=== PATIENT | male | born 1930 | race Caucasian/White ===

== ENCOUNTER → 2017-02-01 | Outpatient (CLI) | payer MEDICARE ==
[~2017-02-01] VITALS: Ht 182.9 cm; Wt 89.6 kg
[~2017-02-01] MED LIST: AMLO5 PO; ATEN25TA PO; CHLORHEXIDINE GLUCONATE 2 % 1 PACK (2 CLOTHS) TOPICAL PRN; GALA8TAB PO; INSULIN HUMAN REGULAR 1,000 UNITS/10 ML VIAL SQ PRN; LACTATED RINGER'S 1000 ML IV PRN; LIPI40TA PO; MEMA1TAB2 PO; METOPROLOL TARTRATE 25 MG TAB PO PRN; PANT40TA3 PO; POVIDONE IODINE 5% (ANTISEPSIS KIT) 4 APPLICATIONS EACH NARE PRN; PRAD150C PO; PROPOFOL 200 MG/20 ML AMP IV ONE; SODIUM CHLORID 0.9% 500 ML IV PRN; VITA100064 PO
[2017-02-01 08:51] VITALS: BP 124/68; PULSE 72; RESP 16; TEMP 98.4; O2SAT 97
[2017-02-01 11:28] VITALS: TEMP 97.4
--- NOTE | 2017-02-01 11:29 | GIPROC ---
[facility] [address] [facility]. [facility], [id number] EGD WITH DILATION PROCEDURE REPORT EXAM DATE: 02/01/2017 PATIENT NAME: Gil Shaw MR#: [id number] BIRTHDATE: 1930 ATTENDING: Arti Campos MD ORDER #: [id number] LIVESTOCK COUNTER: Yusuf Alas and Pamela Kahn STATUS: outpatient INDICATIONS: The patient is a 86 yr old male here for an EGD with dilation due to dysphagia, history of esophageal stricture PROCEDURE PERFORMED: EGD w/ biopsy EGD w/ dilation of esophagus via guidewire MEDICATIONS: None and Per Anesthesia. TOPICAL ANESTHETIC: none CONSENT: The patient understands the risks and benefits of the procedure and understands that these risks include, but are not limited to: sedation, allergic reaction, infection, perforation and/or bleeding. Alternative means of evaluation and treatment include, among others: physical exam, x-rays, and/or surgical intervention. The patient elects to proceed with this endoscopic procedure. medical equipment was checked for proper function. Hand hygiene and appropriate measures for infection prevention was taken. After the risks, benefits and alternatives of the procedure were thoroughly explained, Informed consent was verified, confirmed and timeout was successfully executed by the treatment team. The patient was anesthetized with topical anesthesia and the Pentax EG-[id number] endoscope was introduced through the mouth and advanced to the second portion of the duodenum. The instrument was slowly withdrawn as the mucosa was fully examined. Gastritis antrum-biopsy gastric body polyps stricture distal esophagus hiatal hernia. Dilation was performed at gastroesophageal junction. DILATOR: SIZE(S): RESISTANCE: HEME: APPEARANCE: Dilator: Savary over guidewire Size(s): 14,15 COMMENT: Retroflexed views revealed a hiatal hernia ADVERSE EVENTS: There were no complications. IMPRESSIONS: 1. Gastritis antrum-biopsy gastric body polyps stricture distal esophagus hiatal hernia 2. Retroflexed views revealed a hiatal hernia RECOMMENDATIONS: 1. Await biopsy results. Biopsy results will not be ready for 7-10 days. If you don't hear from us in two weeks, call our office for biopsy results. 2. Begin feeding tomorrow 3. Continue PPI 4. Dilatations PRN 5. Restart anticoagulation REPEAT EXAM: Return as needed for EGD with dilatation Arti Campos MD eSigned: Arti Campos MD 02/01/2017 11:28 AM cc: Marco Antonio Faye M.D. PATIENT NAME: Gil Shaw MR#: [id number]
[2017-02-01 11:44] VITALS: BP 112/74; PULSE 71; RESP 16; O2SAT 96
== END ==
LOC: HEND 08:22
PROVIDERS: ATTEND Internal Medicine Gastroenterology
DX: R13.10 Dysphagia, unspecified (principal); K22.2 Esophageal obstruction; K29.70 Gastritis, unspecified, without bleeding; K31.7 Polyp of stomach and duodenum; K44.9 Diaphragmatic hernia without obstruction or gangrene
CPT/HCPCS: 00740; 43239; 43248; 88305; 88312; C1769

== ENCOUNTER 2017-04-13 19:34 | Inpatient (IN) | payer MEDICARE ==
[~2017-04-13] VITALS: Ht 180.3 cm; Wt 87.0 kg
[~2017-04-13 19:34] MED LIST changes: -CHLORHEXIDINE GLUCONATE 2 % 1 PACK (2 CLOTHS) TOPICAL PRN; -INSULIN HUMAN REGULAR 1,000 UNITS/10 ML VIAL SQ PRN; -LACTATED RINGER'S 1000 ML IV PRN; -METOPROLOL TARTRATE 25 MG TAB PO PRN; -POVIDONE IODINE 5% (ANTISEPSIS KIT) 4 APPLICATIONS EACH NARE PRN; -PROPOFOL 200 MG/20 ML AMP IV ONE; -SODIUM CHLORID 0.9% 500 ML IV PRN
[2017-04-13 19:42] VITALS: BP 118/59; PULSE 72; RESP 16; TEMP 98.7; O2SAT 97
[2017-04-13 19:46] VITALS: BP 118/59; PULSE 86; RESP 14; TEMP 98.7; O2SAT 97
[2017-04-13] MEDS ORDERED: GALA24CA PO (19:56)
[2017-04-13] MEDS ORDERED: SODIUM CHLOR 0.9% 1000 ML INJ 1,000 ML IV ONE (20:27)
[2017-04-13] MEDS ORDERED: SODIUM CHLORIDE 0.9% FLUSH 10 ML FLUSH IVF PRN (20:30)
--- NOTE | 2017-04-13 20:37 | PD ---
HPI Chief Complaint: General Weakness Time Seen by Provider: 20:37 Travel History International Travel<30 days: No Contact w/Intl Traveler<30days: No Traveled to known affect area: No History of Present Illness HPI 86-year-old male presents to the emergency department for evaluation of generalized weakness. Patient has history of atrial fibrillation, hypertension , diabetes, hyperlipidemia. He is on Pradaxa for his A. fib. The family denies any injury. According to family, he was fine yesterday. He saw Dr. Salazar who took him off his galantamine for dementia. However, his weakness started before he was supposed to take the next dose of his galantamine. Family states he has been so weak that he is hardly able to walk. He has had decreased appetite. The family states that they have been having to help him walk which is not normal for him. He normally gets around fine with his cane. He denies any fevers or headache. No chest pressure or shortness of breath. No abdominal pain. No nausea, vomiting, diarrhea. Patient is following asleep often during my exam. They state that his symptoms started around 4:30 this morning. PFSH Past Medical History Hx Anticoagulant Therapy: Yes Arthritis: Yes Cancer: Yes Cardiovascular Problems: Yes (a fib) High Cholesterol: Yes Chemotherapy: No Cerebrovascular Accident: No Diabetes: No Diminished Hearing: No Endocrine: No Gastrointestinal Disorders: Yes (Reflux) GERD: Yes Genitourinary: No Hepatitis: No Hiatal Hernia: No Hypertension: Yes Immune Disorder: No Implanted Vascular Access Dvce: Yes Musculoskeletal: Yes (ARTHRITIS) Neurologic: Yes (DEMENTIA) Psychiatric: No Reproductive: No Respiratory: No Thyroid Disease: No Past Surgical History Abdominal Surgery: No AICD: No Appendectomy: Yes Body Medical Devices: Right knee Cardiac Surgery: No Ear Surgery: No Eye Surgery: Yes (DETACHED RETINA REPAIR) Genitourinary Surgery: Yes Gynecologic Surgery: No Joint Replacement: Yes (R TKA) Oral Surgery: No Pacemaker: No Prostatectomy: Yes (Partial) Thoracic Surgery: No Other Surgery: Yes (Right knee, appentecdomy, TURP, esoph stricture stretched) Social History Alcohol Use: Yes (2-3 times weekly) Tobacco Use: No (QUIT 1964) Substance Use: No Allergies-Medications (Allergen,Severity, Reaction): Coded Allergies: Sulfa (Verified Allergy, Severe, MIGRAINES, RED EYES, 04/13/17) Reported Meds & Prescriptions Reported Meds & Active Scripts Active Pradaxa (Dabigatran) 150 Mg Cap 150 Mg PO BID resume on 07/27 Reported Galantamine ER (Galantamine Hydrobromide) 24 Mg Caper 24 Mg PO DAILY Vitamin D3 (Cholecalciferol) 1,000 Unit Tab 1,000 Units PO DAILY Pantoprazole (Pantoprazole Sodium) 40 Mg Tab 40 Mg PO BID Memantine 10 Mg Tab 10 Mg PO BID Norvasc (Amlodipine Besylate) 5 Mg Tab 5 Mg PO BID Lipitor (Atorvastatin Calcium) 40 Mg Tab 40 Mg PO HS Atenolol 25 Mg Tab 25 Mg PO DAILY Review of Systems Except as stated in HPI: all other systems reviewed are Neg Physical Exam Narrative GENERAL: Well-nourished, well-developed elderly male patient, afebrile. SKIN: Focused skin assessment warm/dry. HEAD: Normocephalic. Atraumatic. EYES: No scleral icterus. No injection or drainage. NECK: Supple, trachea midline. No JVD or lymphadenopathy. CARDIOVASCULAR: Regular rate and rhythm without murmurs, gallops, or rubs. RESPIRATORY: Breath sounds equal bilaterally. No accessory muscle use. Lungs sounds clear to auscultation. GASTROINTESTINAL: Abdomen soft, non-tender, nondistended. MUSCULOSKELETAL: No cyanosis, or edema. Bilateral upper and lower extremity strength 5/5. All extremities are neurovascularly intact. BACK: Nontender without obvious deformity. No CVA tenderness. Data Data Last Documented VS Vital Signs Date Time Temp Pulse Resp B/P Pulse Ox O2 Delivery O2 Flow Rate FiO2 04/13/17 22:30 82 12 120/64 98 04/13/17 19:46 Room Air 04/13/17 19:46 98.7 Orders Electrocardiogram (04/13/17 20:15) Complete Blood Count With Diff (04/13/17 20:15) Comprehensive Metabolic Panel (04/13/17 20:15) Iv Access Insert/Monitor (04/13/17 20:15) Lactic Acid (04/13/17 20:15) Act Partial Throm Time (Ptt) (04/13/17 20:27) Prothrombin Time / Inr (Pt) (04/13/17 20:27) Urinalysis - C+S If Indicated (04/13/17 20:27) Chest, Single Ap (04/13/17 20:27) Ct Brain W/O Iv Contrast(Rout) (04/13/17 20:27) Ecg Monitoring (04/13/17 20:27) Oximetry (04/13/17 20:27) Sodium Chloride 0.9% Flush (Ns Flush) (04/13/17 20:30) Sodium Chlor 0.9% 1000 Ml Inj (Ns 1000 M (04/13/17 20:27) Blood Culture (04/13/17 20:33) Ckmb (Isoenzyme) Profile (04/13/17 20:18) Magnesium (Mg) (04/13/17 20:18) Troponin I (04/13/17 20:18) CKMB (04/13/17 20:18) CKMB% (04/13/17 20:18) Cath For Specimen (04/13/17 21:40) Urine Culture (04/13/17 22:09) Ceftriaxone Inj (Rocephin Inj) (04/13/17 23:00) Thyroid Stimulating Hormone (04/13/17 22:56) Free Thyroxine (T4) (04/13/17 22:56) Rapid Plasma Regin (Rpr) W Ttr (04/13/17 22:56) Vitamin B12 (04/13/17 22:56) Folate, Serum (04/13/17 22:56) Ammonia (04/13/17 22:56) Place In Observation (04/13/17 ) Code Status (04/13/17 22:56) Vital Signs (Adult) Q4H (04/13/17 22:56) Activity Oob With Assistance (04/13/17 22:56) Outsole Cutter Machine / Telemetry .CONTINUOUS (04/13/17 22:56) Diet Heart Healthy (04/14/17 Breakfast) Sodium Chloride 0.9% Flush (Ns Flush) (04/13/17 23:00) Sodium Chloride 0.9% Flush (Ns Flush) (04/14/17 09:00) Acetaminophen (Tylenol) (04/13/17 23:00) Ondansetron Inj (Zofran Inj) (04/13/17 23:00) Basic Metabolic Panel (Bmp) (04/14/17 06:00) Complete Blood Count With Diff (04/14/17 06:00) Electrocardiogram (04/13/17 22:56) Pt Request For Service (04/13/17 22:56) Scd Bilateral/Knee High KUNLA.BID (04/13/17 22:56) Naloxone Inj (Narcan Inj) (04/13/17 23:00) Magnesium Hydroxide Liq (Milk Of Magnesi (04/13/17 23:00) Echo 2d Comp With Doppler (04/13/17 ) Amlodipine (Norvasc) (04/14/17 09:00) Atenolol (Tenormin) (04/14/17 09:00) Atorvastatin (Lipitor) (04/14/17 21:00) Cholecalciferol (Vitamin D3) (04/14/17 09:00) Dabigatran (Pradaxa) (04/14/17 09:00) Memantine (Namenda) (04/14/17 09:00) Pantoprazole (Protonix) (04/14/17 09:00) Admit Order (Ed Use Only) (04/13/17 23:01) Labs Laboratory Tests Test 04/13/17 04/13/17 04/13/17 20:18 20:30 22:09 White Blood Count 14.5 TH/MM3 Red Blood Count 3.63 MIL/MM3 Hemoglobin 12.0 GM/DL Hematocrit 35.8 % Mean Corpuscular Volume 98.5 FL Mean Corpuscular Hemoglobin 33.1 PG Mean Corpuscular Hemoglobin 33.6 % Concent Red Cell Distribution Width 13.9 % Platelet Count 176 TH/MM3 Mean Platelet Volume 9.7 FL Neutrophils (%) (Auto) 81.4 % Lymphocytes (%) (Auto) 4.9 % Monocytes (%) (Auto) 13.5 % Eosinophils (%) (Auto) 0.0 % Basophils (%) (Auto) 0.2 % Neutrophils # (Auto) 11.8 TH/MM3 Lymphocytes # (Auto) 0.7 TH/MM3 Monocytes # (Auto) 1.9 TH/MM3 Eosinophils # (Auto) 0.0 TH/MM3 Basophils # (Auto) 0.0 TH/MM3 CBC Comment DIFF FINAL Differential Comment Sodium Level 135 MEQ/L Potassium Level 4.0 MEQ/L Chloride Level 104 MEQ/L Carbon Dioxide Level 23.0 MEQ/L Anion Gap 8 MEQ/L Blood Urea Nitrogen 22 MG/DL Creatinine 1.09 MG/DL Estimat Glomerular Filtration 64 ML/MIN Rate Random Glucose 163 MG/DL Lactic Acid Level 1.9 mmol/L Calcium Level 8.5 MG/DL Magnesium Level 1.8 MG/DL Total Bilirubin 1.4 MG/DL Aspartate Amino Transf 15 U/L (AST/SGOT) Alanine Aminotransferase 14 U/L (ALT/SGPT) Alkaline Phosphatase 79 U/L Total Creatine Kinase 131 U/L Creatine Kinase MB LESS THAN 0.5 NG/ML Troponin I LESS THAN 0.02 NG/ML Total Protein 7.2 GM/DL Albumin 3.1 GM/DL Prothrombin Time 12.8 SEC Prothromb Time International 1.2 RATIO Ratio Activated Partial 31.4 SEC Thromboplast Time Urine Color YELLOW Urine Turbidity CLOUDY Urine pH 8.0 Urine Specific [place] 1.023 Urine Protein 100 mg/dL Urine Glucose (UA) NEG mg/dL Urine Ketones 10 mg/dL Urine Occult Blood SMALL Urine Nitrite NEG Urine Bilirubin NEG Urine Urobilinogen LESS THAN 2.0 MG/DL Urine Leukocyte Esterase LARGE Urine RBC 8 /hpf Urine WBC /hpf Urine WBC Clumps MANY Urine Triple Phosphate OCC /hpf Crystals Urine Bacteria MANY /hpf Urine Mucus FEW /lpf Microscopic Urinalysis Comment CULTURE INDICATED MDM Medical Decision Making Medical Screen Exam Complete: Yes Emergency Medical Condition: Yes Medical Record Reviewed: Yes Interpretation(s) chest x-ray - CONCLUSION: No acute disease. CT brain - CONCLUSION: Cerebral atrophy and chronic ischemic small vessel vasculopathy. Differential Diagnosis Electrolyte abnormality versus dehydration versus pneumonia versus UTI versus sepsis versus intracranial abnormality Narrative Course 86 year old elderly male presents to the emergency department with his 2 daughters and at bedside for evaluation of generalized weakness that started this morning. EKG shows atrial fibrillation, heart rate 89, no acute ST changes. CBC, CMP, magnesium, CK, troponin, lactic acid, PTT, PT/INR, UA, blood cultures 2 are ordered and pending. Chest x-ray and CT of the brain are ordered and pending. Patient is given normal saline 1 L IV bolus. CBC shows leukocytosis 14.5, hemoglobin 12.0, hematocrit 35.8, neutrophilia 81.4. CMP shows no acute abnormality. Magnesium is 1.8. CK is 131. Troponin is less than 0.02. Lactic acid is 1.9. Coags show no acute abnormality. UA shows large leukocyte esterase, 8 RBC, innumerable WBC, many wbc clumps, many bacteria. Chest x-ray shows no acute disease. CT of the brain shows cerebral atrophy and chronic ischemic small vessel vasculopathy. Patient started on Rocephin 1 g IV. [facility] is paged for admission. Dr. Moreland accepted admission. Diagnosis Primary Impression: UTI (urinary tract infection) Qualified Code: N30.01 - Acute cystitis with hematuria Additional Impression: Generalized weakness Admitting Information Admitting Physician Requests: Deanne Childers Apr 13, 2017 20:37
--- NOTE | 2017-04-13 20:45 | RADRPT ---
EXAM DATE/TIME: 04/13/2017 20:26 [facility] COMPARISON: CHEST SINGLE AP, July 22, 2016, 1:26. INDICATIONS : Syncope. Weakness. MEDICAL HISTORY : None. SURGICAL HISTORY : None. ENCOUNTER: Initial ACUITY: 1 day PAIN SCORE: 5/10 LOCATION: Bilateral chest FINDINGS: A single view of the chest demonstrates the lungs to be symmetrically aerated without evidence of mas s, infiltrate or effusion. The cardiomediastinal contours are unremarkable. Osseous structures are intact. CONCLUSION: No acute disease. Guzman Sharp MD on April 13, 2017 at 20:41 Board Certified Radiologist. This report was verified electronically.
[2017-04-13 20:48] LABS: AUTOMATED NEUTROPHIL # 11.8 TH/MM3 (1.8-7.7); BASOPHIL % 0.2 % (0.0-2.0); HEMATOCRIT 35.8 % (39.0-51.0); HEMO FLAGS DIFF FINAL; LYMPH % 4.9 % (9.0-44.0); LYMPHOCYTE # 0.7 TH/MM3 (1.0-4.8); MEAN CELL VOLUME 98.5 FL (80.0-100.0); MEAN CORPUSCULAR HEMOGLOBIN 33.1 PG (27.0-34.0); MEAN CORPUSCULAR HGB CONC 33.6 % (32.0-36.0); MONO % 13.5 % (0.0-8.0); NEUT % 81.4 % (16.0-70.0); PLATELET COUNT 176 TH/MM3 (150-450); RED BLOOD COUNT 3.63 MIL/MM3 (4.50-5.90); RED CELL DISTRIBUTION WIDTH 13.9 % (11.6-17.2); WHITE BLOOD COUNT 14.5 TH/MM3 (4.0-11.0)
--- NOTE | 2017-04-13 20:57 | RADRPT ---
EXAM DATE/TIME: 04/13/2017 20:39 [facility] COMPARISON: No previous studies available for comparison. INDICATIONS : General weakness. RADIATION DOSE: 56.35 CTDIvol (mGy) MEDICAL HISTORY : Dementia. Gastroesophageal reflux disease. Myocardial infarction.Hypertension. SURGICAL HISTORY : Appendectomy. Prostatectomy.TURP. ENCOUNTER: Initial ACUITY: 1 day PAIN SCALE: 0/10 LOCATION: cranial TECHNIQUE: Multiple contiguous axial images were obtained of the head. Using automated exposure control and adj ustment of the mA and/or kV according to patient size, radiation dose was kept as low as reasonably a chievable to obtain optimal diagnostic quality images. DICOM format image data is available electro nically for review and comparison. FINDINGS: There is marked central and cortical atrophy with dilatation of ventricular and sulcal spaces. Scatte red low densities in white matter. There is no parenchymal hemorrhage, acute infarction or mass lesi on identified. There are no extra-axial fluid collections appreciated. The posterior fossa is unrem arkable with midline fourth ventricle. The portion of the orbits and paranasal sinuses visualized ar e unremarkable. CONCLUSION: Cerebral atrophy and chronic ischemic small vessel vasculopathy. Guzman Sharp MD on April 13, 2017 at 20:49 Board Certified Radiologist. This report was verified electronically.
[2017-04-13 21:07] LABS: ALT (GPT) 14 U/L (12-78); ANION GAP 8 MEQ/L (5-15); AST (GOT) 15 U/L (15-37); BLOOD UREA NITROGEN 22 MG/DL (7-18); CHLORIDE 104 MEQ/L (98-107); GLOMERULAR FILTRATION RATE 64 ML/MIN (>89); SODIUM (NA) 135 MEQ/L (136-145)
[2017-04-13 21:10] LABS: ALKALINE PHOSPHATASE 79 U/L (45-117); TOTAL BILIRUBIN ADULT 1.4 MG/DL (0.2-1.0)
[2017-04-13 21:20] VITALS: BP 116/60; PULSE 84; RESP 12; O2SAT 100
[2017-04-13 21:20] LABS: MAGNESIUM 1.8 MG/DL (1.5-2.5)
[2017-04-13 21:22] LABS: CREATINE KINASE 131 U/L (39-308)
[2017-04-13 21:24] LABS: APTT (PATIENT) 31.4 SEC (24.3-30.1); INTERNATIONAL NORMALIZED RATIO 1.2 RATIO; PROTHROMBIN TIME - PATIENT 12.8 SEC (9.8-11.6)
[2017-04-13 21:34] LABS: CKMB LESS THAN 0.5 NG/ML (0.5-3.6)
[2017-04-13 22:30] VITALS: BP 120/64; PULSE 82; RESP 12; O2SAT 98
[2017-04-13 22:50] LABS: BACTERIA, URINE MANY /hpf; BLOOD, URINE SMALL (NEG); GLUCOSE,URINE NEG (NEG); KETONE, URINE 10 mg/dL (NEG); MUCUS URINE FEW /lpf (OCC); NITRITE,URINE NEG (NEG); TRIPLE PHOSPHATE CRYSTAL,URINE OCC /hpf; URINE COLOR YELLOW (YELLW/STRAW)
[2017-04-13 22:52] LABS: COMMENT (UR) CULTURE INDICATED; CULTURE IF INDICATED CULTURE INDICATED
[2017-04-13] MEDS ORDERED: MAGNESIUM HYDROXIDE SUSP 30 ML CUP PO PRN (23:00)
[2017-04-13] MEDS ORDERED: NALOXONE HCL 0.4 MG/ML AMP IV PRN (23:00)
[2017-04-13] MEDS ORDERED: SODIUM CHLORIDE 0.9% FLUSH 10 ML FLUSH IV FLUSH PRN (23:00)
[2017-04-13] MEDS ORDERED: ONDANSETRON HCL 4 MG/2 ML VIAL IVP PRN (23:00)
[2017-04-13] MEDS ORDERED: cefTRIAXone INJ 1,000 MG in SODIUM CHLORIDE 0.9% INJ 100 ML IV ONE (23:00)
[2017-04-14] VITALS (11 sets, daily range): BP systolic 115–137; BP diastolic 65–76; PULSE 68–92; RESP 18–20; TEMP 97.8–98.7; O2SAT 92–97
[2017-04-14 01:13] LABS: FREE T4 1.45 NG/DL (0.76-1.46)
[2017-04-14 08:33] LABS: AUTOMATED NEUTROPHIL # 10.3 TH/MM3 (1.8-7.7); BASOPHIL # 0.1 TH/MM3 (0-0.2); BASOPHIL % 0.5 % (0.0-2.0); HEMATOCRIT 37.3 % (39.0-51.0); HEMO FLAGS DIFF FINAL; LYMPH % 9.5 % (9.0-44.0); LYMPHOCYTE # 1.3 TH/MM3 (1.0-4.8); MEAN CELL VOLUME 96.9 FL (80.0-100.0); MEAN CORPUSCULAR HEMOGLOBIN 33.4 PG (27.0-34.0); MEAN CORPUSCULAR HGB CONC 34.5 % (32.0-36.0); MONO % 12.6 % (0.0-8.0); NEUT % 77.4 % (16.0-70.0); PLATELET COUNT 167 TH/MM3 (150-450); RED BLOOD COUNT 3.85 MIL/MM3 (4.50-5.90); WHITE BLOOD COUNT 13.2 TH/MM3 (4.0-11.0)
[2017-04-14] MEDS: amLODIPine BESYLATE 5 MG TAB PO SCH ×2 (09:00→20:09)
[2017-04-14] MEDS: DABIGATRAN ETEXILATE 150 MG CAP PO SCH ×2 (09:00→20:08)
[2017-04-14] MEDS: ATENOLOL 25 MG TAB PO SCH (09:00)
[2017-04-14] MEDS: CHOLECALCIFEROL (VIT D3) 1000 UNIT TAB PO SCH (09:00)
[2017-04-14] MEDS: MEMANTINE HCL 10 MG TAB PO SCH ×2 (09:00→20:09)
[2017-04-14] MEDS: SODIUM CHLORIDE 0.9% FLUSH 10 ML FLUSH IV FLUSH SCH ×2 (09:00→20:13)
[2017-04-14] MEDS: PANTOPRAZOLE SOD 40 MG DELAYED RELEASE TAB PO SCH ×2 (09:00→20:08)
[2017-04-14 09:01] LABS: BICARBONATE 23.8 MEQ/L (21.0-32.0); POTASSIUM 3.4 MEQ/L (3.5-5.1)
--- NOTE | 2017-04-14 12:17 | HHI.HP ---
HPI Service [facility] Hospitalists Primary Care Physician Marco Antonio Faye MD Admission Diagnosis UTI, generalized weakness Chief Complaint: worsening generalized weakness. Travel History International Travel<30 Days: No Contact w/Intl Traveler <30 Da: No Traveled to Known Affected Are: No History of Present Illness Patient is a pleasant 86-year-old male with multiple medical problems including hypertension, atrial fibrillation, hyperlipidemia, and dementia. Most recently patient was hospitalized at [facility] July 22 through July due to esophageal stricture, food bolus obstruction of the esophagus, and new onset atrial fibrillation. Patient now returns to the [facility] ER with complaints of worsening generalized weakness. Patient's explains that he has been having a gradual decline. Previously patient ambulated with a cane only outside of the house, but now he needs the cane to ambulate even with in the house. His fatigue has greatly worsened over the last few days. Patient became fatigued yesterday to the point where he was unable to ambulate without significant assistance from his family. Workup in the ER revealed urinary tract infection and patient was started on intravenous Rocephin. Patient admitted to [facility] for further evaluation and treatment. I reviewed patient's last neurology visit with Dr. Salazar (04/12/17). Patient complained of fatigue at that time as well. Dr. Salazar was concerned that possibly patient's weakness could be related to his galantamine and asked that the family hold the galantamine for a week and see if his symptoms improved. Patient denies chest pain, palpitations, nausea and vomiting, diaphoresis, or worsening shortness of breath. Past Family Social History Past Medical History 1) hypertension 2) atrial fibrillation - on pradaxa - pt follows with Dr. Chapa 3) hyperlipidemia 4) dementia 5) esophageal stricture, status post dilation 6) pulmonary hypertension, mild 7) GERD 8) BPH - TURP 08/10/13 - Pt's Urologist is Dr. 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 History of Appendectomy 193 2. History of Cataract Surgery left eye in 2007 3. History of Complete Colonoscopy Colonoscopy on: 03-07-04 (diverticuloisis in the descending and sigmoid colon); 04-02-11 (normal colon) 4. History of Diagnostic Esophagogastroduodenoscopy 08/31/[address] Campos revealed gastritis in the antrum, stricture at the GE junction dilated to 14 mm and a sessile polyp in the body of the stomach. Pathology revealed mild chronic active gastritis and a hyperplastic polyp.f/u in six weeks.EGD on: 07-22-16 (food impaction distal esophagus; stricture of distal esophagus); 07-26-16 (dilation of an esophageal stricture , gastritis, gastric polyps, hiatal hernia) 5. History of Discission Of Secondary Membranous Cataract By Laser 6. History of Esophageal Dilation patient has had multiple dilations in the past. Last two: 06-17-05; (EGD with dilation of stricture at GE junction, gastritis, polyp in stomach) 7. History of Repair Of Retinal Detachment left eye 1994 8. History of Sigmoidoscopy (Fiberoptic) 9. History of Stress Test By Pharmacologic Challenge A myocardial perfusion scan on 06-25-16 was negative with an EF of 68%. 10. History of Total Knee Arthroplasty right knee 1997 11. History of Transurethral Resection Of Prostate (TURP) TURP on 08-10-13 Reported Medications Reported Meds & Active Scripts Active Pradaxa (Dabigatran) 150 Mg Cap 150 Mg PO BID resume on 07/27 Reported Galantamine ER (Galantamine Hydrobromide) 24 Mg Caper 24 Mg PO DAILY Vitamin D3 (Cholecalciferol) 1,000 Unit Tab 1,000 Units PO DAILY Pantoprazole (Pantoprazole Sodium) 40 Mg Tab 40 Mg PO BID Memantine 10 Mg Tab 10 Mg PO BID Norvasc (Amlodipine Besylate) 5 Mg Tab 5 Mg PO BID Lipitor (Atorvastatin Calcium) 40 Mg Tab 40 Mg PO HS Atenolol 25 Mg Tab 25 Mg PO DAILY Allergies: Coded Allergies: Sulfa (Verified Allergy, Severe, MIGRAINES, RED EYES, 04/13/17) Family History Noncontributory Social History - - Retired - Former smoker - No alcohol use - no illicit street drugs - Physical Exam Vital Signs Vital Signs Date Time Temp Pulse Resp B/P Pulse Ox O2 Delivery O2 Flow Rate FiO2 04/14/17 10:58 78 04/14/17 08:14 97.8 75 18 137/66 96 04/14/17 05:13 98.4 74 18 129/67 96 04/14/17 02:14 79 04/14/17 00:06 98.0 68 18 115/67 97 04/13/17 22:30 82 12 120/64 98 04/13/17 21:20 84 12 116/60 100 04/13/17 19:46 82 16 98 Room Air 04/13/17 19:46 98.7 86 14 118/59 97 04/13/17 19:42 98.7 72 16 118/59 97 Physical Exam GENERAL: This is a well-nourished, well-developed patient, in no apparent distress. SKIN: No rashes, ecchymoses or lesions. Cool and dry. HEAD: Atraumatic. Normocephalic. No temporal or scalp tenderness. EYES: Pupils equal round and reactive. Extraocular motions intact. No scleral icterus. No injection or drainage. ENT: Nose without bleeding, purulent drainage or septal hematoma. Throat without erythema, tonsillar hypertrophy or exudate. Uvula midline. Airway patent. NECK: Trachea midline. No JVD or lymphadenopathy. Supple, nontender, no meningeal signs. CARDIOVASCULAR: Regular rate and rhythm without murmurs, gallops, or rubs. RESPIRATORY: Clear to auscultation. Breath sounds equal bilaterally. No wheezes , rales, or rhonchi. GASTROINTESTINAL: Abdomen soft, non-tender, nondistended. No hepato-splenomegaly , or palpable masses. No guarding. MUSCULOSKELETAL: Extremities without clubbing, cyanosis, or edema. No joint tenderness, effusion, or edema noted. No calf tenderness. Negative Homans sign bilaterally. NEUROLOGICAL: Awake and alert. Cranial nerves II through XII intact. Motor and sensory grossly within normal limits. Five out of 5 muscle strength in all muscle groups. Normal speech. Laboratory Laboratory Tests Test 04/13/17 04/13/17 04/13/17 04/14/17 20:18 20:30 22:09 08:15 White Blood Count 14.5 13.2 Red Blood Count 3.63 3.85 Hemoglobin 12.0 12.9 Hematocrit 35.8 37.3 Mean Corpuscular Volume 98.5 96.9 Mean Corpuscular Hemoglobin 33.1 33.4 Mean Corpuscular Hemoglobin 33.6 34.5 Concent Red Cell Distribution Width 13.9 14.0 Platelet Count 176 167 Mean Platelet Volume 9.7 9.5 Neutrophils (%) (Auto) 81.4 77.4 Lymphocytes (%) (Auto) 4.9 9.5 Monocytes (%) (Auto) 13.5 12.6 Eosinophils (%) (Auto) 0.0 0.0 Basophils (%) (Auto) 0.2 0.5 Neutrophils # (Auto) 11.8 10.3 Lymphocytes # (Auto) 0.7 1.3 Monocytes # (Auto) 1.9 1.7 Eosinophils # (Auto) 0.0 0.0 Basophils # (Auto) 0.0 0.1 CBC Comment DIFF FINAL DIFF FINAL Differential Comment Sodium Level 135 137 Potassium Level 4.0 3.4 Chloride Level 104 105 Carbon Dioxide Level 23.0 23.8 Anion Gap 8 8 Blood Urea Nitrogen 22 18 Creatinine 1.09 0.84 Estimat Glomerular Filtration 64 87 Rate Random Glucose 163 121 Lactic Acid Level 1.9 Calcium Level 8.5 8.7 Magnesium Level 1.8 Total Bilirubin 1.4 Aspartate Amino Transf 15 (AST/SGOT) Alanine Aminotransferase 14 (ALT/SGPT) Alkaline Phosphatase 79 Total Creatine Kinase 131 Creatine Kinase MB LESS THAN 0.5 Troponin I LESS THAN 0.02 Total Protein 7.2 Albumin 3.1 Vitamin B12 Level 217 Folate 15.8 Free Thyroxine 1.45 Thyroid Stimulating Hormone 0.893 3rd Gen Prothrombin Time 12.8 Prothromb Time International 1.2 Ratio Activated Partial 31.4 Thromboplast Time Urine Color YELLOW Urine Turbidity CLOUDY Urine pH 8.0 Urine Specific [place] 1.023 Urine Protein 100 Urine Glucose (UA) NEG Urine Ketones 10 Urine Occult Blood SMALL Urine Nitrite NEG Urine Bilirubin NEG Urine Urobilinogen LESS THAN 2.0 Urine Leukocyte Esterase LARGE Urine RBC 8 Urine WBC Urine WBC Clumps MANY Urine Triple Phosphate OCC Crystals Urine Bacteria MANY Urine Mucus FEW Microscopic Urinalysis Comment CULTURE INDICATED Ammonia 14 Date/Time Procedure Status Source Growth 04/13/17 22:09 Urine Culture Received Urine Random Urine Pending 04/13/17 21:38 Aerobic Blood Culture - Preliminary Resulted Blood Peripheral NO GROWTH IN 1 DAY 04/13/17 21:38 Anaerobic Blood Culture - Preliminary Resulted Blood Peripheral NO GROWTH IN 1 DAY Result Diagram: 04/14/17 0815 04/14/17 0815 Imaging Last Impressions Head CT 04/13/172026 Signed Impressions: Service Date/Time: Thursday, April 13, 2017 20:39 - CONCLUSION: Cerebral atrophy and chronic ischemic small vessel vasculopathy. Guzman Sharp MD Chest X-Ray 04/13/172026 Signed Impressions: Service Date/Time: Thursday, April 13, 2017 20:26 - CONCLUSION: No acute disease. Guzman Sharp MD Septic Shock Reassessment Heart: Regular rate and rhythm Lungs: Clear Skin: Warm Peripheral Pulses: Bounding Right Radial Bounding Left Radial Bounding Right Popliteal Bounding Left Popliteal Bounding Right Dorsalis Pedis Bounding Left Dorsalis Pedis Bounding Right Posterior Tibial Bounding Left Posterior Tibial Capillary Refill: Brisk Assessment and Plan Problem List: (1) UTI (urinary tract infection) Status: Acute Plan: - Patient started on Rocephin - Awaiting urine culture (2) Generalized weakness Status: Acute Plan: - Likely exacerbated by patient's urinary tract infection - Echocardiogram pending - Continue physical therapy - Patient would benefit from SNF at the end of this hospitalization - anticipate d/c to SNF 04/15/17 - Family specifically would like Mr. Shaw to go to [facility]. I will defer that process to case management. (3) Atrial fibrillation Status: Chronic Plan: - Atenolol, pradaxa (4) HTN (hypertension) Status: Chronic Plan: - stable - metoprolol (5) Dementia Status: Acute Plan: - Patient follows with Dr. Salazar - Patient instructed by been awake to hold his gland to mean for a week to see if that was causing his fatigue - Namenda (6) Diabetes mellitus type 2, diet-controlled Status: Chronic Plan: - Diet controlled (7) Esophageal stricture Status: Acute Plan: - s/p dilation - PPI Problem Qualifiers (1) UTI (urinary tract infection): Qualified Code: N30.01 - Acute cystitis with hematuria (2) Atrial fibrillation: Qualified Code: I48.2 - Chronic atrial fibrillation (3) HTN (hypertension): Qualified Code: I10 - Essential hypertension Jean-Paul Moreland DO Apr 14, 2017 12:16
[2017-04-14] MEDS ORDERED: POTASSIUM CHLORIDE 20 MEQ CONTROLLED RELEASE TAB PO ONE (12:45)
[2017-04-14] MEDS: PHENAZOPYRIDINE HCL 100 MG TAB PO SCH (17:03)
[2017-04-14] MEDS: 1/2 NS + KCL 20 MEQ INJ 1,000 ML IV SCH (17:03)
[2017-04-14] MEDS: ATORVASTATIN 40 MG TAB PO SCH (20:08)
[2017-04-15] VITALS (7 sets, daily range): BP systolic 119–144; BP diastolic 68–93; PULSE 80–107; RESP 14–20; TEMP 97.9–99; O2SAT 92–95
[2017-04-15] MEDS: PHENAZOPYRIDINE HCL 100 MG TAB PO SCH ×3 (00:58→15:50)
[2017-04-15] MEDS: 1/2 NS + KCL 20 MEQ INJ 1,000 ML IV SCH (04:29)
[2017-04-15 07:54] LABS: AUTOMATED NEUTROPHIL # 8.1 TH/MM3 (1.8-7.7); BASOPHIL % 0.4 % (0.0-2.0); EOSINOPHIL # 0.1 TH/MM3 (0-0.4); EOSINOPHIL % 0.5 % (0.0-4.0); HEMATOCRIT 35.9 % (39.0-51.0); HEMO FLAGS DIFF FINAL; LYMPH % 11.7 % (9.0-44.0); LYMPHOCYTE # 1.3 TH/MM3 (1.0-4.8); MEAN CELL VOLUME 97.9 FL (80.0-100.0); MEAN CORPUSCULAR HEMOGLOBIN 33.6 PG (27.0-34.0); MEAN CORPUSCULAR HGB CONC 34.4 % (32.0-36.0); MONO % 13.4 % (0.0-8.0); PLATELET COUNT 184 TH/MM3 (150-450); RED BLOOD COUNT 3.67 MIL/MM3 (4.50-5.90); RED CELL DISTRIBUTION WIDTH 13.7 % (11.6-17.2)
[2017-04-15 08:16] LABS: BICARBONATE 24.1 MEQ/L (21.0-32.0); POTASSIUM 3.9 MEQ/L (3.5-5.1)
[2017-04-15] MEDS: PANTOPRAZOLE SOD 40 MG DELAYED RELEASE TAB PO SCH ×2 (08:20→20:08)
[2017-04-15] MEDS: DABIGATRAN ETEXILATE 150 MG CAP PO SCH ×2 (08:20→20:08)
[2017-04-15] MEDS: MEMANTINE HCL 10 MG TAB PO SCH ×2 (08:20→20:08)
[2017-04-15] MEDS: ATENOLOL 25 MG TAB PO SCH (08:20)
[2017-04-15] MEDS: SODIUM CHLORIDE 0.9% FLUSH 10 ML FLUSH IV FLUSH SCH ×2 (08:20→20:09)
[2017-04-15] MEDS: CHOLECALCIFEROL (VIT D3) 1000 UNIT TAB PO SCH (08:20)
[2017-04-15] MEDS: amLODIPine BESYLATE 5 MG TAB PO SCH ×2 (08:20→20:08)
[2017-04-15] MEDS ORDERED: cefTRIAXone INJ 1,000 MG in SODIUM CHLORIDE 0.9% INJ 100 ML IV SCH (09:00)
--- NOTE | 2017-04-15 09:29 | EKG ---
Date Performed: 04/13/2017 Time Performed: 19:44:59 PTAGE: 86 years EKG: ATRIAL FIBRILLATION WITH ABERRANT CONDUCTION OR VENTRICULAR PREMATURE COMPLEXES NONSPECIFIC ST & T-WAVE ABNORMALITY Consider anterolateral ischemia ABNORMAL RHYTHM ECG PREVIOUS TRACING : 07/21/2016 20.45 DOCTOR: Skip Garibay Interpretating Date/Time 04/15/2017 09:29:00
[2017-04-15 10:30] LABS: RAPID PLASMA REAGIN SCREEN NON-REACTIVE (NON-REACTVE)
--- NOTE | 2017-04-15 11:01 | HHI.PR ---
Subjective Remarks No new complaints. Afebrile present at bedside and is agreeable to rehab. Objective Vitals Vital Signs Date Time Temp Pulse Resp B/P Pulse Ox O2 Delivery O2 Flow Rate FiO2 04/15/17 08:06 95 Nasal Cannula 2.00 04/15/17 07:43 98.1 88 14 131/68 95 04/15/17 04:24 98.1 95 18 142/93 92 04/14/17 23:45 98.7 68 18 129/76 92 04/14/17 20:23 82 04/14/17 19:38 98.1 92 18 130/74 92 04/14/17 16:10 97.8 85 20 132/65 96 04/14/17 14:56 71 04/14/17 12:00 97.9 87 18 130/75 96 04/14/17 10:58 78 Result Diagram: 04/15/17 0706 04/15/17 0706 Other Results Laboratory Tests Test 04/13/17 04/13/17 04/13/17 04/14/17 20:18 20:30 22:09 08:15 White Blood Count 14.5 TH/MM3 13.2 TH/MM3 Red Blood Count 3.63 MIL/MM3 3.85 MIL/MM3 Hemoglobin 12.0 GM/DL 12.9 GM/DL Hematocrit 35.8 % 37.3 % Mean Corpuscular Volume 98.5 FL 96.9 FL Mean Corpuscular Hemoglobin 33.1 PG 33.4 PG Mean Corpuscular Hemoglobin 33.6 % 34.5 % Concent Red Cell Distribution Width 13.9 % 14.0 % Platelet Count 176 TH/MM3 167 TH/MM3 Mean Platelet Volume 9.7 FL 9.5 FL Neutrophils (%) (Auto) 81.4 % 77.4 % Lymphocytes (%) (Auto) 4.9 % 9.5 % Monocytes (%) (Auto) 13.5 % 12.6 % Eosinophils (%) (Auto) 0.0 % 0.0 % Basophils (%) (Auto) 0.2 % 0.5 % Neutrophils # (Auto) 11.8 TH/MM3 10.3 TH/MM3 Lymphocytes # (Auto) 0.7 TH/MM3 1.3 TH/MM3 Monocytes # (Auto) 1.9 TH/MM3 1.7 TH/MM3 Eosinophils # (Auto) 0.0 TH/MM3 0.0 TH/MM3 Basophils # (Auto) 0.0 TH/MM3 0.1 TH/MM3 CBC Comment DIFF FINAL DIFF FINAL Differential Comment Sodium Level 135 MEQ/L 137 MEQ/L Potassium Level 4.0 MEQ/L 3.4 MEQ/L Chloride Level 104 MEQ/L 105 MEQ/L Carbon Dioxide Level 23.0 MEQ/L 23.8 MEQ/L Anion Gap 8 MEQ/L 8 MEQ/L Blood Urea Nitrogen 22 MG/DL 18 MG/DL Creatinine 1.09 MG/DL 0.84 MG/DL Estimat Glomerular Filtration 64 ML/MIN 87 ML/MIN Rate Random Glucose 163 MG/DL 121 MG/DL Lactic Acid Level 1.9 mmol/L Calcium Level 8.5 MG/DL 8.7 MG/DL Magnesium Level 1.8 MG/DL Total Bilirubin 1.4 MG/DL Aspartate Amino Transf 15 U/L (AST/SGOT) Alanine Aminotransferase 14 U/L (ALT/SGPT) Alkaline Phosphatase 79 U/L Total Creatine Kinase 131 U/L Creatine Kinase MB LESS THAN 0.5 NG/ML Troponin I LESS THAN 0.02 NG/ML Total Protein 7.2 GM/DL Albumin 3.1 GM/DL Vitamin B12 Level 217 PG/ML Folate 15.8 NG/ML Free Thyroxine 1.45 NG/DL Thyroid Stimulating Hormone 0.893 uIU/ML 3rd Gen Prothrombin Time 12.8 SEC Prothromb Time International 1.2 RATIO Ratio Activated Partial 31.4 SEC Thromboplast Time Urine Color YELLOW Urine Turbidity CLOUDY Urine pH 8.0 Urine Specific [place] 1.023 Urine Protein 100 mg/dL Urine Glucose (UA) NEG mg/dL Urine Ketones 10 mg/dL Urine Occult Blood SMALL Urine Nitrite NEG Urine Bilirubin NEG Urine Urobilinogen LESS THAN 2.0 MG/DL Urine Leukocyte Esterase LARGE Urine RBC 8 /hpf Urine WBC /hpf Urine WBC Clumps MANY Urine Triple Phosphate OCC /hpf Crystals Urine Bacteria MANY /hpf Urine Mucus FEW /lpf Microscopic Urinalysis Comment CULTURE INDICATED Ammonia 14 MCMOL/L Rapid Plasma Reagin NON-REACTIVE Test 04/15/17 07:06 White Blood Count 11.0 TH/MM3 Red Blood Count 3.67 MIL/MM3 Hemoglobin 12.3 GM/DL Hematocrit 35.9 % Mean Corpuscular Volume 97.9 FL Mean Corpuscular Hemoglobin 33.6 PG Mean Corpuscular Hemoglobin 34.4 % Concent Red Cell Distribution Width 13.7 % Platelet Count 184 TH/MM3 Mean Platelet Volume 9.5 FL Neutrophils (%) (Auto) 74.0 % Lymphocytes (%) (Auto) 11.7 % Monocytes (%) (Auto) 13.4 % Eosinophils (%) (Auto) 0.5 % Basophils (%) (Auto) 0.4 % Neutrophils # (Auto) 8.1 TH/MM3 Lymphocytes # (Auto) 1.3 TH/MM3 Monocytes # (Auto) 1.5 TH/MM3 Eosinophils # (Auto) 0.1 TH/MM3 Basophils # (Auto) 0.0 TH/MM3 CBC Comment DIFF FINAL Differential Comment Sodium Level 137 MEQ/L Potassium Level 3.9 MEQ/L Chloride Level 105 MEQ/L Carbon Dioxide Level 24.1 MEQ/L Anion Gap 8 MEQ/L Blood Urea Nitrogen 18 MG/DL Creatinine 0.73 MG/DL Estimat Glomerular Filtration 102 ML/MIN Rate Random Glucose 101 MG/DL Calcium Level 8.7 MG/DL Magnesium Level 2.0 MG/DL Imaging Last Impressions Head CT 04/13/172026 Signed Impressions: Service Date/Time: Thursday, April 13, 2017 20:39 - CONCLUSION: Cerebral atrophy and chronic ischemic small vessel vasculopathy. Guzman Sharp MD Chest X-Ray 04/13/172026 Signed Impressions: Service Date/Time: Thursday, April 13, 2017 20:26 - CONCLUSION: No acute disease. Guzman Sharp MD Objective Remarks General: NAD, Alert and oriented to self Chest: CTA Cardiac: Irregular Abd: +BS, soft ND/NT Ext: No edema A/P Problem List: (1) UTI (urinary tract infection) Status: Acute Plan: - Patient started on Rocephin - Urine culture with Gram Neg rods, awaiting final culture and sensitivities - Anticipate discharge to SNF once final cultures and sensitivities resulted. (2) Generalized weakness Status: Acute Plan: - Likely exacerbated by patient's urinary tract infection - PT recommending rehab at SNF (3) Atrial fibrillation Status: Chronic Plan: - Atenolol, pradaxa (4) HTN (hypertension) Status: Chronic Plan: - stable - metoprolol (5) Dementia Status: Acute Plan: - Patient follows with Dr. Salazar - Patient instructed by been awake to hold his galantamine for a week to see if that was causing his fatigue - Namenda (6) Diabetes mellitus type 2, diet-controlled Status: Chronic Plan: - Diet controlled (7) Esophageal stricture Status: Acute Plan: - s/p dilation - PPI Assessment and Plan Patient examined. Assessment and plan formulated with Jeanie Alonso PA-C. I agree with the above. dementia. gen weakness. uti. d/c to snf in AM Problem Qualifiers (1) UTI (urinary tract infection): Qualified Code: N30.01 - Acute cystitis with hematuria (2) Atrial fibrillation: Qualified Code: I48.2 - Chronic atrial fibrillation (3) HTN (hypertension): Qualified Code: I10 - Essential hypertension Jeanie Alonso Apr 15, 2017 11:01 Leonel Nicole MD Apr 15, 2017 21:50
[2017-04-15] MEDS: CIPROFLOXACIN 500 MG TAB PO SCH (20:08)
[2017-04-15] MEDS: ATORVASTATIN 40 MG TAB PO SCH (20:08)
[2017-04-16] VITALS (8 sets, daily range): BP systolic 110–133; BP diastolic 61–72; PULSE 67–90; RESP 18–20; TEMP 97.5–98.4; O2SAT 94–95
[2017-04-16] MEDS: PHENAZOPYRIDINE HCL 100 MG TAB PO SCH ×3 (00:23→17:47)
--- NOTE | 2017-04-16 10:37 | HHI.PR ---
Subjective Remarks Pt complains of more coughing today and is bringing up a lot of phlegm Pt feels this is more upper sinus congestion He is not eating much now reports that prior to admission he had an episode of coughing/choking with eating and is concerned about aspiration as he has had aspiration pneumonia in the past. Objective Vitals Vital Signs Date Time Temp Pulse Resp B/P Pulse Ox O2 Delivery O2 Flow Rate FiO2 04/16/17 07:10 98.4 89 18 133/65 94 04/16/17 02:19 82 04/15/17 19:03 98.4 83 18 119/84 94 04/15/17 16:00 97.9 107 20 144/79 95 04/15/17 12:00 99.0 87 18 119/68 94 Result Diagram: 04/15/1770504/15/17705 Other Results Laboratory Tests Test 04/15/17 07:06 White Blood Count 11.0 TH/MM3 Red Blood Count 3.67 MIL/MM3 Hemoglobin 12.3 GM/DL Hematocrit 35.9 % Mean Corpuscular Volume 97.9 FL Mean Corpuscular Hemoglobin 33.6 PG Mean Corpuscular Hemoglobin 34.4 % Concent Red Cell Distribution Width 13.7 % Platelet Count 184 TH/MM3 Mean Platelet Volume 9.5 FL Neutrophils (%) (Auto) 74.0 % Lymphocytes (%) (Auto) 11.7 % Monocytes (%) (Auto) 13.4 % Eosinophils (%) (Auto) 0.5 % Basophils (%) (Auto) 0.4 % Neutrophils # (Auto) 8.1 TH/MM3 Lymphocytes # (Auto) 1.3 TH/MM3 Monocytes # (Auto) 1.5 TH/MM3 Eosinophils # (Auto) 0.1 TH/MM3 Basophils # (Auto) 0.0 TH/MM3 CBC Comment DIFF FINAL Differential Comment Sodium Level 137 MEQ/L Potassium Level 3.9 MEQ/L Chloride Level 105 MEQ/L Carbon Dioxide Level 24.1 MEQ/L Anion Gap 8 MEQ/L Blood Urea Nitrogen 18 MG/DL Creatinine 0.73 MG/DL Estimat Glomerular Filtration 102 ML/MIN Rate Random Glucose 101 MG/DL Calcium Level 8.7 MG/DL Magnesium Level 2.0 MG/DL Imaging Last Impressions Head CT 04/13/172026 Signed Impressions: Service Date/Time: Thursday, April 13, 2017 20:39 - CONCLUSION: Cerebral atrophy and chronic ischemic small vessel vasculopathy. Guzman Sharp MD Chest X-Ray 04/13/172026 Signed Impressions: Service Date/Time: Thursday, April 13, 2017 20:26 - CONCLUSION: No acute disease. Guzman Sharp MD Objective Remarks General: NAD, Alert and oriented to self Chest: CTA Cardiac: Irregular Abd: +BS, soft ND/NT Ext: No edema A/P Problem List: (1) UTI (urinary tract infection) Status: Acute Plan: - Patient started on Rocephin - Urine culture growing out Proteus Mirabilis with sensitivity to Cipro - Antibiotics changed to Cipro on 04/15 - Anticipate discharge to SNF once final cultures and sensitivities resulted. (2) Cough Status: Acute Plan: - Pt with more coughing today and is bringing up a lot of phlegm today - Pt feels this is more upper sinus congestion - Denies any dysphagia and coughing with eating but his now reports that prior to admission he had an episode of coughing/choking with eating and is concerned about aspiration as he has had aspiration pneumonia in the past. - Check CXR now - Claritin (3) Generalized weakness Status: Acute Plan: - Likely exacerbated by patient's urinary tract infection - PT recommending rehab at SNF (4) Atrial fibrillation Status: Chronic Plan: - Atenolol, pradaxa (5) HTN (hypertension) Status: Chronic Plan: - stable - metoprolol (6) Dementia Status: Acute Plan: - Patient follows with Dr. Salazar - Patient instructed by been awake to hold his galantamine for a week to see if that was causing his fatigue - Namenda (7) Diabetes mellitus type 2, diet-controlled Status: Chronic Plan: - Diet controlled (8) Esophageal stricture Status: Acute Plan: - s/p dilation - PPI Assessment and Plan Patient examined. Assessment and plan formulated with Jeanie Alonso PA-C. I agree with the above. uti with AMS better. family concerned with cough. no pna on cxr. pt thinks it's post nasal gtt. check swallow eval. d/c to snf. Problem Qualifiers (1) UTI (urinary tract infection): Qualified Code: N30.01 - Acute cystitis with hematuria (2) Atrial fibrillation: Qualified Code: I48.2 - Chronic atrial fibrillation (3) HTN (hypertension): Qualified Code: I10 - Essential hypertension Jeanie Alonso Apr 16, 2017 10:37 Leonel Nicole MD Apr 16, 2017 15:31
[2017-04-16] MEDS: CIPROFLOXACIN 500 MG TAB PO SCH ×2 (11:04→22:01)
[2017-04-16] MEDS: CHOLECALCIFEROL (VIT D3) 1000 UNIT TAB PO SCH (11:04)
[2017-04-16] MEDS: MEMANTINE HCL 10 MG TAB PO SCH ×2 (11:04→22:01)
[2017-04-16] MEDS: ATENOLOL 25 MG TAB PO SCH (11:04)
[2017-04-16] MEDS: amLODIPine BESYLATE 5 MG TAB PO SCH ×2 (11:04→22:01)
[2017-04-16] MEDS: PANTOPRAZOLE SOD 40 MG DELAYED RELEASE TAB PO SCH ×2 (11:04→22:01)
[2017-04-16] MEDS: SODIUM CHLORIDE 0.9% FLUSH 10 ML FLUSH IV FLUSH SCH ×2 (11:05→22:01)
[2017-04-16] MEDS: DABIGATRAN ETEXILATE 150 MG CAP PO SCH ×2 (11:05→22:30)
[2017-04-16] MEDS: LORATADINE 10 MG TAB PO SCH (11:43)
--- NOTE | 2017-04-16 12:16 | RADRPT ---
EXAM DATE/TIME: 04/16/2017 11:33 [facility] COMPARISON: CHEST SINGLE AP, April 13, 2017, 20:26. INDICATIONS : Cough. MEDICAL HISTORY : Gastroesophageal reflux disease. Hypertension Myocardial infarction. Dementia. SURGICAL HISTORY : Appendectomy. Prostatectomy. TURP. ENCOUNTER: Subsequent ACUITY: 3 days PAIN SCORE: 0/10 LOCATION: Bilateral chest FINDINGS: A single view of the chest demonstrates the lungs to be hypoinflated with some minimal interstitial c hanges predominantly in the left base. There may be punctate granulomatous type calcifications in the left lower lung as well. Lungs are otherwise clear with no acute infiltrate. There is some blunting of the left costophrenic angle and therefore, a small effusion or pleural parenchymal scarring cannot be excluded. Accounting for low lung lines heart size is normal. Degenerative changes of the dorsal spine. Osseous structures are otherwise intact. CONCLUSION: 1. Minimal interstitial changes in the left lower lung field with no confluent infiltrate. 2. Blunting of the left costophrenic angle may represent pleural parenchymal scarring or a small effu zaki. 3. Old granulomatous disease. Heart size is normal. Kevin Arreaga MD on April 16, 2017 at 12:13 Board Certified Radiologist. This report was verified electronically.
[2017-04-16] MEDS: SODIUM CHLOR 0.9% 1000 ML INJ 1,000 ML IV SCH (17:47)
[2017-04-16] MEDS: ATORVASTATIN 40 MG TAB PO SCH (22:01)
[2017-04-17] MEDS: PHENAZOPYRIDINE HCL 100 MG TAB PO SCH ×3 (01:38→17:23)
[2017-04-17 04:00] VITALS: BP 134/78; PULSE 69; RESP 18; TEMP 97; O2SAT 96
[2017-04-17 08:00] VITALS: BP 128/76; PULSE 88; RESP 19; TEMP 97.7; O2SAT 95
[2017-04-17] MEDS: ATENOLOL 25 MG TAB PO SCH (08:54)
[2017-04-17] MEDS: PANTOPRAZOLE SOD 40 MG DELAYED RELEASE TAB PO SCH ×2 (08:54→20:53)
[2017-04-17] MEDS: DABIGATRAN ETEXILATE 150 MG CAP PO SCH ×2 (08:55→20:53)
[2017-04-17] MEDS: MEMANTINE HCL 10 MG TAB PO SCH ×2 (08:56→20:53)
[2017-04-17] MEDS: LORATADINE 10 MG TAB PO SCH (08:56)
[2017-04-17] MEDS: CIPROFLOXACIN 500 MG TAB PO SCH ×2 (08:57→20:53)
[2017-04-17] MEDS: CHOLECALCIFEROL (VIT D3) 1000 UNIT TAB PO SCH (08:57)
[2017-04-17] MEDS: amLODIPine BESYLATE 5 MG TAB PO SCH ×2 (08:58→20:53)
[2017-04-17] MEDS: SODIUM CHLORIDE 0.9% FLUSH 10 ML FLUSH IV FLUSH SCH ×2 (08:58→20:55)
--- NOTE | 2017-04-17 10:42 | HHI.PR ---
Subjective Remarks pt building alot of oral secretions. not obviously post nasal foamy and alot of cough. Objective Vitals alot of foamy secretion in back of throat. heart reg lung course upper airway sounds. clear with cough abd s/nt ext no edema Vital Signs Date Time Temp Pulse Resp B/P Pulse Ox O2 Delivery O2 Flow Rate FiO2 04/17/17 08:00 97.7 88 19 128/76 95 04/17/17 04:00 97.0 69 18 134/78 96 04/16/17 22:00 97.5 67 20 110/72 95 04/16/17 15:30 86 04/16/17 15:14 98.0 90 19 123/65 94 04/16/17 12:15 84 04/16/17 12:04 98.1 86 19 114/61 95 04/16/17 04/16/17 04/17/17 15:00 23:00 07:00 Intake Total 720 ml Balance 720 ml Intake Oral 720 ml # Voids 1 4 # Bowel Movements 3 Result Diagram: 04/15/1770504/15/17 07 Imaging Last Impressions Head CT 04/13/172026 Signed Impressions: Service Date/Time: Thursday, April 13, 2017 20:39 - CONCLUSION: Cerebral atrophy and chronic ischemic small vessel vasculopathy. Guzman Sharp MD Chest X-Ray 04/13/172026 Signed Impressions: Service Date/Time: Thursday, April 13, 2017 20:26 - CONCLUSION: No acute disease. Guzman Sharp MD A/P Problem List: (1) Dysphagia Status: Acute Plan: Pt has hx aspiration, esophageal stricture and dilation now with alot of post pharynx secretions. cough and aspiration. speech and barium swallow ordered. will ask his GI doctor to evaluate as he seems to have trouble handling his own secretion even w/out eating..high risk of aspiration. (2) UTI (urinary tract infection) Status: Acute Plan: - Patient started on Rocephin - Urine culture growing out Proteus Mirabilis with sensitivity to Cipro - Antibiotics changed to Cipro on 04/15 (3) Esophageal stricture Status: Chronic Plan: - s/p dilation - PPI (4) Generalized weakness Status: Acute Plan: - Likely exacerbated by patient's urinary tract infection - PT recommending rehab at SNF (5) Atrial fibrillation Status: Chronic Plan: - Atenolol, pradaxa (6) HTN (hypertension) Status: Chronic Plan: - stable - metoprolol (7) Dementia Status: Chronic Plan: - Patient follows with Dr. Salazar - Patient instructed by been awake to hold his galantamine for a week to see if that was causing his fatigue - Namenda (8) Diabetes mellitus type 2, diet-controlled Status: Chronic Plan: - Diet controlled Problem Qualifiers (1) UTI (urinary tract infection): Qualified Code: N30.01 - Acute cystitis with hematuria (2) Atrial fibrillation: Qualified Code: I48.2 - Chronic atrial fibrillation (3) HTN (hypertension): Qualified Code: I10 - Essential hypertension Leonel Nicole MD Apr 17, 2017 10:42
--- NOTE | 2017-04-17 10:53 | RADRPT ---
EXAM DATE/TIME: 04/17/2017 15:53 [facility] COMPARISON: No previous studies available for comparison. INDICATIONS : Dysphagial; coughing while eating. Possible aspiration. FLUORO TIME: 1.1 minutes IMAGE COUNT: 0 CONTRAST: Dose as prescribed by speech pathologist. MEDICAL HISTORY : Gastroesophageal reflux disease. Hypertension Myocardial infarction. Dementia. SURGICAL HISTORY : None. ENCOUNTER: Initial ACUITY: 2 weeks PAIN SCORE: 0/10 LOCATION: Esophagus. FINDINGS: A modified barium swallow was performed with Speech Pathology. The patient was given barium, applesa uce thick barium and barium coated cracker. There is no penetration of the supraglottic larynx or tr acheal aspiration. Minimal pooling occurs within the paired vallecula and piriform sinuses. The ora l phase is normal. CONCLUSION: 1. No penetration of the supraglottic larynx or tracheal aspiration. 2. Minimal pooling within the paired vallecula and piriform sinuses. Jack Blum MD on April 17, 2017 at 10:38 Board Certified Radiologist. This report was verified electronically.
[2017-04-17 12:16] VITALS: BP 125/80; PULSE 85; RESP 18; TEMP 98.2; O2SAT 96
[2017-04-17] MEDS: SODIUM CHLOR 0.9% 1000 ML INJ 1,000 ML IV SCH (12:45)
[2017-04-17 16:15] VITALS: BP 137/80; PULSE 81; RESP 18; TEMP 97.9; O2SAT 94
[2017-04-17 20:00] VITALS: BP 115/76; PULSE 89; RESP 18; TEMP 97.9; O2SAT 96
[2017-04-17] MEDS: ATORVASTATIN 40 MG TAB PO SCH (20:53)
[2017-04-17 21:00] VITALS: PULSE 65
[2017-04-18] VITALS (7 sets, daily range): BP systolic 105–148; BP diastolic 73–90; PULSE 79–96; RESP 17–20; TEMP 97.4–98.2; O2SAT 93–96
[2017-04-18] MEDS: PHENAZOPYRIDINE HCL 100 MG TAB PO SCH ×4 (01:30→23:18)
[2017-04-18] MEDS: LORATADINE 10 MG TAB PO SCH (09:49)
[2017-04-18] MEDS: MEMANTINE HCL 10 MG TAB PO SCH ×2 (09:49→23:18)
[2017-04-18] MEDS: amLODIPine BESYLATE 5 MG TAB PO SCH ×2 (09:49→23:23)
[2017-04-18] MEDS: DABIGATRAN ETEXILATE 150 MG CAP PO SCH (09:49)
[2017-04-18] MEDS: CHOLECALCIFEROL (VIT D3) 1000 UNIT TAB PO SCH (09:49)
[2017-04-18] MEDS: CIPROFLOXACIN 500 MG TAB PO SCH ×2 (09:49→23:18)
[2017-04-18] MEDS: ATENOLOL 25 MG TAB PO SCH (09:49)
[2017-04-18] MEDS: PANTOPRAZOLE SOD 40 MG DELAYED RELEASE TAB PO SCH ×2 (09:49→23:18)
[2017-04-18] MEDS: SODIUM CHLORIDE 0.9% FLUSH 10 ML FLUSH IV FLUSH SCH ×2 (09:53→21:00)
[2017-04-18] MEDS: SODIUM CHLOR 0.9% 1000 ML INJ 1,000 ML IV SCH (09:54)
--- NOTE | 2017-04-18 11:06 | HHI.PR ---
Subjective Remarks eager for d/c. want gi eval Objective Vitals heart reg lung course bs abd s/nt/bs ext no edema Vital Signs Date Time Temp Pulse Resp B/P Pulse Ox O2 Delivery O2 Flow Rate FiO2 04/18/17 08:21 97.8 90 18 133/88 95 04/18/17 04:00 98.1 88 17 148/90 93 04/18/17 00:00 98.2 89 18 143/80 96 04/17/17 21:00 65 04/17/17 20:00 97.9 89 18 115/76 96 04/17/17 16:15 97.9 81 18 137/80 94 04/17/17 12:16 98.2 85 18 125/80 96 04/17/17 04/17/17 04/18/17 14:59 22:59 06:59 Output Total 100 ml 300 ml Balance -100 ml -300 ml Output Urine Total 100 ml 300 ml # Voids 2 # Bowel Movements 0 0 Result Diagram: 04/15/17 0706 04/15/17 07 Imaging Last Impressions Head CT 04/13/172026 Signed Impressions: Service Date/Time: Thursday, April 13, 2017 20:39 - CONCLUSION: Cerebral atrophy and chronic ischemic small vessel vasculopathy. Guzman Sharp MD Chest X-Ray 04/13/172026 Signed Impressions: Service Date/Time: Thursday, April 13, 2017 20:26 - CONCLUSION: No acute disease. Guzman Sharp MD A/P Problem List: (1) Dysphagia Status: Acute Plan: Pt has hx aspiration, esophageal stricture and dilation now with alot of post pharynx secretions. cough and aspiration. speech and barium swallow noted will ask his GI doctor to evaluate as he seems to have trouble handling his own secretion even w/out eating..high risk of aspiration. says this is how he presented last time with obstruction in esophagus. ?trial levsin (2) UTI (urinary tract infection) Status: Acute Plan: - Patient started on Rocephin - Urine culture growing out Proteus Mirabilis with sensitivity to Cipro - Antibiotics changed to Cipro on 04/15 (3) Esophageal stricture Status: Chronic Plan: - s/p dilation - PPI (4) Generalized weakness Status: Acute Plan: - Likely exacerbated by patient's urinary tract infection - PT recommending rehab at SNF (5) Atrial fibrillation Status: Chronic Plan: - Atenolol, pradaxa (6) HTN (hypertension) Status: Chronic Plan: - stable - metoprolol (7) Dementia Status: Chronic Plan: - Patient follows with Dr. Salazar - Patient instructed by been awake to hold his galantamine for a week to see if that was causing his fatigue - Namenda (8) Diabetes mellitus type 2, diet-controlled Status: Chronic Plan: - Diet controlled Problem Qualifiers (1) UTI (urinary tract infection): Qualified Code: N30.01 - Acute cystitis with hematuria (2) Atrial fibrillation: Qualified Code: I48.2 - Chronic atrial fibrillation (3) HTN (hypertension): Qualified Code: I10 - Essential hypertension Leonel Nicole MD Apr 18, 2017 11:06
--- NOTE | 2017-04-18 17:03 | PD.CONS ---
HPI History of Present Illness This is a 86 year old male with hx esophageal strictures, dementia, aspiration PNA, AF on pradaxa who presented to the hospital with weakness. He was found to have UTI. He has been having trouble swallowing, failed a swallow eval. Subsequent swallow eval was better with recommendation for thin liquids and soft diet. MBS showed no aspiration and minimal pooling. His reports that he is having foamy saliva and seems to have difficulty swallowing hsi secretions. He has hx intermittent dysphagia and food getting stuck, has had mult EGDs and dilatations, retrieval food boluses. He was seen and spirated during MBS and got PNA. His last EGD with dilatation was 01/[address] Campos with recommendation to repeat in 2months. (Catherine Traylor) PFSH Past Medical History AF dementia esohpageal strictures HTN aspiration PNA Past Surgical History appendectomy cataract surgery - left eye repiar detached retina TURP right knee replacement (Catherine Traylor) Coded Allergies: Sulfa (Verified Allergy, Severe, MIGRAINES, RED EYES, 04/13/17) Family History non contributory Social History no ETOH, former smoker, no illicit drug use (Catherine Traylor) Review of Systems ROS non contributory (Catherine Traylor) GI Exam Vitals I&O Vital Signs Date Time Temp Pulse Resp B/P Pulse Ox O2 Delivery O2 Flow Rate FiO2 04/18/17 16:25 97.5 79 20 117/73 94 04/18/17 11:58 97.4 96 18 105/80 96 04/18/17 08:21 97.8 90 18 133/88 95 04/18/17 04:00 98.1 88 17 148/90 93 04/18/17 00:00 98.2 89 18 143/80 96 04/17/17 21:00 65 04/17/17 20:00 97.9 89 18 115/76 96 I/O 04/17/17 04/17/17 04/17/17 04/18/17 04/18/17 04/18/17 07:00 15:00 23:00 07:00 15:00 23:00 Output Total 100 ml 300 ml Balance -100 ml -300 ml Output Urine Total 100 ml 300 ml # Voids 4 2 # Bowel Movements 3 0 0 Imaging Last Impressions Modified Barium Swallow 04/17/17 1553 Signed Impressions: Service Date/Time: Monday, April 17, 2017 15:53 - CONCLUSION: 1. No penetration of the supraglottic larynx or tracheal aspiration. 2. Minimal pooling within the paired vallecula and piriform sinuses. Jack Blum MD Chest X-Ray 04/16/17 0000 Signed Impressions: Service Date/Time: Sunday, April 16, 2017 11:33 - CONCLUSION: 1. Minimal interstitial changes in the left lower lung field with no confluent infiltrate. 2. Blunting of the left costophrenic angle may represent pleural parenchymal scarring or a small effusion. 3. Old granulomatous disease. Heart size is normal. Kevin Arreaga MD Head CT 04/13/172026 Signed Impressions: Service Date/Time: Thursday, April 13, 2017 20:39 - CONCLUSION: Cerebral atrophy and chronic ischemic small vessel vasculopathy. Guzman Sharp MD Laboratory Date/Time Procedure Status Source Growth 04/13/17 22:09 Urine Culture - Final Complete Urine Random Urine Proteus Mirabilis 04/13/17 21:38 Aerobic Blood Culture - Final Complete Blood Peripheral NO GROWTH IN 5 DAYS 04/13/17 21:38 Anaerobic Blood Culture - Final Complete Blood Peripheral NO GROWTH IN 5 DAYS Physical Examination HEENT: PERRL; normocephalic; atraumatic; no jaundice. CHEST: CTA CARDIAC: RRR ABDOMEN: Soft, nondistended, nontender; no hepatosplenomegaly; bowel sounds are present in all four quadrants. EXTREMITIES: No clubbing, cyanosis, or edema. SKIN: Normal; no rash; no jaundice. FIELD CROP II FARMWORKER: alert (Catherine Traylor HOG COOLER) Assessment and Plan Plan ASSESSMENT - dysphagia - probable stricture. hx strictures, repeated EGD & esophageal dilatation. hx aspiration PNA after MBS in 07/2016. failed initial swallow eval this admission and 2nd one better with recommendation for soft diet and thin liquids. MBS did not show aspiration. Seems to have difficulty swallowing secretions. will need to stop pradaxa PLAN - EGD with dilatation saturday - obtain consents - NPO after midnight saturday - hold pradaxa - soft diet - supportive care - This pt seen by myself and Dr Celis and this note was written on his behalf (Catherine Traylor) Physician Comments Patient seen and examined Agree with above Continue with current supportive care Monitor labs We'll need to stop the Pradaxa and we'll plan on an EGD with dilation to be done on Saturday (Petar Celis MD) Catherine Traylor Apr 18, 2017 17:03 Petar Celis MD Apr 18, 2017 21:13
[2017-04-18] MEDS: ACETAMINOPHEN 325 MG TAB PO PRN (23:17)
[2017-04-18] MEDS: ATORVASTATIN 40 MG TAB PO SCH (23:18)
[2017-04-19] VITALS (8 sets, daily range): BP systolic 114–130; BP diastolic 68–82; PULSE 73–104; RESP 16–20; TEMP 96.9–97.9; O2SAT 93–96
[2017-04-19] MEDS: ATENOLOL 25 MG TAB PO SCH (08:40)
[2017-04-19] MEDS: amLODIPine BESYLATE 5 MG TAB PO SCH ×2 (08:40→21:51)
[2017-04-19] MEDS: CHOLECALCIFEROL (VIT D3) 1000 UNIT TAB PO SCH (08:40)
[2017-04-19] MEDS: PHENAZOPYRIDINE HCL 100 MG TAB PO SCH ×2 (08:41→16:36)
[2017-04-19] MEDS: MEMANTINE HCL 10 MG TAB PO SCH ×2 (08:41→21:51)
[2017-04-19] MEDS: PANTOPRAZOLE SOD 40 MG DELAYED RELEASE TAB PO SCH ×2 (08:41→21:51)
[2017-04-19] MEDS: CIPROFLOXACIN 500 MG TAB PO SCH ×2 (08:41→21:51)
[2017-04-19] MEDS: LORATADINE 10 MG TAB PO SCH (08:41)
[2017-04-19] MEDS: SODIUM CHLORIDE 0.9% FLUSH 10 ML FLUSH IV FLUSH SCH ×2 (08:42→21:00)
[2017-04-19] MEDS: ACETAMINOPHEN 325 MG TAB PO PRN (10:41)
[2017-04-19] MEDS ORDERED: methylPREDNISolone SOD SUCC 125 MG/2 ML VIAL IV PUSH ONE (12:15)
--- NOTE | 2017-04-19 14:20 | HHI.PR ---
Subjective Remarks left knee swollen and left hip pain. Objective Vitals haert reg lung cta abd s/nt ext left knee effusion no left hip tenderness. FROM ok. Vital Signs Date Time Temp Pulse Resp B/P Pulse Ox O2 Delivery O2 Flow Rate FiO2 04/19/17 12:00 97.7 88 16 114/71 96 04/19/17 08:00 97.7 88 18 116/77 96 04/19/17 07:00 91 04/19/17 04:00 97.9 88 16 115/79 96 04/19/17 00:04 97.9 95 18 121/78 94 04/18/17 23:18 88 04/18/17 21:27 97.7 88 18 135/76 93 04/18/17 16:25 97.5 79 20 117/73 94 04/18/17 04/18/17 04/19/17 14:59 22:59 06:59 Intake Total 240 ml Output Total 150 ml Balance 240 ml -150 ml Intake Oral 240 ml Output Urine Total 150 ml # Voids 3 1 # Bowel Movements 1 0 Result Diagram: 04/15/17 0706 04/15/17 0706 Imaging Last Impressions Head CT 04/13/172026 Signed Impressions: Service Date/Time: Thursday, April 13, 2017 20:39 - CONCLUSION: Cerebral atrophy and chronic ischemic small vessel vasculopathy. Guzman Sharp MD Chest X-Ray 04/13/172026 Signed Impressions: Service Date/Time: Thursday, April 13, 2017 20:26 - CONCLUSION: No acute disease. Guzman Sharp MD A/P Problem List: (1) Dysphagia Status: Acute Plan: Pt has hx aspiration, esophageal stricture and dilation now with alot of post pharynx secretions. cough and aspiration. speech and barium swallow noted will ask his GI doctor to evaluate as he seems to have trouble handling his own secretion even w/out eating..high risk of aspiration. says this is how he presented last time with obstruction in esophagus. ?trial levsin hold anticoagulation and plan for egd/dilation Saturday. (2) Knee effusion, left Status: Acute Plan: Pt c/o left knee effusion probably reactive from OA steroid trial xray left knee and hip for c/o pain (3) UTI (urinary tract infection) Status: Acute Plan: - Patient started on Rocephin - Urine culture growing out Proteus Mirabilis with sensitivity to Cipro - Antibiotics changed to Cipro on 04/15 (4) Esophageal stricture Status: Chronic Plan: - s/p dilation - PPI (5) Generalized weakness Status: Acute Plan: - Likely exacerbated by patient's urinary tract infection - PT recommending rehab at SNF (6) Atrial fibrillation Status: Chronic Plan: - Atenolol, pradaxa (7) HTN (hypertension) Status: Chronic Plan: - stable - metoprolol (8) Dementia Status: Chronic Plan: - Patient follows with Dr. Salazar - Patient instructed by been awake to hold his galantamine for a week to see if that was causing his fatigue - Namenda (9) Diabetes mellitus type 2, diet-controlled Status: Chronic Plan: - Diet controlled Problem Qualifiers (1) UTI (urinary tract infection): Qualified Code: N30.01 - Acute cystitis with hematuria (2) Atrial fibrillation: Qualified Code: I48.2 - Chronic atrial fibrillation (3) HTN (hypertension): Qualified Code: I10 - Essential hypertension Leonel Nicole MD Apr 19, 2017 14:20
--- NOTE | 2017-04-19 14:50 | RADRPT ---
EXAM DATE/TIME: 04/19/2017 14:09 [facility] COMPARISON: No previous studies available for comparison. INDICATIONS : Left hip pain. MEDICAL HISTORY : Hypertension. Arthritis. Myocardial infarction. SURGICAL HISTORY : Total knee replacement, left. ENCOUNTER: Initial ACUITY: 1 week PAIN SCORE: 4/10 LOCATION: Left knee, in the joint. FINDINGS: No definite fractures, or dislocations are identified. No definite lytic or sclerotic lesion is seen . Slight osteopenia is seen. The joint spaces are well maintained. Chronic atherosclerotic calcifica tions are seen involving the visualized arteries. CONCLUSION: Slight osteopenia. Ariana Fisher MD on April 19, 2017 at 14:48 Board Certified Radiologist. This report was verified electronically.
--- NOTE | 2017-04-19 14:51 | RADRPT ---
EXAM DATE/TIME: 04/19/2017 14:12 [facility] COMPARISON: No previous studies available for comparison. INDICATIONS : Left knee pain. MEDICAL HISTORY : Hypertension. Arthritis. Myocardial infarction. SURGICAL HISTORY : Total knee replacement, left. ENCOUNTER: Initial ACUITY: 1 week PAIN SCORE: 1/10 LOCATION: Left knee. FINDINGS: No definite fractures, or dislocations are identified. No definite lytic or sclerotic lesion is seen . Slight osteopenia is seen. There is chondrocalcinosis and slight tricompartment osteoarthritis. La rge joint effusion is seen. Chronic atherosclerotic calcifications are seen involving the visualized arteries. CONCLUSION: Joint effusion, chronic changes and no definite fracture. Ariana Fisher MD on April 19, 2017 at 14:49 Board Certified Radiologist. This report was verified electronically.
--- NOTE | 2017-04-19 16:44 | HHI.GIFU ---
Subjective Remarks Per pt eating better today. Pt feels fine. (Catherine Traylor ROLL EDGE MACHINE OPERATOR) Objective Vitals I&O Vital Signs Date Time Temp Pulse Resp B/P Pulse Ox O2 Delivery O2 Flow Rate FiO2 04/19/17 15:52 96.9 104 18 130/82 94 04/19/17 12:00 97.7 88 16 114/71 96 04/19/17 08:00 97.7 88 18 116/77 96 04/19/17 07:00 91 04/19/17 04:00 97.9 88 16 115/79 96 04/19/17 00:04 97.9 95 18 121/78 94 04/18/17 23:18 88 04/18/17 21:27 97.7 88 18 135/76 93 I/O 04/18/17 04/18/17 04/18/17 04/19/17 04/19/17 04/19/17 07:00 15:00 23:00 07:00 15:00 23:00 Intake Total 240 ml 480 ml Output Total 150 ml 500 ml Balance 240 ml -150 ml -20 ml Intake Oral 240 ml 480 ml Output Urine Total 150 ml 500 ml # Voids 2 3 1 # Bowel Movements 0 1 0 0 Imaging Last Impressions Knee X-Ray 04/19/17 0000 Signed Impressions: Service Date/Time: Wednesday, April 19, 2017 14:12 - CONCLUSION: Joint effusion, chronic changes and no definite fracture. Ariana Fisher MD Hip and Pelvis X-Ray 04/19/17 0000 Signed Impressions: Service Date/Time: Wednesday, April 19, 2017 14:09 - CONCLUSION: Slight osteopenia. Ariana Fisher MD Modified Barium Swallow 04/17/17 1553 Signed Impressions: Service Date/Time: Monday, April 17, 2017 15:53 - CONCLUSION: 1. No penetration of the supraglottic larynx or tracheal aspiration. 2. Minimal pooling within the paired vallecula and piriform sinuses. Jack Blum MD Chest X-Ray 04/16/17 0000 Signed Impressions: Service Date/Time: Sunday, April 16, 2017 11:33 - CONCLUSION: 1. Minimal interstitial changes in the left lower lung field with no confluent infiltrate. 2. Blunting of the left costophrenic angle may represent pleural parenchymal scarring or a small effusion. 3. Old granulomatous disease. Heart size is normal. Kevin Arreaga MD Head CT 04/13/172026 Signed Impressions: Service Date/Time: Thursday, April 13, 2017 20:39 - CONCLUSION: Cerebral atrophy and chronic ischemic small vessel vasculopathy. Guzman Sharp MD Physical Exam HEENT: PERRL; normocephalic; atraumatic; no jaundice. CHEST: CTA CARDIAC: RRR ABDOMEN: Soft, nondistended, nontender; no hepatosplenomegaly; bowel sounds are present in all four quadrants. EXTREMITIES: No clubbing, cyanosis, left knee swollen SKIN: Normal; no rash; no jaundice. COMPUTER AIDED DESIGN DRAFTER: alert (Catherine Traylor) Assessment and Plan Plan ASSESSMENT - dysphagia - probable stricture. hx strictures, repeated EGD & esophageal dilatation. hx aspiration PNA after MBS in 07/2016. failed initial swallow eval this admission and 2nd one better with recommendation for soft diet and thin liquids. MBS did not show aspiration. Seems to have difficulty swallowing secretions. pradaxa held PLAN - EGD with dilatation saturday - NPO after midnight saturday - holding pradaxa - soft diet - supportive care - This pt seen by myself and Dr Celis and this note was written on his behalf (Catherine Traylor) Physician Comments Patient seen and examined Agree with above Continue with current supportive care Monitor labs (Petar Celis MD) Catherine Traylor Apr 19, 2017 16:43 Petar Celis MD Apr 19, 2017 22:18
[2017-04-19] MEDS: ATORVASTATIN 40 MG TAB PO SCH (21:51)
[2017-04-19] MEDS: methylPREDNISolone SOD SUCC 125 MG/2 ML VIAL IV PUSH SCH (21:52)
[2017-04-20] VITALS (7 sets, daily range): BP systolic 97–125; BP diastolic 65–80; PULSE 81–99; RESP 17–22; TEMP 97.3–98.1; O2SAT 92–96
[2017-04-20] MEDS: PHENAZOPYRIDINE HCL 100 MG TAB PO SCH ×4 (01:49→22:49)
[2017-04-20] MEDS: amLODIPine BESYLATE 5 MG TAB PO SCH ×3 (09:31→22:49)
[2017-04-20] MEDS: CIPROFLOXACIN 500 MG TAB PO SCH ×2 (09:32→22:49)
[2017-04-20] MEDS: PANTOPRAZOLE SOD 40 MG DELAYED RELEASE TAB PO SCH ×2 (09:32→22:49)
[2017-04-20] MEDS: methylPREDNISolone SOD SUCC 125 MG/2 ML VIAL IV PUSH SCH ×2 (09:32→22:50)
[2017-04-20] MEDS: CHOLECALCIFEROL (VIT D3) 1000 UNIT TAB PO SCH (09:32)
[2017-04-20] MEDS: MEMANTINE HCL 10 MG TAB PO SCH ×2 (09:32→22:49)
[2017-04-20] MEDS: LORATADINE 10 MG TAB PO SCH (09:32)
[2017-04-20] MEDS: SODIUM CHLORIDE 0.9% FLUSH 10 ML FLUSH IV FLUSH SCH ×2 (09:33→22:50)
[2017-04-20] MEDS: ATENOLOL 25 MG TAB PO SCH (09:33)
--- NOTE | 2017-04-20 10:08 | HHI.PR ---
Subjective Remarks left knee and hip feel better says he was oob last night. left knee less swollen Objective Vitals heart reg lung cta abd s/nt ext left knee effusion smaller able to actively flex knee and hip on his own without any sig. pain. knee not hot or red. Vital Signs Date Time Temp Pulse Resp B/P Pulse Ox O2 Delivery O2 Flow Rate FiO2 04/20/17 08:00 97.6 99 20 117/69 95 04/20/17 04:00 97.8 92 20 97/65 95 04/20/17 00:00 98.1 90 19 125/80 92 04/19/17 21:51 88 04/19/17 20:00 97.4 73 20 126/68 93 04/19/17 15:52 96.9 104 18 130/82 94 04/19/17 12:00 97.7 88 16 114/71 96 04/19/17 04/19/17 04/20/17 14:59 22:59 06:59 Intake Total 480 ml 240 ml Output Total 500 ml Balance -20 ml 240 ml Intake Oral 480 ml 240 ml Output Urine Total 500 ml # Voids 1 1 # Bowel Movements 0 2 Imaging Last Impressions Head CT 04/13/172026 Signed Impressions: Service Date/Time: Thursday, April 13, 2017 20:39 - CONCLUSION: Cerebral atrophy and chronic ischemic small vessel vasculopathy. Guzman Sharp MD Chest X-Ray 04/13/172026 Signed Impressions: Service Date/Time: Thursday, April 13, 2017 20:26 - CONCLUSION: No acute disease. Guzman Sharp MD A/P Problem List: (1) Dysphagia Status: Acute Plan: Pt has hx aspiration, esophageal stricture and dilation now with alot of post pharynx secretions. cough and aspiration. speech and barium swallow noted GI doctor to evaluate as he seems to have trouble handling his own secretion even w/out eating..high risk of aspiration. says this is how he presented last time with obstruction in esophagus. ?trial levsin hold anticoagulation and plan for egd/dilation Saturday. (2) Knee effusion, left Status: Acute Plan: Pt c/o left knee effusion probably reactive from OA but given chondocalcinosis on xray it could be pseudogout steroid trial today the left knee effusion smaller and no pain left hip. cont current rx...if not completely better consider colchicine or naprosyn (3) UTI (urinary tract infection) Status: Acute Plan: - Patient started on Rocephin - Urine culture growing out Proteus Mirabilis with sensitivity to Cipro - Antibiotics changed to Cipro on 04/15 (4) Esophageal stricture Status: Chronic Plan: - s/p dilation - PPI (5) Generalized weakness Status: Acute Plan: - Likely exacerbated by patient's urinary tract infection - PT recommending rehab at SNF (6) Atrial fibrillation Status: Chronic Plan: - Atenolol, pradaxa (7) HTN (hypertension) Status: Chronic Plan: - stable - metoprolol (8) Dementia Status: Chronic Plan: - Patient follows with Dr. Salazar - Patient instructed by been awake to hold his galantamine for a week to see if that was causing his fatigue - Namenda (9) Diabetes mellitus type 2, diet-controlled Status: Chronic Plan: - Diet controlled Problem Qualifiers (1) UTI (urinary tract infection): Qualified Code: N30.01 - Acute cystitis with hematuria (2) Atrial fibrillation: Qualified Code: I48.2 - Chronic atrial fibrillation (3) HTN (hypertension): Qualified Code: I10 - Essential hypertension Leonel Nicole MD Apr 20, 2017 10:08
--- NOTE | 2017-04-20 21:06 | HHI.GIFU ---
Subjective Remarks Comfortable in bed no new complaints daughter at bedside Objective Vitals I&O Vital Signs Date Time Temp Pulse Resp B/P Pulse Ox O2 Delivery O2 Flow Rate FiO2 04/20/17 16:00 97.7 81 20 113/74 94 04/20/17 12:00 97.6 93 20 107/67 96 04/20/17 08:00 97.6 99 20 117/69 95 04/20/17 04:00 97.8 92 20 97/65 95 04/20/17 00:00 98.1 90 19 125/80 92 04/19/17 21:51 88 I/O 04/19/17 04/19/17 04/19/17 04/20/17 04/20/17 04/20/17 07:00 15:00 23:00 07:00 15:00 23:00 Intake Total 480 ml 240 ml 480 ml Output Total 150 ml 500 ml Balance -150 ml -20 ml 240 ml 480 ml Intake Oral 480 ml 240 ml 480 ml Output Urine Total 150 ml 500 ml # Voids 1 1 1 3 # Bowel Movements 0 0 2 0 Imaging Last Impressions Knee X-Ray 04/19/17 0000 Signed Impressions: Service Date/Time: Wednesday, April 19, 2017 14:12 - CONCLUSION: Joint effusion, chronic changes and no definite fracture. Ariana Fisher MD Hip and Pelvis X-Ray 04/19/17 0000 Signed Impressions: Service Date/Time: Wednesday, April 19, 2017 14:09 - CONCLUSION: Slight osteopenia. Ariana Fisher MD Modified Barium Swallow 04/17/17 1553 Signed Impressions: Service Date/Time: Monday, April 17, 2017 15:53 - CONCLUSION: 1. No penetration of the supraglottic larynx or tracheal aspiration. 2. Minimal pooling within the paired vallecula and piriform sinuses. Jack Blum MD Chest X-Ray 04/16/17 0000 Signed Impressions: Service Date/Time: Sunday, April 16, 2017 11:33 - CONCLUSION: 1. Minimal interstitial changes in the left lower lung field with no confluent infiltrate. 2. Blunting of the left costophrenic angle may represent pleural parenchymal scarring or a small effusion. 3. Old granulomatous disease. Heart size is normal. Kevin Arreaga MD Head CT 04/13/172026 Signed Impressions: Service Date/Time: Saturday, April 13, 2017 20:39 - CONCLUSION: Cerebral atrophy and chronic ischemic small vessel vasculopathy. Guzman Sharp MD Physical Exam HEENT: PERRL; normocephalic; atraumatic; no jaundice. CHEST: CTA CARDIAC: RRR ABDOMEN: Soft, nondistended, nontender; no hepatosplenomegaly; bowel sounds are present in all four quadrants. EXTREMITIES: No clubbing, cyanosis, left knee swollen SKIN: Normal; no rash; no jaundice. DISABILITY CASE MANAGER: alert Assessment and Plan Plan ASSESSMENT - dysphagia - probable stricture. hx strictures, repeated EGD & esophageal dilatation. hx aspiration PNA after MBS in 07/2016. failed initial swallow eval this admission and 2nd one better with recommendation for soft diet and thin liquids. MBS did not show aspiration. Seems to have difficulty swallowing secretions. pradaxa held PLAN - EGD with dilatation saturday - NPO after midnight saturday - holding pradaxa - soft diet - supportive care Petar Celis MD Apr 20, 2017 21:06
[2017-04-20] MEDS: ATORVASTATIN 40 MG TAB PO SCH (22:49)
[2017-04-21] VITALS: BP 122/67; PULSE 90; RESP 18; TEMP 97.7; O2SAT 94
[2017-04-21 06:32] VITALS: BP 139/68; PULSE 96; RESP 18; TEMP 97.4; O2SAT 93
[2017-04-21 08:00] VITALS: BP 121/79; PULSE 97; RESP 19; TEMP 97.4; O2SAT 91
[2017-04-21] MEDS: amLODIPine BESYLATE 5 MG TAB PO SCH ×2 (08:39→21:18)
[2017-04-21] MEDS: MEMANTINE HCL 10 MG TAB PO SCH ×2 (08:39→21:18)
[2017-04-21] MEDS: CIPROFLOXACIN 500 MG TAB PO SCH ×2 (08:39→21:17)
[2017-04-21] MEDS: PANTOPRAZOLE SOD 40 MG DELAYED RELEASE TAB PO SCH ×2 (08:39→21:18)
[2017-04-21] MEDS: CHOLECALCIFEROL (VIT D3) 1000 UNIT TAB PO SCH (08:39)
[2017-04-21] MEDS: ATENOLOL 25 MG TAB PO SCH (08:39)
[2017-04-21] MEDS: PHENAZOPYRIDINE HCL 100 MG TAB PO SCH (08:39)
[2017-04-21] MEDS: LORATADINE 10 MG TAB PO SCH (08:39)
[2017-04-21] MEDS: methylPREDNISolone SOD SUCC 125 MG/2 ML VIAL IV PUSH SCH ×2 (08:40→21:17)
[2017-04-21] MEDS: SODIUM CHLORIDE 0.9% FLUSH 10 ML FLUSH IV FLUSH SCH ×2 (08:40→21:25)
[2017-04-21] MEDS ORDERED: SIMETHICONE 125 MG CHEWABLE TAB PO ONE (09:00)
--- NOTE | 2017-04-21 09:02 | HHI.PR ---
Subjective Remarks some hiccups overnight belching/burping. ambulating ok on the hip/knee Objective Vitals heart reg lung cta abd s/nt ext left knee effusion smaller able to actively flex/extend at the left hip/knee w/out pain. Vital Signs Date Time Temp Pulse Resp B/P Pulse Ox O2 Delivery O2 Flow Rate FiO2 04/21/17 08:00 97.4 97 19 121/79 91 04/21/17 06:32 97.4 96 18 139/68 93 04/21/17 00:00 97.7 90 18 122/67 94 04/20/17 20:00 97.5 89 22 102/65 93 04/20/17 18:00 91 04/20/17 16:00 97.7 81 20 113/74 94 04/20/17 12:00 97.6 93 20 107/67 96 04/20/17 04/20/17 04/21/17 15:00 23:00 07:00 Intake Total 480 ml Output Total 20 ml Balance 480 ml -20 ml Intake Oral 480 ml Output Urine Total 20 ml # Voids 3 2 # Bowel Movements 0 0 1 Imaging Last Impressions Head CT 04/13/172026 Signed Impressions: Service Date/Time: Thursday, April 13, 2017 20:39 - CONCLUSION: Cerebral atrophy and chronic ischemic small vessel vasculopathy. Guzman Sharp MD Chest X-Ray 04/13/172026 Signed Impressions: Service Date/Time: Thursday, April 13, 2017 20:26 - CONCLUSION: No acute disease. Guzman Sharp MD A/P Problem List: (1) Dysphagia Status: Acute Plan: Pt has hx aspiration, esophageal stricture and dilation now with alot of post pharynx secretions. cough and aspiration. speech and barium swallow noted GI doctor to evaluate as he seems to have trouble handling his own secretion even w/out eating..high risk of aspiration. says this is how he presented last time with obstruction in esophagus. ?trial levsin hold anticoagulation and plan for egd/dilation Saturday. (2) Knee effusion, left Status: Acute Plan: Pt c/o left knee effusion probably reactive from OA but given chondocalcinosis on xray it could be pseudogout steroid trial today the left knee effusion smaller and no pain left hip. cont current rx...if not completely better consider colchicine or naprosyn (3) UTI (urinary tract infection) Status: Acute Plan: - Patient started on Rocephin - Urine culture growing out Proteus Mirabilis with sensitivity to Cipro - Antibiotics changed to Cipro on 04/15 (4) Esophageal stricture Status: Chronic Plan: - s/p dilation - PPI (5) Generalized weakness Status: Acute Plan: - Likely exacerbated by patient's urinary tract infection - PT recommending rehab at SNF (6) Atrial fibrillation Status: Chronic Plan: - Atenolol, pradaxa (7) HTN (hypertension) Status: Chronic Plan: - stable - metoprolol (8) Dementia Status: Chronic Plan: - Patient follows with Dr. Salazar - Patient instructed by been awake to hold his galantamine for a week to see if that was causing his fatigue - Namenda (9) Diabetes mellitus type 2, diet-controlled Status: Chronic Plan: - Diet controlled Problem Qualifiers (1) UTI (urinary tract infection): Qualified Code: N30.01 - Acute cystitis with hematuria (2) Atrial fibrillation: Qualified Code: I48.2 - Chronic atrial fibrillation (3) HTN (hypertension): Qualified Code: I10 - Essential hypertension Leonel Nicole MD Apr 21, 2017 09:02
[2017-04-21 12:00] VITALS: BP 121/71; PULSE 85; RESP 19; TEMP 97.8; O2SAT 95
[2017-04-21] MEDS: SIMETHICONE 125 MG CHEWABLE TAB PO SCH ×2 (13:02→21:18)
--- NOTE | 2017-04-21 14:42 | HHI.GIFU ---
Subjective Remarks Sitting up in bed. and daughter at bedside. Reports episode of hiccups today. Denies abdominal pain. No nausea or vomiting. (Catina Arango) Objective Vitals I&O Vital Signs Date Time Temp Pulse Resp B/P Pulse Ox O2 Delivery O2 Flow Rate FiO2 04/21/17 12:00 97.8 85 19 121/71 95 04/21/17 08:00 97.4 97 19 121/79 91 04/21/17 06:32 97.4 96 18 139/68 93 04/21/17 00:00 97.7 90 18 122/67 94 04/20/17 20:00 97.5 89 22 102/65 93 04/20/17 18:00 91 04/20/17 16:00 97.7 81 20 113/74 94 I/O 04/20/17 04/20/17 04/20/17 04/21/17 04/21/17 04/21/17 06:59 14:59 22:59 06:59 14:59 22:59 Intake Total 480 ml Output Total 20 ml Balance 480 ml -20 ml Intake Oral 480 ml Output Urine Total 20 ml # Voids 1 3 2 # Bowel Movements 2 0 0 1 Imaging Last Impressions Knee X-Ray 04/19/17 0000 Signed Impressions: Service Date/Time: Wednesday, April 19, 2017 14:12 - CONCLUSION: Joint effusion, chronic changes and no definite fracture. Ariana Fisher MD Hip and Pelvis X-Ray 04/19/17 0000 Signed Impressions: Service Date/Time: Wednesday, April 19, 2017 14:09 - CONCLUSION: Slight osteopenia. Ariana Fisher MD Modified Barium Swallow 04/17/17 1553 Signed Impressions: Service Date/Time: Monday, April 17, 2017 15:53 - CONCLUSION: 1. No penetration of the supraglottic larynx or tracheal aspiration. 2. Minimal pooling within the paired vallecula and piriform sinuses. Jack Blum MD Chest X-Ray 04/16/17 0000 Signed Impressions: Service Date/Time: Sunday, April 16, 2017 11:33 - CONCLUSION: 1. Minimal interstitial changes in the left lower lung field with no confluent infiltrate. 2. Blunting of the left costophrenic angle may represent pleural parenchymal scarring or a small effusion. 3. Old granulomatous disease. Heart size is normal. Kevin Arreaga MD Head CT 04/13/172026 Signed Impressions: Service Date/Time: Thursday, April 13, 2017 20:39 - CONCLUSION: Cerebral atrophy and chronic ischemic small vessel vasculopathy. Guzman Sharp MD Physical Exam HEENT: PERRLA; normocephalic; atraumatic; no jaundice. CHEST: CTA CARDIAC: RRR ABDOMEN: Soft, nondistended, nontender; no hepatosplenomegaly; bowel sounds x 4. EXTREMITIES: No clubbing, cyanosis, left knee swollen SKIN: Normal; no rash; no jaundice. PROP SETTER: Alert. (Catina Arango) Assessment and Plan Plan ASSESSMENT Dysphagia with probable stricture. Patient with history of strictures, multiple EGDs & esophageal dilatations. History of aspiration PNA after MBS in 07/2016. Failed initial swallow eval this admission and 2nd one better with recommendation for soft diet and thin liquids. MBS did not show aspiration. Seems to have difficulty swallowing secretions. Pradaxa on hold. PLAN - EGD with dilatation Saturday - Obtain consents - NPO tonight at midnight - Hold Pradaxa - Soft diet - Supportive care. - Further recommendations to follow based on results of above Patient seen and examined by Dr. Celis and myself and this note is written on his behalf. (Catina Arango) Physician Comments Patient seen and examined Agree with above Continue with current supportive care Monitor labs EGD tomorrow with possible dilation (Petar Celis MD) Catina Arango Apr 21, 2017 14:41 Petar Celis MD Apr 21, 2017 21:01
[2017-04-21 16:00] VITALS: BP 114/62; PULSE 79; RESP 19; TEMP 97.2; O2SAT 91
[2017-04-21] MEDS ORDERED: chlorproMAZINE HCL 25 MG TAB PO PRN (16:45)
[2017-04-21 20:00] VITALS: BP 125/59; PULSE 81; RESP 18; TEMP 97.7; O2SAT 93
[2017-04-21] MEDS: ATORVASTATIN 40 MG TAB PO SCH (21:17)
[2017-04-22] VITALS (7 sets, daily range): BP systolic 101–135; BP diastolic 58–80; PULSE 76–99; RESP 18–20; TEMP 97.3–97.9; O2SAT 92–97
[2017-04-22] MEDS: SIMETHICONE 125 MG CHEWABLE TAB PO SCH ×3 (05:47→20:42)
[2017-04-22] MEDS: MEMANTINE HCL 10 MG TAB PO SCH ×2 (08:42→20:41)
[2017-04-22] MEDS: PANTOPRAZOLE SOD 40 MG DELAYED RELEASE TAB PO SCH ×2 (08:42→20:42)
[2017-04-22] MEDS: ATENOLOL 25 MG TAB PO SCH (08:42)
[2017-04-22] MEDS: CIPROFLOXACIN 500 MG TAB PO SCH ×2 (08:42→20:41)
[2017-04-22] MEDS: amLODIPine BESYLATE 5 MG TAB PO SCH ×2 (08:42→20:41)
[2017-04-22] MEDS: LORATADINE 10 MG TAB PO SCH (08:42)
[2017-04-22] MEDS: CHOLECALCIFEROL (VIT D3) 1000 UNIT TAB PO SCH (08:42)
[2017-04-22] MEDS: methylPREDNISolone SOD SUCC 125 MG/2 ML VIAL IV PUSH SCH ×2 (09:00→20:43)
[2017-04-22] MEDS ORDERED: PROPOFOL 200 MG/20 ML AMP IV ONE (10:56)
--- NOTE | 2017-04-22 11:09 | HHI.PR ---
Subjective Remarks going for endoscopy Objective Vitals heart reg lung cta abd s/nt ext left knee effusion better. Vital Signs Date Time Temp Pulse Resp B/P Pulse Ox O2 Delivery O2 Flow Rate FiO2 04/22/17 08:00 97.4 93 20 102/74 95 04/22/17 04:00 97.6 93 18 122/80 95 04/22/17 00:00 97.4 99 18 101/64 92 04/21/17 20:00 97.7 81 18 125/59 93 04/21/17 16:00 97.2 79 19 114/62 91 04/21/17 12:00 97.8 85 19 121/71 95 04/21/17 04/21/17 04/22/17 15:00 23:00 07:00 Intake Total 480 ml Output Total 0 ml Balance 480 ml Intake Oral 480 ml Output Urine Total 0 ml # Voids 5 # Bowel Movements 1 Imaging Last Impressions Head CT 04/13/172026 Signed Impressions: Service Date/Time: Thursday, April 13, 2017 20:39 - CONCLUSION: Cerebral atrophy and chronic ischemic small vessel vasculopathy. Guzman Shrap MD Chest X-Ray 04/13/172026 Signed Impressions: Service Date/Time: Thursday, April 13, 2017 20:26 - CONCLUSION: No acute disease. Guzman Sharp MD A/P Problem List: (1) Dysphagia Status: Acute Plan: Pt has hx aspiration, esophageal stricture and dilation now with alot of post pharynx secretions. cough and aspiration. speech and barium swallow noted GI doctor to evaluate as he seems to have trouble handling his own secretion even w/out eating..high risk of aspiration. says this is how he presented last time with obstruction in esophagus. ?trial levsin hold anticoagulation and plan for egd/dilation today reeval with PT and CM and decide snf vs hhc. family wants snf but pt may refuse.. (2) Knee effusion, left Status: Acute Plan: Pt c/o left knee effusion probably reactive from OA but given chondocalcinosis on xray it could be pseudogout steroid trial today the left knee effusion smaller and no pain left hip. stop steroid. knee better and family thinks causing hiccups if recurrent then nsaid or colchicine. (3) UTI (urinary tract infection) Status: Acute Plan: - Patient started on Rocephin - Urine culture growing out Proteus Mirabilis with sensitivity to Cipro - Antibiotics changed to Cipro on 04/15 (4) Esophageal stricture Status: Chronic Plan: - s/p dilation - PPI (5) Generalized weakness Status: Acute Plan: - Likely exacerbated by patient's urinary tract infection - PT recommending rehab at SNF (6) Atrial fibrillation Status: Chronic Plan: - Atenolol, pradaxa (7) HTN (hypertension) Status: Chronic Plan: - stable - metoprolol (8) Dementia Status: Chronic Plan: - Patient follows with Dr. Salazar - Patient instructed by been awake to hold his galantamine for a week to see if that was causing his fatigue - Namenda (9) Diabetes mellitus type 2, diet-controlled Status: Chronic Plan: - Diet controlled Problem Qualifiers (1) UTI (urinary tract infection): Qualified Code: N30.01 - Acute cystitis with hematuria (2) Atrial fibrillation: Qualified Code: I48.2 - Chronic atrial fibrillation (3) HTN (hypertension): Qualified Code: I10 - Essential hypertension Leonel Nicole MD Apr 22, 2017 11:08
--- NOTE | 2017-04-22 11:10 | HHI.DCPOC ---
Discharge Care Plan Diagnosis: (1) Aspiration into airway (2) UTI (urinary tract infection) (3) Generalized weakness (4) Knee effusion, left (5) Atrial fibrillation (6) Diabetes mellitus type 2, diet-controlled (7) HTN (hypertension) Goals to Promote Your Health * To prevent worsening of your condition and complications * To maintain your health at the optimal level Directions to Meet Your Goals Take your medications as prescribed Follow your dietary instruction Follow activity as directed Keep your appointments as scheduled Take your immunizations and boosters as scheduled If your symptoms worsen call your PCP, if no PCP go to Urgent Care Center or Emergency Room Smoking is Dangerous to Your Health. Avoid second hand smoke Call the 24-hour hour crisis hotline for domestic abuse at Leonel Nicole MD Apr 22, 2017 11:10
--- NOTE | 2017-04-22 11:20 | GIPROC ---
[facility] [address] [facility]. [facility], [id number] EGD WITH DILATION PROCEDURE REPORT EXAM DATE: 04/22/2017 PATIENT NAME: Gil Shaw MR#: [id number] BIRTHDATE: 1930 ATTENDING: Arti Campos MD ORDER #: [id number] CIVIL PROCESS SERVER: Rocco Reese and Toni Jonas STATUS: inpatient INDICATIONS: The patient is a 86 yr old male here for an EGD with dilation due to dysphagia hiccups PROCEDURE PERFORMED: EGD w/ biopsy EGD w/ dilation of esophagus via guidewire MEDICATIONS: None and Per Anesthesia. TOPICAL ANESTHETIC: none CONSENT: The patient understands the risks and benefits of the procedure and understands that these risks include, but are not limited to: sedation, allergic reaction, infection, perforation and/or bleeding. Alternative means of evaluation and treatment include, among others: physical exam, x-rays, and/or surgical intervention. The patient elects to proceed with this endoscopic procedure. medical equipment was checked for proper function. Hand hygiene and appropriate measures for infection prevention was taken. After the risks, benefits and alternatives of the procedure were thoroughly explained, Informed consent was verified, confirmed and timeout was successfully executed by the treatment team. The patient was anesthetized with topical anesthesia and the Pentax EG-[id number] endoscope was introduced through the mouth and advanced to the second portion of the duodenum. The instrument was slowly withdrawn as the mucosa was fully examined. Gastritis antrum-biopsy Schatzki's ring- esophagitis distal esophagus-biopsy spastic pylorus white deposits in esophagus and mouth possible zarina some secretions pulling in hypopharynx. Dilation was performed at gastroesophageal junction. DILATOR: SIZE(S): RESISTANCE: HEME: APPEARANCE: Dilator: Savary over guidewire Size(s): 16, 17 COMMENT: Retroflexed views revealed a hiatal hernia ADVERSE EVENTS: There were no complications. IMPRESSIONS: 1. Gastritis antrum-biopsy Schatzki's ring- esophagitis distal esophagus-biopsy spastic pylorus white deposits in esophagus and mouth possible zarina some secretions pulling in hypopharynx 2. Retroflexed views revealed a hiatal hernia RECOMMENDATIONS: 1. Await biopsy results. Biopsy results will not be ready for 7-10 days. If you don't hear from us in two weeks, call our office for biopsy results. 2. Anti-reflux regimen 3. Continue PPI 4. Dilatations PRN 5. Speech theraphy reevaluation diet consistency as per speech theraphy if still hiccups consider Baclofen Ba swallow if still difficulty swallowing REPEAT EXAM: EGD pending biopsy results Arti Campos MD eSigned: Arti Campos MD 04/22/2017 11:19 AM cc: PATIENT NAME: Gil Shaw MR#: [id number]
[2017-04-22] MEDS: NYSTATIN SUSP 500,000 U/5 ML CUP SWISH-SWAL SCH ×3 (13:09→20:42)
[2017-04-22] MEDS: ATORVASTATIN 40 MG TAB PO SCH (20:41)
[2017-04-22] MEDS: SODIUM CHLORIDE 0.9% FLUSH 10 ML FLUSH IV FLUSH SCH (20:43)
[2017-04-23] VITALS: BP 128/64; PULSE 82; RESP 21; TEMP 97.8; O2SAT 97
[2017-04-23 04:00] VITALS: BP 112/79; PULSE 89; RESP 18; TEMP 97.9; O2SAT 92; O2SAT 96
[2017-04-23] MEDS: SIMETHICONE 125 MG CHEWABLE TAB PO SCH (05:39)
[2017-04-23 08:00] VITALS: BP 135/60; PULSE 95; RESP 20; TEMP 97.2; O2SAT 92
[2017-04-23] MEDS: methylPREDNISolone SOD SUCC 125 MG/2 ML VIAL IV PUSH SCH (09:00)
[2017-04-23] MEDS: NYSTATIN SUSP 500,000 U/5 ML CUP SWISH-SWAL SCH (10:05)
[2017-04-23] MEDS: ATENOLOL 25 MG TAB PO SCH (10:05)
[2017-04-23] MEDS: CHOLECALCIFEROL (VIT D3) 1000 UNIT TAB PO SCH (10:05)
[2017-04-23] MEDS: CIPROFLOXACIN 500 MG TAB PO SCH (10:05)
[2017-04-23] MEDS: LORATADINE 10 MG TAB PO SCH (10:05)
[2017-04-23] MEDS: PANTOPRAZOLE SOD 40 MG DELAYED RELEASE TAB PO SCH (10:05)
[2017-04-23] MEDS: MEMANTINE HCL 10 MG TAB PO SCH (10:05)
[2017-04-23] MEDS: amLODIPine BESYLATE 5 MG TAB PO SCH (10:05)
[2017-04-23 12:00] VITALS: BP 131/77; PULSE 86; RESP 20; TEMP 97.3; O2SAT 95
--- NOTE | 2017-04-23 13:57 | HHI.FF ---
Face to Face Verification Diagnosis: (1) Generalized weakness (2) Esophageal stricture (3) UTI (urinary tract infection) (4) Knee effusion, left (5) Aspiration into airway (6) Dementia (7) HTN (hypertension) (8) Diabetes mellitus type 2, diet-controlled (9) Hyperlipidemia Physical Therapy Order: Evaluate and Treat, Improve ambulation, Strength and gait training Home Health Nursing Order: Nursing assessment with vital signs I have seen patient Gil Mauricio Jr Colin on 04/23/17. My clinical findings support the need for the requested home health care services because: Deconditioned w/ increased weakness Limited ability to care for self High risk of falls I certify that my clinical findings support that this patient is homebound because: Impaired cognitive ability/safety Unsteady gait/balance Unsafe to leave home unassisted Jeanie Alonso Apr 23, 2017 13:57 Jean-Paul Moreland DO Apr 24, 2017 01:28
[2017-04-23] MEDS ORDERED: NYST1000 SWISH-SWAL ×2 (13:58→14:25)
--- NOTE | 2017-04-23 14:26 | HHI.DS ---
Discharge Summary Admission Date Apr 19, 2017 at 12:18 Discharge Date: Apr 23, 2017 Admitting Diagnosis UTI, generalized weakness (1) Dysphagia Diagnosis: Secondary (2) Knee effusion, left Diagnosis: Secondary (3) UTI (urinary tract infection) Diagnosis: Principal (4) Esophageal stricture Diagnosis: Secondary (5) Generalized weakness Diagnosis: Secondary (6) Atrial fibrillation Diagnosis: Secondary (7) HTN (hypertension) Diagnosis: Secondary (8) Dementia Diagnosis: Secondary (9) Diabetes mellitus type 2, diet-controlled Diagnosis: Secondary Consultants Dr. Petar Celis/Dr. Arti Campos - GI Brief History Patient is a pleasant 86-year-old male with multiple medical problems including hypertension, atrial fibrillation, hyperlipidemia, and dementia. Most recently patient was hospitalized at [place] July 22 through July due to esophageal stricture, food bolus obstruction of the esophagus, and new onset atrial fibrillation. Patient now returns to the [place] ER with complaints of worsening generalized weakness. Patient's explains that he has been having a gradual decline. Previously patient ambulated with a cane only outside of the house, but now he needs the cane to ambulate even with in the house. His fatigue has greatly worsened over the last few days. Patient became fatigued yesterday to the point where he was unable to ambulate without significant assistance from his family. Workup in the ER revealed urinary tract infection and patient was started on intravenous Rocephin. Patient admitted to [facility] for further evaluation and treatment. I reviewed patient's last neurology visit with Dr. Salazar (04/12/17). Patient complained of fatigue at that time as well. Dr. Salazar was concerned that possibly patient's weakness could be related to his galantamine and asked that the family hold the galantamine for a week and see if his symptoms improved. Patient denies chest pain, palpitations, nausea and vomiting, diaphoresis, or worsening shortness of breath. Imaging Last Impressions Knee X-Ray 04/19/17 0000 Signed Impressions: Service Date/Time: Wednesday, April 19, 2017 14:12 - CONCLUSION: Joint effusion, chronic changes and no definite fracture. Ariana Fisher MD Hip and Pelvis X-Ray 04/19/17 0000 Signed Impressions: Service Date/Time: Wednesday, April 19, 2017 14:09 - CONCLUSION: Slight osteopenia. Ariana Fisher MD Modified Barium Swallow 04/17/17 1553 Signed Impressions: Service Date/Time: Monday, April 17, 2017 15:53 - CONCLUSION: 1. No penetration of the supraglottic larynx or tracheal aspiration. 2. Minimal pooling within the paired vallecula and piriform sinuses. Jack Blum MD Chest X-Ray 04/16/17 0000 Signed Impressions: Service Date/Time: Sunday, April 16, 2017 11:33 - CONCLUSION: 1. Minimal interstitial changes in the left lower lung field with no confluent infiltrate. 2. Blunting of the left costophrenic angle may represent pleural parenchymal scarring or a small effusion. 3. Old granulomatous disease. Heart size is normal. Kvein Arreaga MD Head CT 04/13/172026 Signed Impressions: Service Date/Time: Thursday, April 13, 2017 20:39 - CONCLUSION: Cerebral atrophy and chronic ischemic small vessel vasculopathy. Guzman Sharp MD Hospital Course Pt is an 86 y/o male with hx os aspiration, esophageal stricture and dilation. He was admitted with generalized weakness and was found to have a UTI. Urine culture grew out Proteus Mirabilis with sensitivity to Cipro. Pt was fully treated with Cipro. During admission he complained of coughing with po intake. We consulted ST who initially noted that the pt had overt s/s of aspiration and was recommended NPO. Pt underwent evaluation with MBS (04/17) which noted NO penetration of the supraglottic larynx or tracheal aspiration with minimal pooling within the paired vallecula and piriform sinuses. Pt was noted to have a lot of post pharynx secretions. GI was consulted to evaluate as he seemed to have trouble handling his own secretion even w/out eating and was felt to be high risk for aspiration. Pt underwent evaluation with EGD with dilation on 04/22 which noted gastritis in the antrum, Schatzki's ring and esophagitis in the distal esophagus, spastic pylorus, white deposits in esophagus and mouth possible zarina, and some secretions pooling in the hypopharynx. Dilation was performed at the gastroesophageal junction. Pt was started on Nystatin S/S per GI. ST followed throughout the admission and on the day of discharge ST recommended soft diet with thin liquids and at that time was not having any overt S/S of aspiration. During admission pt c/o left knee effusion. Anchor to probably be reactive from OA but given chondrocalcinosis on X-ray it could be pseudogout. Pt was given a steroid trial with improvement in the left knee effusion and left hip pain. The steroids were stopped as the family felt that this was causing hiccups. Pt was given Thorazine x one dose for the hiccups and this did not seem to help and the family did not want to continue this upon discharge. If his knee pain is recurrent then could consider NSAID or colchicine. Pt and family want to take him home despite PT recommendations for rehab upon discharge. The pts wants to give it a week at home and if unable to manage him then she will contact the pts PCP for rehab placement. A 3008 form was filled out and given to the patients to take home with them in case they decide to opt for rehab. Pt needs to followup with his PCP, Dr. Marco Antonio Faye, in 1 week Pt need to followup with GI, Dr. Campos, in 2 weeks. Followup on pathology results from EGD He will continue the Nystatin S/S for 6 days, then stop. Pt Condition on Discharge: Stable Discharge Disposition: Disch w/ Home Health Serv Discharge Instructions DIET: Follow Instructions for: Heart Healthy Diet Speech Therapy-Diet Recommends: Soft Activities you can perform: Regular-No Restrictions Follow up Referrals: Gastroenterology - 2 Weeks with Arti Campos MD PCP Follow-up - [address] Marco Antonio Faye New Medications: Nystatin Liq (Nystatin Liq) 100,000 unit/ml Susp 5 ML SWISH-SWAL QID candidiasis #1 BOTTLE Continued Medications: Amlodipine (Norvasc) 5 Mg Tab 5 MG PO BID Blood Pressure Management #30 Ref 0 TAB Atenolol (Atenolol) 25 Mg Tab 25 MG PO DAILY Blood Pressure Management #30 TAB Atorvastatin (Lipitor) 40 Mg Tab 40 MG PO HS Cholesterol Management #30 Ref 0 TAB Cholecalciferol (Vitamin D3) 1,000 Unit Tab 1000 UNITS PO DAILY Nutritional Supplement #1 Ref 0 BOTTLE Dabigatran (Pradaxa) 150 Mg Cap 150 MG PO BID resume on 07/27 Blood Clot Prevention #0 Ref 0 CAP Memantine (Memantine) 10 Mg Tab 10 MG PO BID Alzheimer's Dementia Ref 0 TAB Pantoprazole (Pantoprazole) 40 Mg Tab 40 MG PO BID Reflux #30 Ref 0 TAB Discontinued Medications: Galantamine ER (Galantamine ER) 24 Mg Caper 24 MG PO DAILY Alzheimer's Dementia #30 Ref 0 CAP Additional Information Patient examined. Assessment and plan formulated with Jeanie Alonso PA-C. I agree with the above. Jeanie Alonso Apr 23, 2017 14:26 Jean-Paul Moreland DO Apr 24, 2017 01:28
[2017-04-23 16:00] VITALS: BP 141/68; PULSE 83; RESP 20; TEMP 97.2; O2SAT 94
--- NOTE | 2017-04-23 16:18 | HHI.GIFU ---
Subjective Remarks Pt resting in bed, says his swallowing is better since procedure, no issues. No problems with swallowing secretions either. Still has hiccups. Objective Vitals I&O Vital Signs Date Time Temp Pulse Resp B/P Pulse Ox O2 Delivery O2 Flow Rate FiO2 04/23/17 12:00 97.3 86 20 131/77 95 04/23/17 08:00 97.2 95 20 135/60 92 04/23/17 04:00 97.9 89 18 112/79 96 04/23/17 00:00 97.8 82 21 128/64 97 04/22/17 20:55 97.9 82 18 131/58 97 04/22/17 20:00 85 I/O 04/22/17 04/22/17 04/22/17 04/23/17 04/23/17 04/23/17 07:00 15:00 23:00 07:00 15:00 23:00 Intake Total 200 ml Output Total 400 ml Balance 200 ml -400 ml Other 200 ml Output Urine Total 400 ml # Voids 1 1 # Bowel Movements 1 Imaging Last Impressions Knee X-Ray 04/19/17 0000 Signed Impressions: Service Date/Time: Wednesday, April 19, 2017 14:12 - CONCLUSION: Joint effusion, chronic changes and no definite fracture. Ariana Fisher MD Hip and Pelvis X-Ray 04/19/17 0000 Signed Impressions: Service Date/Time: Wednesday, April 19, 2017 14:09 - CONCLUSION: Slight osteopenia. Ariana Fisher MD Modified Barium Swallow 04/17/17 1553 Signed Impressions: Service Date/Time: Monday, April 17, 2017 15:53 - CONCLUSION: 1. No penetration of the supraglottic larynx or tracheal aspiration. 2. Minimal pooling within the paired vallecula and piriform sinuses. Jack Blum MD Chest X-Ray 04/16/17 0000 Signed Impressions: Service Date/Time: Sunday, April 16, 2017 11:33 - CONCLUSION: 1. Minimal interstitial changes in the left lower lung field with no confluent infiltrate. 2. Blunting of the left costophrenic angle may represent pleural parenchymal scarring or a small effusion. 3. Old granulomatous disease. Heart size is normal. Kevin Arreaga MD Head CT 04/13/172026 Signed Impressions: Service Date/Time: Thursday, April 13, 2017 20:39 - CONCLUSION: Cerebral atrophy and chronic ischemic small vessel vasculopathy. Guzman Sharp MD Physical Exam HEENT: PERRLA; normocephalic; atraumatic; no jaundice. CHEST: CTA CARDIAC: irr HR ABDOMEN: Soft, nondistended, nontender; no hepatosplenomegaly; bowel sounds x 4. EXTREMITIES: No clubbing, cyanosis, edema SKIN: Normal; no rash; no jaundice. FISHERIES TECHNICAL OFFICER: Alert. Assessment and Plan Plan ASSESSMENT Dysphagia with probable stricture. Patient with history of strictures, multiple EGDs & esophageal dilatations. History of aspiration PNA after MBS in 07/2016. Failed initial swallow eval this admission and 2nd one better with recommendation for soft diet and thin liquids. MBS did not show aspiration. Seems to have difficulty swallowing secretions. Pradaxa on hold. EGD 04-22-17--> s/p dilation, gastritis, esophagitis, schatzkis ring, spastic pylorus, white deposits esophagus and mouth poss zarina, some secretions pooling pharynx, hiatal hernia PLAN - f/u with GI as outpatient - consider baclofen if hiccups persist - soft diet and thin liquids per ST - if dysphagia reoccurs, Barium swallow - await bx - Supportive care. - okay for d/c from GI standpoint Patient seen and examined by Dr. Campos and myself and this note is written on her behalf. Catherine Traylor Apr 23, 2017 16:18
== END 2017-04-23 17:16 | disposition home health service (06) | DRG 690 ==
LOC: NEPC 19:34 → NEDA 23:03 → NEPHCDU 23:57 → N05A 04-16 20:58 → OBSVTOIN 04-19 12:18
PROVIDERS: ADMIT Hospitalist; ATTEND Hospitalist
PROC: 0D748ZZ Dilation of Esophagogastric Junction, Via Natural or Artificial Opening Endoscopic (ICD-10-PCS; 2017-04-22)
PROC: 0DB68ZX Excision of Stomach, Via Natural or Artificial Opening Endoscopic, Diagnostic (ICD-10-PCS; principal; 2017-04-22 10:40)
DX: N39.0 Urinary tract infection, site not specified (principal); B96.4 Proteus (mirabilis) (morganii) as the cause of diseases classified elsewhere; I27.2 Other secondary pulmonary hypertension; I48.91 Unspecified atrial fibrillation; Z79.02 Long term (current) use of antithrombotics/antiplatelets; B37.81 Candidal esophagitis; B37.0 Candidal stomatitis; F03.90 Unspecified dementia, unspecified severity, without behavioral disturbance, psychotic disturbance, mood disturbance, and anxiety; I12.9 Hypertensive chronic kidney disease with stage 1 through stage 4 chronic kidney disease, or unspecified chronic kidney disease; N18.2 Chronic kidney disease, stage 2 (mild); G25.0 Essential tremor; K22.2 Esophageal obstruction; K31.3 Pylorospasm, not elsewhere classified; R13.10 Dysphagia, unspecified; E11.9 Type 2 diabetes mellitus without complications; E78.5 Hyperlipidemia, unspecified; M25.462 Effusion, left knee; R53.1 Weakness; N40.0 Benign prostatic hyperplasia without lower urinary tract symptoms; K57.90 Diverticulosis of intestine, part unspecified, without perforation or abscess without bleeding; K21.0 Gastro-esophageal reflux disease with esophagitis; K29.70 Gastritis, unspecified, without bleeding; K44.9 Diaphragmatic hernia without obstruction or gangrene; R06.6 Hiccough; N52.9 Male erectile dysfunction, unspecified; N48.6 Induration penis plastica; K40.90 Unilateral inguinal hernia, without obstruction or gangrene, not specified as recurrent; I77.89 Other specified disorders of arteries and arterioles; I70.0 Atherosclerosis of aorta; Z87.891 Personal history of nicotine dependence; N62 Hypertrophy of breast; Z96.651 Presence of right artificial knee joint
CPT/HCPCS: 70450; 71010; 73502; 73560; 74230; 76937; 80048; 80053; 81001; 82140; 82550; 82552; 82607; 82746; 83605; 83735; 84439; 84443; 84484; 85025; 85610; 85730; 86592; 87040; 87077; 87086; 87186; 88305; 88312; 93005; 96361; 96365; 96366; 96375; 96376; C1769; G0378; G8987-GP; G8988-GP; G8996-GN; G8997-GN; G8998-GN; J0696; J2930; J7030

== ENCOUNTER 2017-11-27 16:18 | Observation (INO) | payer MEDICARE ==
[~2017-11-27 16:18] MED LIST changes: +GALA24CA PO; -GALA8TAB PO; +NYST1000 SWISH-SWAL
[2017-11-27 16:33] VITALS: BP 116/74; PULSE 85; RESP 16; TEMP 97.6; O2SAT 96
--- NOTE | 2017-11-27 17:11 | PD ---
HPI Chief Complaint: GI Complaint Time Seen by Provider: 16:53 Travel History International Travel<30 days: No Contact w/Intl Traveler<30days: No Traveled to known affect area: No History of Present Illness HPI 87-year-old male presents to the emergency department with his daughter granddaughter at bedside for evaluation of possible esophageal stricture. Patient states that since yesterday morning, he has been unable to keep any food or liquid down. He will swallow and cough it right back up. According to the family, he has been having trouble for the past couple weeks, but since yesterday morning has not been able to eat or drink anything. He denies any other symptoms or complaints. No headache. No fevers or chills. No chest pain or shortness breath. No abdominal pain. No nausea, vomiting, diarrhea. According to family, last time he had esophageal stricture they did a barium swallow and he wound up with pneumonia. His prototype carpenter is Dr. Campos. No exacerbating or alleviating factors. Moderate severity. PFSH Past Medical History Hx Anticoagulant Therapy: Yes Arthritis: Yes Heart Rhythm Problems: Yes Cancer: Yes Cardiovascular Problems: Yes (a fib) High Cholesterol: Yes Chemotherapy: No Chest Pain: No Congestive Heart Failure: No Cerebrovascular Accident: No Diabetes: No Diminished Hearing: No Endocrine: No Gastrointestinal Disorders: Yes (Reflux) GERD: Yes Genitourinary: No Hepatitis: No Hiatal Hernia: No Hypertension: Yes Immune Disorder: No Implanted Vascular Access Dvce: Yes Musculoskeletal: Yes (ARTHRITIS) Neurologic: Yes (DEMENTIA) Psychiatric: No Reproductive: No Respiratory: No Radiation Therapy: No Thyroid Disease: No Past Surgical History Abdominal Surgery: No AICD: No Appendectomy: Yes Body Medical Devices: Right knee Cardiac Surgery: No Ear Surgery: No Eye Surgery: Yes (DETACHED RETINA REPAIR) Genitourinary Surgery: Yes Gynecologic Surgery: No Joint Replacement: Yes (R TKA) Oral Surgery: No Pacemaker: No Prostatectomy: Yes (Partial) Thoracic Surgery: No Other Surgery: Yes (Right knee, appentecdomy, TURP, esoph stricture stretched) Social History Alcohol Use: Yes (2-3 times weekly) Tobacco Use: No (QUIT 1965) Substance Use: No Allergies-Medications (Allergen,Severity, Reaction): Coded Allergies: Sulfa (Sulfonamide Antibiotics) (Unverified Allergy, Severe, MIGRAINES, RED EYES, 05/07/17) Reported Meds & Prescriptions Reported Meds & Active Scripts Active Pradaxa (Dabigatran) 150 Mg Cap 150 Mg PO BID resume on 07/27 Reported Vitamin D3 (Cholecalciferol) 1,000 Unit Tab 1,000 Units PO DAILY Pantoprazole (Pantoprazole Sodium) 40 Mg Tab 40 Mg PO BID Memantine 10 Mg Tab 10 Mg PO BID Norvasc (Amlodipine Besylate) 5 Mg Tab 5 Mg PO BID Lipitor (Atorvastatin Calcium) 40 Mg Tab 40 Mg PO HS Atenolol 25 Mg Tab 25 Mg PO DAILY Review of Systems Except as stated in HPI: all other systems reviewed are Neg Physical Exam Narrative GENERAL: Well-nourished, well-developed male patient, afebrile. SKIN: Focused skin assessment warm/dry. HEAD: Normocephalic. Atraumatic. ENT: Mucosa pink and moist. No erythema or exudates. No uvular edema. No uvular , palatal, or tonsillar deviation. Airway patent. Nasal turbinates appear normal without nasal blood, purulent drainage or septal hematoma. EYES: No scleral icterus. No injection or drainage. NECK: Supple, trachea midline. No JVD or lymphadenopathy. CARDIOVASCULAR: Regular rate and rhythm without murmurs, gallops, or rubs. RESPIRATORY: Breath sounds equal bilaterally. No accessory muscle use. Lungs sounds are clear to auscultation. GASTROINTESTINAL: Abdomen soft, non-tender, nondistended. MUSCULOSKELETAL: No cyanosis, or edema. BACK: Nontender without obvious deformity. No CVA tenderness. Data Data Last Documented VS Vital Signs Date Time Temp Pulse Resp B/P (MAP) Pulse Ox O2 Delivery O2 Flow Rate FiO2 11/27/17 16:33 97.6 85 16 116/74 (88) 96 Orders Orders Complete Blood Count With Diff (11/27/17 16:35) Comprehensive Metabolic Panel (11/27/17 16:35) Act Partial Throm Time (Ptt) (11/27/17 16:35) Prothrombin Time / Inr (Pt) (11/27/17 16:35) Chest, Single Ap (11/27/17 ) Iv Access Insert/Monitor (11/27/17 17:04) Sodium Chlor 0.9% 1000 Ml Inj (Ns 1000 M (11/27/17 17:15) Amlodipine (Norvasc) (11/27/17 21:00) Atenolol (Tenormin) (11/28/17 09:00) Cholecalciferol (Vitamin D3) (11/28/17 09:00) Memantine (Namenda) (11/27/17 21:00) Carbidopa-Levodopa 25-100 Mg (Sinemet 25 (11/28/17 00:00) Enalaprilat Inj (Vasotec Inj) (11/27/17 18:30) Admit Order (Ed Use Only) (11/27/17 18:32) Labs Laboratory Tests Test 11/27/17 17:30 White Blood Count 7.9 TH/MM3 Red Blood Count 4.12 MIL/MM3 Hemoglobin 13.6 GM/DL Hematocrit 39.0 % Mean Corpuscular Volume 94.7 FL Mean Corpuscular Hemoglobin 33.0 PG Mean Corpuscular Hemoglobin Concent 34.9 % Red Cell Distribution Width 14.6 % Platelet Count 177 TH/MM3 Mean Platelet Volume 9.7 FL Neutrophils (%) (Auto) 70.7 % Lymphocytes (%) (Auto) 17.2 % Monocytes (%) (Auto) 10.8 % Eosinophils (%) (Auto) 0.7 % Basophils (%) (Auto) 0.6 % Neutrophils # (Auto) 5.6 TH/MM3 Lymphocytes # (Auto) 1.4 TH/MM3 Monocytes # (Auto) 0.9 TH/MM3 Eosinophils # (Auto) 0.1 TH/MM3 Basophils # (Auto) 0.0 TH/MM3 CBC Comment DIFF FINAL Differential Comment Prothrombin Time 11.4 SEC Prothromb Time International Ratio 1.1 RATIO Activated Partial Thromboplast Time 32.0 SEC Blood Urea Nitrogen 13 MG/DL Creatinine 1.03 MG/DL Random Glucose 107 MG/DL Total Protein 7.1 GM/DL Albumin 3.5 GM/DL Calcium Level 8.8 MG/DL Alkaline Phosphatase 86 U/L Aspartate Amino Transf (AST/SGOT) 14 U/L Alanine Aminotransferase (ALT/SGPT) 7 U/L Total Bilirubin 1.0 MG/DL Sodium Level 141 MEQ/L Potassium Level 4.4 MEQ/L Chloride Level 108 MEQ/L Carbon Dioxide Level 24.4 MEQ/L Anion Gap 9 MEQ/L Estimat Glomerular Filtration Rate 68 ML/MIN MDM Medical Decision Making Medical Screen Exam Complete: Yes Emergency Medical Condition: Yes Medical Record Reviewed: Yes Interpretation(s) chest x-ray - CONCLUSION: No acute disease. Differential Diagnosis Esophageal stricture versus GERD versus dysphagia versus pneumonia versus electrolyte abnormality versus dehydration Narrative Course 87-year-old male presents to the emergency department unable to eat or drink anything since yesterday morning with a history of esophageal stricture. IV is established. Patient is given 1 L IV normal saline. CBC, CMP, PTT, PT/INR, chest x-ray ordered and pending. CBC shows no acute abnormality. CMP shows no acute abnormality. Coags show no acute abnormalities. Chest x-ray shows no acute disease. I spoke with prototype carpenter, Dr. Ocampo, who recommends admission and consultation. Dr. Robledo accepted admission. Diagnosis Primary Impression: Esophageal stricture Admitting Information Admitting Physician Requests: Deanne Childers Nov 27, 2017 17:11
[2017-11-27] MEDS ORDERED: SODIUM CHLOR 0.9% 1000 ML INJ 1,000 ML IV ONE (17:15)
[2017-11-27] MEDS ORDERED: CARB1TAB52 PO (17:25)
--- NOTE | 2017-11-27 17:32 | RADRPT ---
EXAM DATE/TIME: 11/27/2017 17:08 [place] COMPARISON: CHEST SINGLE AP, April 16, 2017, 11:33. INDICATIONS : Cough. Patient states difficulty swallowing. MEDICAL HISTORY : Gastroesophageal reflux disease. Hypertension Myocardial infarction. SURGICAL HISTORY : None. ENCOUNTER: Initial ACUITY: 1 week PAIN SCORE: 0/10 LOCATION: Bilateral chest FINDINGS: A single view of the chest demonstrates the lungs to be symmetrically aerated without evidence of mas s, infiltrate or effusion. The cardiomediastinal contours are unremarkable. Osseous structures are intact. CONCLUSION: No acute disease. Ramiro Pritchett Jr., MD on November 27, 2017 at 17:28 Board Certified Radiologist. This report was verified electronically.
[2017-11-27 18:08] LABS: AUTOMATED NEUTROPHIL # 5.6 TH/MM3 (1.8-7.7); BASOPHIL % 0.6 % (0.0-2.0); EOSINOPHIL # 0.1 TH/MM3 (0-0.4); EOSINOPHIL % 0.7 % (0.0-4.0); HEMOGLOBIN 13.6 GM/DL (13.0-17.0); LYMPH % 17.2 % (9.0-44.0); LYMPHOCYTE # 1.4 TH/MM3 (1.0-4.8); MEAN CELL VOLUME 94.7 FL (80.0-100.0); MEAN CORPUSCULAR HGB CONC 34.9 % (32.0-36.0); MEAN PLATELET VOLUME 9.7 FL (7.0-11.0); MONO % 10.8 % (0.0-8.0); MONOCYTE # 0.9 TH/MM3 (0-0.9); NEUT % 70.7 % (16.0-70.0); PLATELET COUNT 177 TH/MM3 (150-450); RED BLOOD COUNT 4.12 MIL/MM3 (4.50-5.90); RED CELL DISTRIBUTION WIDTH 14.6 % (11.6-17.2); WHITE BLOOD COUNT 7.9 TH/MM3 (4.0-11.0)
[2017-11-27 18:20] LABS: INTERNATIONAL NORMALIZED RATIO 1.1 RATIO; PROTHROMBIN TIME - PATIENT 11.4 SEC (9.8-11.6)
[2017-11-27 18:26] LABS: ALBUMIN 3.5 GM/DL (3.4-5.0); ALT (GPT) 7 U/L (12-78); AST (GOT) 14 U/L (15-37); BICARBONATE 24.4 MEQ/L (21.0-32.0); BLOOD UREA NITROGEN 13 MG/DL (7-18); CALCIUM 8.8 MG/DL (8.5-10.1); CHLORIDE 108 MEQ/L (98-107); CREATININE 1.03 MG/DL (0.60-1.30); GLOMERULAR FILTRATION RATE 68 ML/MIN (>89); GLUCOSE,RANDOM 107 MG/DL (74-106); SODIUM (NA) 141 MEQ/L (136-145)
[2017-11-27 18:29] LABS: ALKALINE PHOSPHATASE 86 U/L (45-117); TOTAL PROTEIN 7.1 GM/DL (6.4-8.2)
--- NOTE | 2017-11-27 18:37 | HHI.HP ---
HPI Service [facility] Hospitalists Primary Care Physician Marco Antonio Faye MD Admission Diagnosis dysphagia Chief Complaint: difficulty swallowing and vomit today Travel History International Travel<30 Days: No Contact w/Intl Traveler <30 Da: No Traveled to Known Affected Are: No History of Present Illness 87-year-old male presents to the emergency department for evaluation of possible esophageal stricture. Patient states that since yesterday morning, he has been unable to keep any food or liquid down. He will swallow and cough it right back up. According to the family, he has been having trouble for the past couple weeks, but since yesterday morning has not been able to eat or drink anything. He denies any other symptoms or complaints. No headache. No fevers or chills. No chest pain or shortness breath. No abdominal pain. No nausea, vomiting, diarrhea. According to family, last time he had esophageal stricture they did a barium swallow and he wound up with pneumonia. ER discussed case with GI and they want admit for endoscopy in am with hx esophageal stricture. Review of Systems Gastrointestinal: COMPLAINS OF: Nausea, Vomiting, Difficulty Swallowing Past Family Social History Past Medical History a fib,parkinson,hyperlipid,esophageal stricture hypertension,mild dementia Past Surgical History retinal surgery,RT TKA prostate surgery appendix Reported Medications carbidopa 25 qid,vit d pantoprozole 40 bid,memtine 10 bid,norvasc 5 bid,lipitor 40 atenol 25 Allergies: Coded Allergies: Sulfa (Sulfonamide Antibiotics) (Unverified Allergy, Severe, MIGRAINES, RED EYES, 05/07/17) Social History NS,ND Physical Exam Vital Signs Vital Signs Date Time Temp Pulse Resp B/P (MAP) Pulse Ox O2 Delivery O2 Flow Rate FiO2 11/27/17 16:33 97.6 85 16 116/74 (88) 96 Physical Exam GENERAL: This is a well-nourished, well-developed patient, in no apparent distress. SKIN: No rashes, ecchymoses or lesions. Cool and dry. HEAD: Atraumatic. Normocephalic. No temporal or scalp tenderness. EYES: Pupils equal round and reactive. Extraocular motions intact. No scleral icterus. No injection or drainage. ENT: Nose without bleeding, purulent drainage or septal hematoma. Throat without erythema, tonsillar hypertrophy or exudate. Uvula midline. Airway patent. NECK: Trachea midline. No JVD or lymphadenopathy. Supple, nontender, no meningeal signs. CARDIOVASCULAR: Regular rate and rhythm without murmurs, gallops, or rubs. RESPIRATORY: Clear to auscultation. Breath sounds equal bilaterally. No wheezes , rales, or rhonchi. GASTROINTESTINAL: Abdomen soft, non-tender, nondistended. No hepato-splenomegaly , or palpable masses. No guarding. MUSCULOSKELETAL: Extremities without clubbing, cyanosis, or edema. No joint tenderness, effusion, or edema noted. No calf tenderness. Negative Homans sign bilaterally. NEUROLOGICAL: Awake and alert. Cranial nerves II through XII intact. Motor and sensory grossly within normal limits. Five out of 5 muscle strength in all muscle groups. Normal speech. Laboratory Laboratory Tests Test 11/27/17 17:30 White Blood Count 7.9 Red Blood Count 4.12 Hemoglobin 13.6 Hematocrit 39.0 Mean Corpuscular Volume 94.7 Mean Corpuscular Hemoglobin 33.0 Mean Corpuscular Hemoglobin Concent 34.9 Red Cell Distribution Width 14.6 Platelet Count 177 Mean Platelet Volume 9.7 Neutrophils (%) (Auto) 70.7 Lymphocytes (%) (Auto) 17.2 Monocytes (%) (Auto) 10.8 Eosinophils (%) (Auto) 0.7 Basophils (%) (Auto) 0.6 Neutrophils # (Auto) 5.6 Lymphocytes # (Auto) 1.4 Monocytes # (Auto) 0.9 Eosinophils # (Auto) 0.1 Basophils # (Auto) 0.0 CBC Comment DIFF FINAL Differential Comment Prothrombin Time 11.4 Prothromb Time International Ratio 1.1 Activated Partial Thromboplast Time 32.0 Blood Urea Nitrogen 13 Creatinine 1.03 Random Glucose 107 Albumin 3.5 Calcium Level 8.8 Aspartate Amino Transf (AST/SGOT) 14 Alanine Aminotransferase (ALT/SGPT) 7 Sodium Level 141 Potassium Level 4.4 Chloride Level 108 Carbon Dioxide Level 24.4 Anion Gap 9 Estimat Glomerular Filtration Rate 68 Result Diagram: 11/27/17 1730 11/27/17 1730 Imaging Last 24 hours Impressions Chest X-Ray 11/27/17 0000 Signed Impressions: Service Date/Time: Monday, November 27, 2017 17:08 - CONCLUSION: No acute disease. MD Venkata Sandoval Jr. VTE Risk Assessment Venkata VTE Risk Assessment: Mod/High Risk (score >= 2) Caprini Risk Assessment Model Point Value = 1 Point Value = 2 Point Value = 3 Point Value = 5 Age 41-60 Minor surgery BMI > 25 kg/m2 Swollen legs Varicose veins or History of unexplained or recurrent spontaneous Oral contraceptives or hormone replacement Sepsis (< 1 month) Serious lung disease, including pneumonia (< 1 month) Abnormal pulmonary function Acute myocardial infarction Congestive heart failure (< 1 month) History of inflammatory bowel disease Medical patient at bed rest Age 61-74 Arthroscopic surgery Major open surgery (> 45 min) Laparoscopic surgery (> 45 min) Malignancy Confined to bed (> 72 hours) Immobilizing plaster cast Central venous access Age >= 75 History of VTE Family history of VTE Factor V Leiden Prothrombin 20085A Lupus anticoagulant Anticardiolipin antibodies Elevated serum homocysteine Heparin-induced thrombocytopenia Other congenital or acquired thrombophilia Stroke (< 1 month) Elective arthroplasty Hip, pelvis, or leg fracture Acute spinal cord injury (< 1 month) Prophylaxis Regimen Total Risk Factor Score Risk Level Prophylaxis Regimen 0-1 Low Early ambulation 2 Moderate Order ONE of the following: *Sequential Compression Device (SCD) *Heparin 5000 units SQ BID 3-4 Higher Order ONE of the following medications: *Heparin 5000 units SQ TID *Enoxaparin/Lovenox 40 mg SQ daily (WT < 150 kg, CrCl > 30 mL/min) *Enoxaparin/Lovenox 30 mg SQ daily (WT < 150 kg, CrCl > 10-29 mL/min) *Enoxaparin/Lovenox 30 mg SQ BID (WT < 150 kg, CrCl > 30 mL/min) AND/OR *Sequential Compression Device (SCD) 5 or more Highest Order ONE of the following medications: *Heparin 5000 units SQ TID (Preferred with Epidurals) *Enoxaparin/Lovenox 40 mg SQ daily (WT < 150 kg, CrCl > 30 mL/min) *Enoxaparin/Lovenox 30 mg SQ daily (WT < 150 kg, CrCl > 10-29 mL/min) *Enoxaparin/Lovenox 30 mg SQ BID (WT < 150 kg, CrCl > 30 mL/min) AND *Sequential Compression Device (SCD) Assessment and Plan Problem List: (1) Dysphagia ICD Codes: R13.10 - Dysphagia, unspecified Status: Acute Plan: case discussed with GI admit NPO after midnight GI consult Dr. Ocampo, for endoscopy (2) Nausea & vomiting ICD Codes: R11.2 - Nausea with vomiting, unspecified Plan: zofran prn and protonix IV (3) Afib ICD Codes: I48.91 - Unspecified atrial fibrillation Plan: on atenolol continue hold pradaxa tonight (4) Parkinson disease ICD Codes: G20 - Parkinson's disease Plan: continue home meds Assessment and Plan as above Code Status full Discussed Condition With patient family Sandip Flores MD Nov 27, 2017 18:37
[2017-11-27] MEDS ORDERED: LACTULOSE SYRUP 20 GM/30 ML CUP PO PRN (20:00)
[2017-11-27] MEDS ORDERED: MAGNESIUM HYDROXIDE SUSP 30 ML CUP PO PRN (20:00)
[2017-11-27] MEDS ORDERED: BISACODYL 10 MG SUPP RECTAL PRN (20:00)
[2017-11-27] MEDS ORDERED: ONDANSETRON HCL 4 MG/2 ML VIAL IVP PRN (20:00)
[2017-11-27] MEDS ORDERED: SODIUM CHLORIDE 0.9% FLUSH 10 ML FLUSH IV FLUSH PRN (20:00)
[2017-11-27] MEDS ORDERED: NALOXONE HCL 0.4 MG/ML AMP IV PUSH PRN (20:00)
[2017-11-27] MEDS ORDERED: ENALAPRILAT 1.25 MG/ML VIAL IV PUSH PRN (20:00)
[2017-11-27] MEDS ORDERED: SENNOSIDES 8.6 MG TAB PO PRN (20:00)
[2017-11-27] MEDS: amLODIPine BESYLATE 5 MG TAB PO SCH (21:39)
[2017-11-27] MEDS: SODIUM CHLOR 0.45% 1000 ML INJ 1,000 ML IV SCH (21:39)
[2017-11-27] MEDS: PANTOPRAZOLE SODIUM 40 MG VIAL IV PUSH SCH (21:39)
[2017-11-27] MEDS: DOCUSATE SODIUM 50 MG/SENNA 8.6 MG TAB PO SCH (21:39)
[2017-11-27] MEDS: SODIUM CHLORIDE 0.9% FLUSH 10 ML FLUSH IV FLUSH SCH (21:40)
[2017-11-27] MEDS: CARBIDOPA/LEVODOPA 25 MG/100 MG TAB PO SCH (22:14)
[2017-11-27] MEDS: MEMANTINE HCL 10 MG TAB PO SCH (23:30)
[2017-11-28 01:17] VITALS: BP 125/84; PULSE 76; RESP 16; TEMP 97.5; O2SAT 92
[2017-11-28] MEDS: CARBIDOPA/LEVODOPA 25 MG/100 MG TAB PO SCH ×2 (05:11→12:00)
[2017-11-28 05:25] VITALS: BP 117/79; PULSE 78; RESP 16; TEMP 98.5; O2SAT 94
[2017-11-28 07:42] VITALS: BP 137/72; PULSE 71; RESP 20; TEMP 98.4; O2SAT 95
[2017-11-28] MEDS: SODIUM CHLOR 0.45% 1000 ML INJ 1,000 ML IV SCH (08:50)
--- NOTE | 2017-11-28 08:58 | HHI.PR ---
Subjective Remarks Pt reports that for the last two days he had difficulty taking some pills and felt like they became stuck and since then he has not been tolerating his secretions and has not been able to eat or drink anything. His also reports that the patient has seemed more confused the last few days and the family is concerned about a possible UTI. Objective Vitals Vital Signs Date Time Temp Pulse Resp B/P (MAP) Pulse Ox O2 Delivery O2 Flow Rate FiO2 11/28/17 07:42 98.4 71 20 137/72 (93) 95 11/28/17 05:25 98.5 78 16 117/79 (92) 94 11/28/17 01:17 97.5 76 16 125/84 (98) 92 11/27/17 16:33 97.6 85 16 116/74 (88) 96 Result Diagram: 11/27/17 1730 11/27/17 1730 Other Results Laboratory Tests Test 11/27/17 17:30 White Blood Count 7.9 TH/MM3 Red Blood Count 4.12 MIL/MM3 Hemoglobin 13.6 GM/DL Hematocrit 39.0 % Mean Corpuscular Volume 94.7 FL Mean Corpuscular Hemoglobin 33.0 PG Mean Corpuscular Hemoglobin Concent 34.9 % Red Cell Distribution Width 14.6 % Platelet Count 177 TH/MM3 Mean Platelet Volume 9.7 FL Neutrophils (%) (Auto) 70.7 % Lymphocytes (%) (Auto) 17.2 % Monocytes (%) (Auto) 10.8 % Eosinophils (%) (Auto) 0.7 % Basophils (%) (Auto) 0.6 % Neutrophils # (Auto) 5.6 TH/MM3 Lymphocytes # (Auto) 1.4 TH/MM3 Monocytes # (Auto) 0.9 TH/MM3 Eosinophils # (Auto) 0.1 TH/MM3 Basophils # (Auto) 0.0 TH/MM3 CBC Comment DIFF FINAL Differential Comment Prothrombin Time 11.4 SEC Prothromb Time International Ratio 1.1 RATIO Activated Partial Thromboplast Time 32.0 SEC Blood Urea Nitrogen 13 MG/DL Creatinine 1.03 MG/DL Random Glucose 107 MG/DL Total Protein 7.1 GM/DL Albumin 3.5 GM/DL Calcium Level 8.8 MG/DL Alkaline Phosphatase 86 U/L Aspartate Amino Transf (AST/SGOT) 14 U/L Alanine Aminotransferase (ALT/SGPT) 7 U/L Total Bilirubin 1.0 MG/DL Sodium Level 141 MEQ/L Potassium Level 4.4 MEQ/L Chloride Level 108 MEQ/L Carbon Dioxide Level 24.4 MEQ/L Anion Gap 9 MEQ/L Estimat Glomerular Filtration Rate 68 ML/MIN Imaging Last 24 hours Impressions Chest X-Ray 11/27/17 0000 Signed Impressions: Service Date/Time: Saturday, November 27, 2017 17:08 - CONCLUSION: No acute disease. Ramiro Pritchett Jr., MD Objective Remarks General: NAD, Awake and alert Chest: CTA Cardiac: Regular Abd: regular Abd: +BS, soft ND/NT Ext: No edema A/P Problem List: (1) Dysphagia ICD Codes: R13.10 - Dysphagia, unspecified Status: Acute Plan: - Pt is an 87 y/o male with hx of aspiration, esophageal stricture who previously has undergone EGD with dilation several times in the last 2 years, last one in March 2017. - He presented to the ED with complaints of dysphagia and difficulty with tolerating his secretions for the last 2 days after taking some pills and feeling as if the pills became stuck in the mid esophagus. - CXR at admission was negative. - GI has been consulted and case was discussed last night with Dr. Ocampo - Pt planned for EGD with possible dilation today - NPO - IV PPI - IVF - Supportive care (2) Afib ICD Codes: I48.91 - Unspecified atrial fibrillation Plan: - Pts home meds Atenolol po daily was continued but pt not tolerating secretions currently - Pts Pradaxa was held last night - HR stable on telemetry, pt in NSR currently (3) Parkinson disease ICD Codes: G20 - Parkinson's disease Plan: - Pts home meds continued but currently not tolerating secretions - Will resume after EGD and once able to swallow without any s/s of aspiration - Check UA as pts family feels that he may be somewhat more confused recently Assessment and Plan Patient examined. Assessment and plan formulated with Jeanie Alonso PA-C. I agree with the above. dysphagia. esophageal stricture. dilation today. still with alot of oral secretions. no respiratory distress. advance diet slowly. pt spitting up small amt blood. ambulate. updated family. Jeanie Alonso Nov 28, 2017 08:58 Leonel Nicole MD Nov 28, 2017 14:22
[2017-11-28] MEDS: amLODIPine BESYLATE 5 MG TAB PO SCH ×2 (09:00→21:00)
[2017-11-28] MEDS: ATENOLOL 25 MG TAB PO SCH (09:00)
[2017-11-28] MEDS: CHOLECALCIFEROL (VIT D3) 1000 UNIT TAB PO SCH (09:00)
[2017-11-28] MEDS: DOCUSATE SODIUM 50 MG/SENNA 8.6 MG TAB PO SCH ×2 (09:00→21:00)
[2017-11-28] MEDS: MEMANTINE HCL 10 MG TAB PO SCH ×2 (09:00→21:00)
[2017-11-28] MEDS: SODIUM CHLORIDE 0.9% FLUSH 10 ML FLUSH IV FLUSH SCH ×2 (09:00→21:00)
[2017-11-28] MEDS: PANTOPRAZOLE SODIUM 40 MG VIAL IV PUSH SCH ×2 (09:03→22:48)
--- NOTE | 2017-11-28 11:51 | GIPROC ---
[facility] [address] [facility]. [facility], [id number] EGD PROCEDURE REPORT EXAM DATE: 11/28/2017 PATIENT NAME: Gil Shaw MR #: [id number] BIRTHDATE: 1930 ATTENDING: Monica Ocampo MD ORDER #: [id number] BOTTLE PACKING MACHINE CLEANER: Magaly Alba and Pamela Kahn STATUS: inpatient INDICATIONS: The patient is a 87 yr old male here for an EGD due to dysphagia PROCEDURE PERFORMED: EGD w/ balloon dilation of esophagus MEDICATIONS: None and Per Anesthesia. TOPICAL ANESTHETIC: none CONSENT: The patient understands the risks and benefits of the procedure and understands that these risks include, but are not limited to: sedation, allergic reaction, infection, perforation and/or bleeding. Alternative means of evaluation and treatment include, among others: physical exam, x-rays, and/or surgical intervention. The patient elects to proceed with this endoscopic procedure. medical equipment was checked for proper function. Hand hygiene and appropriate measures for infection prevention was taken. After the risks, benefits and alternatives of the procedure were thoroughly explained, Informed consent was verified, confirmed and timeout was successfully executed by the treatment team. The patient was anesthetized with topical anesthesia and the Pentax [id number] endoscope was introduced through the mouth and advanced to the second portion of the duodenum. Retroflexion was performed and was normal The gastroscope was then slowly withdrawn and removed. ESOPHAGUS: A moderately severe Schatzki ring was found in the distal esophagus and was barely passable by the endoscope used. Using a TTS-balloon the stricture was dilated up to 15mm. The balloon was held inflated for 30 seconds. Following this dilation, there was no change in the appearance of the stricture. Using a TTS-balloon the stricture was dilated up to 16mm. The balloon was held inflated for 30 seconds. Following this dilation, there was a small mucosal rent. ADVERSE EVENTS: There were no complications. IMPRESSIONS: 1. Schatzki ring was found in the distal esophagus; Using a TTS-balloon the stricture was dilated up to 15mm; The balloon was held inflated for 30 seconds; Following this dilation, there was no change in the appearance of the stricture , followed by 16 mm with minor mucosal rent. 2. Retroflexion was performed and was normal RECOMMENDATIONS: Dilatations PRN PATIENT CONDITION: stable DISPOSITION: Observation REPEAT EXAM: Return as needed for Dilatation Monica Ocampo MD eSigned: Monica Ocampo MD 11/28/2017 11:51 AM cc: PATIENT NAME: Gil Shaw Roselyn MR#: [id number]
[2017-11-28] MEDS ORDERED: PROPOFOL 200 MG/20 ML AMP IV ONE (12:00)
[2017-11-28] MEDS ORDERED: LIDOCAINE HCL 1% PF 5 ML SYRINGE OTHER ONE (12:00)
--- NOTE | 2017-11-28 12:17 | PD.CONS ---
HPI History of Present Illness This is a 87 year old male who presented to ER with dysphagia. He has had difficulty swallowing with coughing and regurgitation for the last 3 weeks. It has worsened in the last 3 days after he took a bunch of pills at once. he is also having a burning sensation in his throat. He is now unable to swallow liquids or solids and cannot swallow his own secretions, he just regurgitates or coughs them back up. He had an EGD and dilatation 03/[address] Campos and finding of gastritis, schatzki ring, spatic pylorus, poss zarina, pooling secretions pharynx, hiatal hernia. he takes Pradaxa for AF but has not had this in 4 days. Denies abd pain, painful swallowing, n/v, blood in stool. Delayed entry, pt seen @ 0900. (Catherine Traylor) PFSH Past Medical History AF Parkinsons Dementia Past Surgical History appendectomy TURP retinal surgery (Catherine Traylor) Coded Allergies: Sulfa (Sulfonamide Antibiotics) (Verified Allergy, Severe, MIGRAINES, RED EYES, 11/28/17) Family History none Social History occasional etoh no tobacco or illicit drug use (Catherine Traylor) Review of Systems Constitutional: DENIES: Fever Endocrine: DENIES: Polydipsia Ears, nose, mouth, throat: DENIES: Hearing loss Respiratory: DENIES: Cough Cardiovascular: DENIES: Chest pain Gastrointestinal: COMPLAINS OF: Difficulty Swallowing, DENIES: Abdominal pain, Black stools, Bloody stools, Nausea, Vomiting, Hematemesis Genitourinary: DENIES: Urinary frequency Musculoskeletal: DENIES: Muscle aches Integumentary: DENIES: Abnormal pigmentation Hematologic/lymphatic: DENIES: Bruising Immunologic/allergic: DENIES: Eczema Neurologic: DENIES: Headache Psychiatric: DENIES: Anxiety (Catherine Traylor) GI Exam Vitals I&O Vital Signs Date Time Temp Pulse Resp B/P (MAP) Pulse Ox O2 Delivery O2 Flow Rate FiO2 11/28/17 07:42 98.4 71 20 137/72 (93) 95 11/28/17 05:25 98.5 78 16 117/79 (92) 94 11/28/17 01:17 97.5 76 16 125/84 (98) 92 11/27/17 16:33 97.6 85 16 116/74 (88) 96 I/O 11/27/17 11/27/17 11/27/17 11/28/17 11/28/17 11/28/17 07:00 15:00 23:00 07:00 15:00 23:00 Intake Total 1000 ml 1010 ml 400 ml Balance 1000 ml 1010 ml 400 ml Intake Oral 210 ml IV Total 1000 ml 800 ml Other 400 ml Imaging Last Impressions Chest X-Ray 11/27/17 0000 Signed Impressions: Service Date/Time: Monday, November 27, 2017 17:08 - CONCLUSION: No acute disease. Ramiro Pritchett Jr., MD Laboratory Test 11/27/17 17:30 White Blood Count 7.9 TH/MM3 Red Blood Count 4.12 MIL/MM3 Hemoglobin 13.6 GM/DL Hematocrit 39.0 % Mean Corpuscular Volume 94.7 FL Mean Corpuscular Hemoglobin 33.0 PG Mean Corpuscular Hemoglobin Concent 34.9 % Red Cell Distribution Width 14.6 % Platelet Count 177 TH/MM3 Mean Platelet Volume 9.7 FL Neutrophils (%) (Auto) 70.7 % Lymphocytes (%) (Auto) 17.2 % Monocytes (%) (Auto) 10.8 % Eosinophils (%) (Auto) 0.7 % Basophils (%) (Auto) 0.6 % Neutrophils # (Auto) 5.6 TH/MM3 Lymphocytes # (Auto) 1.4 TH/MM3 Monocytes # (Auto) 0.9 TH/MM3 Eosinophils # (Auto) 0.1 TH/MM3 Basophils # (Auto) 0.0 TH/MM3 CBC Comment DIFF FINAL Differential Comment Prothrombin Time 11.4 SEC Prothromb Time International Ratio 1.1 RATIO Activated Partial Thromboplast Time 32.0 SEC Blood Urea Nitrogen 13 MG/DL Creatinine 1.03 MG/DL Random Glucose 107 MG/DL Total Protein 7.1 GM/DL Albumin 3.5 GM/DL Calcium Level 8.8 MG/DL Alkaline Phosphatase 86 U/L Aspartate Amino Transf (AST/SGOT) 14 U/L Alanine Aminotransferase (ALT/SGPT) 7 U/L Total Bilirubin 1.0 MG/DL Sodium Level 141 MEQ/L Potassium Level 4.4 MEQ/L Chloride Level 108 MEQ/L Carbon Dioxide Level 24.4 MEQ/L Anion Gap 9 MEQ/L Estimat Glomerular Filtration Rate 68 ML/MIN Physical Examination HEENT: PERRL; normocephalic; atraumatic; no jaundice. CHEST: CTA CARDIAC: irregular HR ABDOMEN: Soft, nondistended, nontender; no hepatosplenomegaly; bowel sounds are present in all four quadrants. EXTREMITIES: No clubbing, cyanosis, or edema. SKIN: Normal; no rash; no jaundice. 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 (Catherine Traylor) Assessment and Plan Plan ASSESSMENT - dysphagia - poss stricture, has hx of this. coughing and regurgitating with liquids and solids, cannot swallow secretions. had EGD and dilatation 03/2017 found gastritis, schatzki ring, spastic pylorus poss zarina, pooling secretions pharynx, hiatal hernia. Had 2nd dilatation 06/2017. on pradaxa but has not had it in 4 days s/p EGD found schatzki ring, s/p dilatation today PLAN - liquid diet, advance as tolerated - had EGD with dilatation today - ok to d/c from GI standpoint when tolerating diet pt seen by myself and dr Ocampo and this note is on his behalf (Catherine Traylor) Physician Comments Seen and examined, plan as above. Thank you for the consult. (Monica Ocampo MD) Catherine Traylor Nov 28, 2017 12:16 Monica Ocampo MD Nov 28, 2017 12:47
--- NOTE | 2017-11-28 12:59 | RADRPT ---
EXAM DATE/TIME: 11/28/2017 12:26 [facility] COMPARISON: CHEST SINGLE AP, November 27, 2017, 17:08. INDICATIONS : Congestion, cough post EGD w/ dilatation. MEDICAL HISTORY : Gastroesophageal reflux disease. Hypertension Myocardial infarction SURGICAL HISTORY : None. ENCOUNTER: Initial ACUITY: 1 day PAIN SCORE: 0/10 LOCATION: Bilateral chest FINDINGS: The examination demonstrates atelectasis and infiltrate in the left lung base. This is new compared t o previous. The right lung is clear. The heart is normal in size. The mediastinal contour is within normal limits. There degenerative changes in the osseous structures. CONCLUSION: 1. Left basilar atelectasis. River Nguyen MD on November 28, 2017 at 12:57 Board Certified Radiologist. This report was verified electronically.
[2017-11-28 13:59] LABS: BILIRUBIN, URINE NEG (NEG); BLOOD, URINE NEG (NEG); GLUCOSE,URINE NEG (NEG); KETONE, URINE TRACE mg/dL (NEG); MUCUS URINE FEW /lpf (OCC); NITRITE,URINE NEG (NEG); PH, URINE 5.5 (5.0-8.5); URINE COLOR YELLOW (YELLW/STRAW); URINE LEUKOCYTE ESTERASE NEG (NEG)
[2017-11-28 16:58] VITALS: BP 134/89; PULSE 80; RESP 20; TEMP 98.1; O2SAT 96
[2017-11-28] MEDS ORDERED: CARB25TA12 PO (17:24)
[2017-11-28] MEDS: CARBIDOPA/LEVODOPA 25 MG/250 MG TAB PO SCH (18:00)
[2017-11-28 21:22] VITALS: BP 136/74; PULSE 83; RESP 18; TEMP 98.2; O2SAT 93
[2017-11-28 23:55] VITALS: PULSE 79
[2017-11-29] VITALS (9 sets, daily range): BP systolic 113–133; BP diastolic 57–83; PULSE 66–84; RESP 12–20; TEMP 96.3–98.1; O2SAT 93–96
[2017-11-29] MEDS: SODIUM CHLOR 0.45% 1000 ML INJ 1,000 ML IV SCH (03:37)
[2017-11-29] MEDS: PANTOPRAZOLE SODIUM 40 MG VIAL IV PUSH SCH ×2 (08:24→20:28)
[2017-11-29 09:02] LABS: AUTOMATED NEUTROPHIL # 5.7 TH/MM3 (1.8-7.7); BASOPHIL % 0.3 % (0.0-2.0); EOSINOPHIL # 0.1 TH/MM3 (0-0.4); EOSINOPHIL % 1.5 % (0.0-4.0); HEMATOCRIT 38.3 % (39.0-51.0); HEMOGLOBIN 13.6 GM/DL (13.0-17.0); LYMPH % 15.1 % (9.0-44.0); LYMPHOCYTE # 1.2 TH/MM3 (1.0-4.8); MEAN CELL VOLUME 94.7 FL (80.0-100.0); MEAN CORPUSCULAR HEMOGLOBIN 33.6 PG (27.0-34.0); MEAN CORPUSCULAR HGB CONC 35.5 % (32.0-36.0); MEAN PLATELET VOLUME 9.3 FL (7.0-11.0); MONO % 10.7 % (0.0-8.0); MONOCYTE # 0.8 TH/MM3 (0-0.9); NEUT % 72.4 % (16.0-70.0); PLATELET COUNT 154 TH/MM3 (150-450); RED BLOOD COUNT 4.04 MIL/MM3 (4.50-5.90); RED CELL DISTRIBUTION WIDTH 14.3 % (11.6-17.2); WHITE BLOOD COUNT 7.8 TH/MM3 (4.0-11.0)
[2017-11-29 09:45] LABS: BICARBONATE 23.4 MEQ/L (21.0-32.0); CREATININE 0.74 MG/DL (0.60-1.30); MAGNESIUM 1.8 MG/DL (1.5-2.5)
--- NOTE | 2017-11-29 09:59 | HHI.PR ---
Subjective Remarks Pts daughter at bedside reports that the pt is still having issues with his secretions and coughing up a lot of phlegm. He did eat some grits this morning without much difficulty initially but then seemed to have some coughing and bringing up a lot of sputum Then he tried to drink some ensure a bit later and had difficulty initiating a swallow Objective Vitals Vital Signs Date Time Temp Pulse Resp B/P (MAP) Pulse Ox O2 Delivery O2 Flow Rate FiO2 11/29/17 08:50 98.1 78 20 133/83 (100) 96 11/29/17 04:31 75 11/29/17 03:04 97.7 84 18 132/79 (96) 93 11/28/17 23:55 79 11/28/17 21:22 98.2 83 18 136/74 (94) 93 11/28/17 16:58 98.1 80 20 134/89 (104) 96 11/28/17 12:30 80 18 95 11/28/17 12:06 97.0 76 18 120/75 (90) 90 Result Diagram: 11/29/17 0849 11/29/17 0849 Other Results Laboratory Tests Test 11/27/17 17:30 11/28/17 13:38 11/29/17 08:49 White Blood Count 7.9 TH/MM3 7.8 TH/MM3 Red Blood Count 4.12 MIL/MM3 4.04 MIL/MM3 Hemoglobin 13.6 GM/DL 13.6 GM/DL Hematocrit 39.0 % 38.3 % Mean Corpuscular Volume 94.7 FL 94.7 FL Mean Corpuscular Hemoglobin 33.0 PG 33.6 PG Mean Corpuscular Hemoglobin Concent 34.9 % 35.5 % Red Cell Distribution Width 14.6 % 14.3 % Platelet Count 177 TH/MM3 154 TH/MM3 Mean Platelet Volume 9.7 FL 9.3 FL Neutrophils (%) (Auto) 70.7 % 72.4 % Lymphocytes (%) (Auto) 17.2 % 15.1 % Monocytes (%) (Auto) 10.8 % 10.7 % Eosinophils (%) (Auto) 0.7 % 1.5 % Basophils (%) (Auto) 0.6 % 0.3 % Neutrophils # (Auto) 5.6 TH/MM3 5.7 TH/MM3 Lymphocytes # (Auto) 1.4 TH/MM3 1.2 TH/MM3 Monocytes # (Auto) 0.9 TH/MM3 0.8 TH/MM3 Eosinophils # (Auto) 0.1 TH/MM3 0.1 TH/MM3 Basophils # (Auto) 0.0 TH/MM3 0.0 TH/MM3 CBC Comment DIFF FINAL DIFF FINAL Differential Comment Prothrombin Time 11.4 SEC Prothromb Time International Ratio 1.1 RATIO Activated Partial Thromboplast Time 32.0 SEC Blood Urea Nitrogen 13 MG/DL 10 MG/DL Creatinine 1.03 MG/DL 0.74 MG/DL Random Glucose 107 MG/DL 83 MG/DL Total Protein 7.1 GM/DL Albumin 3.5 GM/DL Calcium Level 8.8 MG/DL 9.0 MG/DL Alkaline Phosphatase 86 U/L Aspartate Amino Transf (AST/SGOT) 14 U/L Alanine Aminotransferase (ALT/SGPT) 7 U/L Total Bilirubin 1.0 MG/DL Sodium Level 141 MEQ/L 137 MEQ/L Potassium Level 4.4 MEQ/L 3.6 MEQ/L Chloride Level 108 MEQ/L 105 MEQ/L Carbon Dioxide Level 24.4 MEQ/L 23.4 MEQ/L Anion Gap 9 MEQ/L 9 MEQ/L Estimat Glomerular Filtration Rate 68 ML/MIN 100 ML/MIN Urine Color YELLOW Urine Turbidity CLEAR Urine pH 5.5 Urine Specific [place] 1.012 Urine Protein NEG mg/dL Urine Glucose (UA) NEG mg/dL Urine Ketones TRACE mg/dL Urine Occult Blood NEG Urine Nitrite NEG Urine Bilirubin NEG Urine Urobilinogen LESS THAN 2.0 MG/DL Urine Leukocyte Esterase NEG Urine RBC 1 /hpf Urine WBC LESS THAN 1 /hpf Urine Mucus FEW /lpf Microscopic Urinalysis Comment CULT NOT INDICATED Magnesium Level 1.8 MG/DL Imaging Last 24 hours Impressions Chest X-Ray 11/27/17 0000 Signed Impressions: Service Date/Time: Monday, November 27, 2017 17:08 - CONCLUSION: No acute disease. Ramiro Pritchett Jr., MD Objective Remarks General: NAD, Awake and alert Chest: CTA Cardiac: Regular Abd: regular Abd: +BS, soft ND/NT Ext: No edema A/P Problem List: (1) Dysphagia ICD Codes: R13.10 - Dysphagia, unspecified Status: Acute Plan: - Pt is an 87 y/o male with hx of aspiration, esophageal stricture who previously has undergone EGD with dilation several times in the last 2 years, last one in March 2017. - He presented to the ED with complaints of dysphagia and difficulty with tolerating his secretions for the last 2 days after taking some pills and feeling as if the pills became stuck in the mid esophagus. - CXR at admission was negative. - GI has been consulted and case was discussed last night with Dr. Ocampo - Pt underwent EGD with dilation on 11/28 --> Schatzki ring was found in the distal esophagus and using a TTS-balloon the stricture was dilated up to 15mm; The balloon was held inflated for 30 seconds; Following this dilation, there was no change in the appearance of the stricture, followed by 16 mm with minor mucosal rent. - ST evaluation is pending. - Pt is on full liquid diet with orders to advance as tolerated per GI - Pt still having some issues with swallowing this morning. - IV PPI - Supportive care (2) Afib ICD Codes: I48.91 - Unspecified atrial fibrillation Plan: - Pts home meds Atenolol po daily was continued but pt not tolerating oral intake - Pts Pradaxa was held last night, family reports that the pt has not received is Pradaxa for 2 days prior to admission - HR stable on telemetry, pt in NSR currently (3) Parkinson disease ICD Codes: G20 - Parkinson's disease Plan: - Pts home meds continued - UA checked per family request as they felt that he may be somewhat more confused recently - UA was negative. Assessment and Plan Patient examined. Assessment and plan formulated with Jeanie Alonso PA-C. I agree with the above. severe esophageal stricture. not responding well to dilation modify diet/position. try bid ppi. try levsin trial as pt and family are frustrated and may not be any further procedures that can be done. check with GI for any further intervention. peg would not solve the severe secretions building up even when not eating. Jeanie Alonso Nov 29, 2017 09:59 Leonel Nicole MD Nov 29, 2017 12:15
[2017-11-29] MEDS: DOCUSATE SODIUM 50 MG/SENNA 8.6 MG TAB PO SCH ×2 (10:39→20:28)
[2017-11-29] MEDS: MEMANTINE HCL 10 MG TAB PO SCH ×2 (10:39→20:28)
[2017-11-29] MEDS: ATENOLOL 25 MG TAB PO SCH (10:39)
[2017-11-29] MEDS: amLODIPine BESYLATE 5 MG TAB PO SCH ×2 (10:40→20:28)
[2017-11-29] MEDS: CARBIDOPA/LEVODOPA 25 MG/250 MG TAB PO SCH ×3 (10:40→18:35)
[2017-11-29] MEDS: CHOLECALCIFEROL (VIT D3) 1000 UNIT TAB PO SCH (10:40)
[2017-11-29] MEDS: SODIUM CHLORIDE 0.9% FLUSH 10 ML FLUSH IV FLUSH SCH ×2 (10:40→20:40)
[2017-11-29] MEDS ORDERED: HYOSCYAMINE 0.125 MG TAB PO SCH (12:00)
--- NOTE | 2017-11-29 12:40 | HHI.GIFU ---
Subjective Remarks resting in the bed family in Patient constantly spitting saliva/mucous in container. Denies any nausea, Abdominal pain pale (Juli Lizarraga) Objective Vitals I&O Vital Signs Date Time Temp Pulse Resp B/P (MAP) Pulse Ox O2 Delivery O2 Flow Rate FiO2 11/29/17 08:50 98.1 78 20 133/83 (100) 96 11/29/17 04:31 75 11/29/17 03:04 97.7 84 18 132/79 (96) 93 11/28/17 23:55 79 11/28/17 21:22 98.2 83 18 136/74 (94) 93 11/28/17 16:58 98.1 80 20 134/89 (104) 96 I/O 11/28/17 11/28/17 11/28/17 11/29/17 11/29/17 11/29/17 07:00 15:00 23:00 07:00 15:00 23:00 Intake Total 1010 ml 1350 ml Balance 1010 ml 1350 ml Intake Oral 210 ml IV Total 800 ml 950 ml Other 400 ml # Voids 2 # Bowel Movements 0 Laboratory Laboratory Tests Test 11/28/17 13:38 11/29/17 08:49 Urine Color YELLOW Urine Turbidity CLEAR Urine pH 5.5 Urine Specific [place] 1.012 Urine Protein NEG Urine Glucose (UA) NEG Urine Ketones TRACE Urine Occult Blood NEG Urine Nitrite NEG Urine Bilirubin NEG Urine Urobilinogen LESS THAN 2.0 Urine Leukocyte Esterase NEG Urine RBC 1 Urine WBC LESS THAN 1 Urine Mucus FEW Microscopic Urinalysis Comment CULT NOT INDICATED White Blood Count 7.8 Red Blood Count 4.04 Hemoglobin 13.6 Hematocrit 38.3 Mean Corpuscular Volume 94.7 Mean Corpuscular Hemoglobin 33.6 Mean Corpuscular Hemoglobin Concent 35.5 Red Cell Distribution Width 14.3 Platelet Count 154 Mean Platelet Volume 9.3 Neutrophils (%) (Auto) 72.4 Lymphocytes (%) (Auto) 15.1 Monocytes (%) (Auto) 10.7 Eosinophils (%) (Auto) 1.5 Basophils (%) (Auto) 0.3 Neutrophils # (Auto) 5.7 Lymphocytes # (Auto) 1.2 Monocytes # (Auto) 0.8 Eosinophils # (Auto) 0.1 Basophils # (Auto) 0.0 CBC Comment DIFF FINAL Differential Comment Blood Urea Nitrogen 10 Creatinine 0.74 Random Glucose 83 Calcium Level 9.0 Magnesium Level 1.8 Sodium Level 137 Potassium Level 3.6 Chloride Level 105 Carbon Dioxide Level 23.4 Anion Gap 9 Estimat Glomerular Filtration Rate 100 Imaging Last Impressions Chest X-Ray 11/28/17 0000 Signed Impressions: Service Date/Time: November 12:26 - CONCLUSION: 1. Left basilar atelectasis. River Nguyen MD Physical Exam HEENT: Pupils round and reactive to light; normocephalic; atraumatic; no jaundice.pale Oral secretions, spitting in basin. NECK: Neck is supple, obese CHEST: Diminished BS bases, Lt > Rt. CARDIAC: Regular rate and rhythm ABDOMEN: large, round, Soft, mild bloating, nontender; no hepatosplenomegaly; bowel sounds are present in all four quadrants. EXTREMITIES: No clubbing, cyanosis, or edema. SKIN: pale, no rash; no jaundice. 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 (Juli Lizarraga) Assessment and Plan Plan ASSESSMENT - dysphagia - poss stricture, has hx of this. coughing and regurgitating with liquids and solids, cannot swallow secretions. had EGD and dilatation 03/2017 found gastritis, schatzki ring, spastic pylorus poss zarina, pooling secretions pharynx, hiatal hernia. Had 2nd dilatation 06/2017. on pradaxa but has not had it in 4 days s/p EGD 11/28/17 2 dilatations, found schatzki ring, s/p dilatation today, no complications. Distal esophagus Schatzki ring, dilated up to 15 mm, balloon held for 30 seconds. No change in stricture. redilated by 16 mm minor mucosal rent. Before discharge family requesting to speak to Dr. Ocampo further recommendations of care. Patient's main issue appears to be more secretion control, swallow saliva/ mucous. Working with speech therapist today PLAN - Speech therapy, recommend nectar thick liquids, chopped meats very small pieces, mechanical soft - Spoke with family and patient, no milk or feeding products if increased mucous , or cant clear after swallow. - Dilatations as needed - Hyoscyamine liquid 0.125 mg by mouth every 4 hours, hold if mouth becomes to dry. - Supportive care - Instructions to patient and family sitting patient straight up to eat and leaning forward for swallow pt seen by myself and dr Ocampo and this note is on his behalf (Juli Lizarraga) Physician Comments As above, will follow up with you. Check speech eval. (Monica Ocampo MD) Juli Lizarraga Nov 29, 2017 12:40 Monica Ocampo MD Nov 29, 2017 15:45
[2017-11-29] MEDS: HYOSCYAMINE SOLN 0.125 MG/ML 15 ML BTL PO SCH ×4 (14:19→23:43)
[2017-11-30 04:00] VITALS: PULSE 82
[2017-11-30] MEDS: HYOSCYAMINE SOLN 0.125 MG/ML 15 ML BTL PO SCH ×3 (04:00→11:48)
[2017-11-30 04:45] VITALS: BP 149/80; PULSE 83; RESP 17; TEMP 96.9; O2SAT 94
[2017-11-30 08:00] VITALS: BP 128/77; PULSE 77; RESP 18; TEMP 96.7; O2SAT 96
[2017-11-30] MEDS: PANTOPRAZOLE SODIUM 40 MG VIAL IV PUSH SCH (08:58)
[2017-11-30] MEDS: CARBIDOPA/LEVODOPA 25 MG/250 MG TAB PO SCH ×2 (08:59→12:15)
[2017-11-30] MEDS: DOCUSATE SODIUM 50 MG/SENNA 8.6 MG TAB PO SCH (08:59)
[2017-11-30] MEDS: MEMANTINE HCL 10 MG TAB PO SCH (08:59)
[2017-11-30] MEDS: ATENOLOL 25 MG TAB PO SCH (08:59)
[2017-11-30] MEDS: amLODIPine BESYLATE 5 MG TAB PO SCH (08:59)
[2017-11-30] MEDS: CHOLECALCIFEROL (VIT D3) 1000 UNIT TAB PO SCH (09:00)
[2017-11-30] MEDS: SODIUM CHLORIDE 0.9% FLUSH 10 ML FLUSH IV FLUSH SCH (09:00)
--- NOTE | 2017-11-30 10:34 | HHI.GIFU ---
Subjective Remarks pt is resting in bed accompanied by family, doing good tolerating diet okay, no dysphagia reported (Angelique Dorman) Objective Vitals I&O Vital Signs Date Time Temp Pulse Resp B/P (MAP) Pulse Ox O2 Delivery O2 Flow Rate FiO2 11/30/17 08:00 96.7 77 18 128/77 (94) 96 11/30/17 04:45 96.9 83 17 149/80 (103) 94 11/30/17 04:00 82 11/29/17 23:54 78 11/29/17 23:49 96.8 74 17 113/57 (75) 93 11/29/17 20:15 96.8 77 18 115/68 (84) 93 11/29/17 20:00 74 11/29/17 15:51 96.3 68 19 115/65 (82) 95 11/29/17 12:53 97.4 66 12 114/73 (87) 93 I/O 11/29/17 11/29/17 11/29/17 11/30/17 11/30/17 11/30/17 07:00 15:00 23:00 07:00 15:00 23:00 Intake Total 240 ml 240 ml Balance 240 ml 240 ml Intake Oral 240 ml 240 ml # Voids 2 1 2 # Bowel Movements 0 0 1 Physical Exam HEENT: Pupils round and reactive to light; normocephalic; atraumatic; no jaundice.pale Oral secretions, spitting in basin. NECK: Neck is supple, obese CHEST: Diminished BS bases, CARDIAC: Regular rate and rhythm ABDOMEN: large, round, Soft, mild bloating, nontender; no hepatosplenomegaly; bowel sounds are present in all four quadrants. EXTREMITIES: No clubbing, cyanosis, or edema. SKIN: pale, no rash; no jaundice. 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 (Angelique Dorman) Assessment and Plan Plan ASSESSMENT - dysphagia - poss stricture, has hx of this. coughing and regurgitating with liquids and solids, cannot swallow secretions. had EGD and dilatation 03/2017 found gastritis, schatzki ring, spastic pylorus poss zarina, pooling secretions pharynx, hiatal hernia. Had 2nd dilatation 06/2017. on pradaxa but has not had it in 4 days s/p EGD 11/28/17 2 dilatations, found schatzki ring, s/p dilatation today, no complications. Distal esophagus Schatzki ring, dilated up to 15 mm, balloon held for 30 seconds. No change in stricture. redilated by 16 mm minor mucosal rent. s/p ST eval who recommended mechanical soft and thin liquid, pt seems to be good today no dysphagia PLAN - ST eval who recommended mechanical soft and thin liquid - Dilatations as needed - GI will sign off - Instructions to patient and family sitting patient straight up to eat and leaning forward for swallow pt seen by myself and dr Ocampo and this note is on his behalf (Angelique Dorman) Physician Comments Agree with above assessment and plan. Dilatation PRN and follow up at [facility] as outpatient. (Monica Ocampo MD) Angelique Dorman Nov 30, 2017 10:34 Monica Ocampo MD Nov 30, 2017 12:24
--- NOTE | 2017-11-30 10:47 | HHI.DCPOC ---
Discharge Care Plan Diagnosis: (1) Esophageal stricture Goals to Promote Your Health * To prevent worsening of your condition and complications * To maintain your health at the optimal level Directions to Meet Your Goals Take your medications as prescribed Follow your dietary instruction Follow activity as directed Keep your appointments as scheduled Take your immunizations and boosters as scheduled If your symptoms worsen call your PCP, if no PCP go to Urgent Care Center or Emergency Room Smoking is Dangerous to Your Health. Avoid second hand smoke Call the 24-hour hour crisis hotline for domestic abuse at Leonel Nicole MD Nov 30, 2017 10:47
--- NOTE | 2017-11-30 10:48 | HHI.FF ---
Face to Face Verification Diagnosis: (1) Esophageal stricture (2) Parkinson disease (3) Generalized weakness (4) Dementia Physical Therapy Order: Evaluate and Treat, Improve ambulation Speech Therapy Order: To Improve: Swallowing Home Health Nursing Order: Medical education Signs/symptoms of disease process Medication education-adverse effect Nursing assessment with vital signs I have seen patient Gil Mauricio Jr Colin on 11/30/17. My clinical findings support the need for the requested home health care services because: Limited ability to care for self I certify that my clinical findings support that this patient is homebound because: Impaired cognitive ability/safety Leonel Nicole MD Nov 30, 2017 10:48
[2017-11-30] MEDS ORDERED: HYOS0.1231 PO (10:53)
--- NOTE | 2017-11-30 10:55 | HHI.DS ---
Discharge Summary Admission Date Nov 27, 2017 at 18:36 Discharge Date: Nov 30, 2017 Admitting Diagnosis dysphagia (1) Esophageal stricture Diagnosis: Principal ICD Codes: K22.2 - Esophageal stricture Status: Chronic (2) Dysphagia Diagnosis: Principal ICD Codes: R13.10 - Dysphagia, unspecified Status: Acute (3) Afib Diagnosis: Secondary ICD Codes: I48.91 - Unspecified atrial fibrillation (4) Parkinson disease Diagnosis: Secondary ICD Codes: G20 - Parkinson's disease Brief History 87-year-old male presents to the emergency department for evaluation of possible esophageal stricture. Patient states that since yesterday morning, he has been unable to keep any food or liquid down. He will swallow and cough it right back up. According to the family, he has been having trouble for the past couple weeks, but since yesterday morning has not been able to eat or drink anything. He denies any other symptoms or complaints. No headache. No fevers or chills. No chest pain or shortness breath. No abdominal pain. No nausea, vomiting, diarrhea. According to family, last time he had esophageal stricture they did a barium swallow and he wound up with pneumonia. ER discussed case with GI and they want admit for endoscopy in am with hx esophageal stricture. CBC/BMP: 11/29/17 0849 11/29/17 0849 Significant Findings Laboratory Tests Test 11/27/17 17:30 11/28/17 13:38 11/29/17 08:49 Red Blood Count 4.12 MIL/MM3 (4.50-5.90) 4.04 MIL/MM3 (4.50-5.90) Neutrophils (%) (Auto) 70.7 % (16.0-70.0) 72.4 % (16.0-70.0) Monocytes (%) (Auto) 10.8 % (0.0-8.0) 10.7 % (0.0-8.0) Activated Partial Thromboplast Time 32.0 SEC (24.3-30.1) Random Glucose 107 MG/DL (74-106) Aspartate Amino Transf (AST/SGOT) 14 U/L (15-37) Alanine Aminotransferase (ALT/SGPT) 7 U/L (12-78) Chloride Level 108 MEQ/L (98-107) Estimat Glomerular Filtration Rate 68 ML/MIN (>89) Urine Ketones TRACE mg/dL (NEG) Urine Mucus FEW /lpf (OCC) Hematocrit 38.3 % (39.0-51.0) Hospital Course (1) Dysphagia - Pt is an 87 y/o male with hx of aspiration, esophageal stricture who previously has undergone EGD with dilation several times in the last 2 years, last one in March 2017. - He presented to the ED with complaints of dysphagia and difficulty with tolerating his secretions for the last 2 days after taking some pills and feeling as if the pills became stuck in the mid esophagus. - CXR at admission was negative. - GI has been consulted and case was discussed with Dr. Ocampo - Pt underwent EGD with dilation on 11/28 --> Schatzki ring was found in the distal esophagus and using a TTS-balloon the stricture was dilated up to 15mm; The balloon was held inflated for 30 seconds; Following this dilation, there was no change in the appearance of the stricture, followed by 16 mm with minor mucosal rent. - ST evaluation initially required nectar thick liquid but then subsequently passed the test. will need mechanical soft diet/chopped meats and gravy..plus elevate head of bed and no eating just before lying down. family requested reevaluation by GI due to persistent severe secretion buildup. he will be on bid ppi and levsin which seems to help the secretions prn - (2) Afib ICD Codes: I48.91 - Unspecified atrial fibrillation Plan: - Pts home meds Atenolol po daily was continued but pt not tolerating oral intake - resume pradaxa - (3) Parkinson disease ICD Codes: G20 - Parkinson's disease Pt Condition on Discharge: Stable Discharge Disposition: Disch w/ Home Health Serv Discharge Instructions DIET: Follow Instructions for: As Tolerated, No Restrictions Speech Therapy-Diet Recommends: Mechanical Soft, Chopped Meat w/Gravy Additional Diet Instructions: mechanical soft. chopped meats and gravy. don't lye down immediately after meals Activities you can perform: Regular-No Restrictions Follow up Referrals: Gastroenterology - 2 Weeks with Arti Campos MD PCP Follow-up - 1 Week with verena mace New Medications: Hyoscyamine Liq Drops (Hyosyne Liq Drops) 0.125 Mg/Ml Soln 0.125 MG PO Q4HR PRN for INCREASED SECRETIONS for 30 Days, DROP 3 Refills Continued Medications: Amlodipine (Norvasc) 5 Mg Tab 5 MG PO BID for Blood Pressure Management, #30 TAB 0 Refills Atenolol (Atenolol) 25 Mg Tab 25 MG PO DAILY for Blood Pressure Management, #30 TAB Atorvastatin (Lipitor) 40 Mg Tab 40 MG PO HS for Cholesterol Management, #30 TAB 0 Refills Carbidopa-Levodopa (Carbidopa-Levodopa) 25-250 Mg Tab 0.5 TAB PO TID for Parkinson Disease Mgmt, #90 TAB 0 Refills taken at 0800, 1300, 1800 Cholecalciferol (Vitamin D3) 1,000 Unit Tab 1000 UNITS PO DAILY for Nutritional Supplement, #1 BOTTLE 0 Refills Dabigatran (Pradaxa) 150 Mg Cap 150 MG PO BID for Blood Clot Prevention, #0 CAP 0 Refills resume on 07/27 Memantine (Memantine) 10 Mg Tab 10 MG PO BID for Alzheimer's Dementia, TAB 0 Refills Pantoprazole (Pantoprazole) 40 Mg Tab 40 MG PO BID for Reflux, #30 TAB 0 Refills Leonel Nicole MD Nov 30, 2017 10:55
[2017-11-30 12:00] VITALS: BP 108/70; PULSE 73; RESP 17; TEMP 96.8; O2SAT 95
[2017-11-30] MEDS ORDERED: COMMODE 3-IN-11 MIS (13:06)
== END 2017-11-30 12:55 | disposition home or self-care (01) ==
LOC: NEPC 16:18 → NEDA 18:36 → NEPGCP 20:48 → N06A 11-29 15:41
PROVIDERS: ADMIT Hospitalist; ATTEND Hospitalist
DX: R13.10 Dysphagia, unspecified (principal); R11.2 Nausea with vomiting, unspecified; K22.2 Esophageal obstruction; R05 Cough; I48.91 Unspecified atrial fibrillation; I10 Essential (primary) hypertension; I25.2 Old myocardial infarction; G20 Parkinson's disease; E78.00 Pure hypercholesterolemia, unspecified; K21.9 Gastro-esophageal reflux disease without esophagitis; F03.90 Unspecified dementia, unspecified severity, without behavioral disturbance, psychotic disturbance, mood disturbance, and anxiety; M19.90 Unspecified osteoarthritis, unspecified site; Z79.899 Other long term (current) drug therapy; Z79.01 Long term (current) use of anticoagulants
CPT/HCPCS: 00731; 43249; 71045; 80048; 80053; 81001; 83735; 85025; 85610; 85730; 92526; 92610; 94150; 96361; 96374; 96376; 97110; 97116; 97161; 99285; C1726; C9113; G0378; G8987; G8988; G8996; G8997; G8998; J7030

== ENCOUNTER 2018-01-20 19:48 | Inpatient (IN) | payer MEDICARE ==
[~2018-01-20] VITALS: Ht 180.3 cm; Wt 87.2 kg
[~2018-01-20 19:48] MED LIST changes: +CARB25TA12 PO; +COMMODE 3-IN-11 MIS; -GALA24CA PO; +HYOS0.1231 PO; -NYST1000 SWISH-SWAL
[2018-01-20 19:51] VITALS: BP 153/78; PULSE 64; RESP 20; TEMP 97.7; O2SAT 94
[2018-01-20] MEDS ORDERED: ARIC23TA PO (20:03)
--- NOTE | 2018-01-20 20:14 | PD ---
HPI Chief Complaint: Bleeding Time Seen by Provider: 19:59 Travel History International Travel<30 days: No Contact w/Intl Traveler<30days: No Traveled to known affect area: No History of Present Illness HPI Patient comes emergency department with family complaining of bleeding from his penis that began around 10:00 this morning. Patient's reports that his depends had a wet collection of blood this morning around 10:00 and then had some dribbling throughout the day had a second episode of large amount of wet blood this afternoon and family decided to bring patient to the emergency department for further treatment and evaluation. Patient is on Pradaxa. Patient denies any pain with this or radiation of pain. Denies any fever, chest pain, shortness of breath, abdominal pain, dizziness, lightheadedness, back pain, or change in bowel movements is uncertain whether he had a bowel movement today or not. Patient reports having something happened to her room in the past and was secondary to prostatitis. Patient reports history of a TURP secondary to this. Severity mild. 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) GERD: Yes Genitourinary: No Hepatitis: No Hiatal Hernia: No Hypertension: Yes Immune Disorder: No Implanted Vascular Access Dvce: Yes Medical other: No Musculoskeletal: Yes (weakness while walking) Neurologic: Yes (choking and coughing and aspiration hx) Psychiatric: No Reproductive: No Respiratory: Yes (hx of aspiration and eosophageal dialation procedure) Radiation Therapy: No Sleep Apnea: No Thyroid Disease: No Past Surgical History Abdominal Surgery: No AICD: No Appendectomy: Yes Body Medical Devices: Right knee Cardiac Surgery: No Ear Surgery: No Eye Surgery: Yes (DETACHED RETINA REPAIR) Genitourinary Surgery: Yes Gynecologic Surgery: No Joint Replacement: Yes (R TKA) Neurologic Surgery: No Oral Surgery: No Pacemaker: No Prostatectomy: Yes (Partial) Thoracic Surgery: No Other Surgery: Yes (right knee replacement hx, dialation of eosophagus) Social History Alcohol Use: Yes (2-3 times weekly) Tobacco Use: No (QUIT 1965) Substance Use: No Allergies-Medications (Allergen,Severity, Reaction): Coded Allergies: Sulfa (Sulfonamide Antibiotics) (Verified Allergy, Severe, MIGRAINES, RED EYES, 01/20/18) Reported Meds & Prescriptions Reported Meds & Active Scripts Active Commode 3-in-1 (Device) 1 Mis Mis Ea .XX DIRECTED Hyosyne Liq Drops (Hyoscyamine Sulfate) 0.125 Mg/Ml Soln 0.125 Mg PO Q4HR PRN 30 Days Pradaxa (Dabigatran) 150 Mg Cap 150 Mg PO BID resume on 07/27 Reported Aricept (Donepezil) 23 Mg Tab 5 Mg PO HS Do not split, crushed or chewed. Carbidopa-Levodopa 25-250 Mg Tab 0.5 Tab PO TID taken at 0800, 1300, 1800 Vitamin D3 (Cholecalciferol) 1,000 Unit Tab 1,000 Units PO DAILY Pantoprazole (Pantoprazole Sodium) 40 Mg Tab 40 Mg PO BID Memantine 10 Mg Tab 10 Mg PO BID Norvasc (Amlodipine Besylate) 5 Mg Tab 5 Mg PO BID Lipitor (Atorvastatin Calcium) 40 Mg Tab 40 Mg PO HS Atenolol 25 Mg Tab 25 Mg PO DAILY Review of Systems Except as stated in HPI: all other systems reviewed are Neg Physical Exam Narrative GENERAL: Well-developed, overly nourished, in no acute distress, and non-ill appearing. SKIN: Focused skin assessment warm and dry. HEAD: Atraumatic. Normocephalic. EYES: Pupils equal and round. EOMI. No scleral icterus. No injection or drainage. ENT: No nasal bleeding or discharge. Mucous membranes pink and moist. NECK: Trachea midline. Supple. No nuclear rigidity. RESPIRATORY: No accessory muscle use. No respiratory distress. GASTROINTESTINAL: Abdomen soft, non-tender, nondistended, and no guarding. Hepatic and splenic margins not palpable. No pulsatile mass. GENITOURINARY: Circumcised. Testes descended bilaterally without evidence of rotation. No lesions or erythema. No urethral discharge, but scant amount of blood noted around the glans penis. MUSCULOSKELETAL: No obvious deformities. No clubbing. No cyanosis. No edema. Full range of motion. NEUROLOGICAL: Awake and alert. No obvious cranial nerve deficits. Motor grossly within normal limits. Normal speech. PSYCHIATRIC: Appropriate mood and affect; insight and judgment normal. Data Data Last Documented VS Vital Signs Date Time Temp Pulse Resp B/P (MAP) Pulse Ox O2 Delivery O2 Flow Rate FiO2 01/20/18 19:51 97.7 64 20 153/78 (103) 94 Orders Orders Complete Blood Count With Diff (01/20/18 20:06) Comprehensive Metabolic Panel (01/20/18 20:06) Prothrombin Time / Inr (Pt) (01/20/18 20:06) Act Partial Throm Time (Ptt) (01/20/18 20:06) Urinalysis - C+S If Indicated (01/20/18 20:06) Ct Abd/Pel W/O Iv Contrast (01/20/18 20:06) Iv Access Insert/Monitor (01/20/18 20:06) Ecg Monitoring (01/20/18 20:06) Oximetry (01/20/18 20:06) Sodium Chloride 0.9% Flush (Ns Flush) (01/20/18 20:15) Urine Culture (01/20/18 20:30) Continue Lee/Suprapubic Cath (01/20/18 21:47) Admit Order (Ed Use Only) (01/20/18 21:56) Ciprofloxacin 400 Mg Premix (Cipro 400 M (01/20/18 22:00) Labs Laboratory Tests Test 01/20/18 20:30 White Blood Count 7.4 TH/MM3 Red Blood Count 3.92 MIL/MM3 Hemoglobin 12.8 GM/DL Hematocrit 37.1 % Mean Corpuscular Volume 94.5 FL Mean Corpuscular Hemoglobin 32.6 PG Mean Corpuscular Hemoglobin Concent 34.4 % Red Cell Distribution Width 14.3 % Platelet Count 185 TH/MM3 Mean Platelet Volume 9.8 FL Neutrophils (%) (Auto) 61.0 % Lymphocytes (%) (Auto) 24.1 % Monocytes (%) (Auto) 12.5 % Eosinophils (%) (Auto) 1.8 % Basophils (%) (Auto) 0.6 % Neutrophils # (Auto) 4.5 TH/MM3 Lymphocytes # (Auto) 1.8 TH/MM3 Monocytes # (Auto) 0.9 TH/MM3 Eosinophils # (Auto) 0.1 TH/MM3 Basophils # (Auto) 0.0 TH/MM3 CBC Comment DIFF FINAL Differential Comment Prothrombin Time 12.0 SEC Prothromb Time International Ratio 1.2 RATIO Activated Partial Thromboplast Time 33.8 SEC Urine Color RED Urine Turbidity CLOUDY Urine pH 6.5 Urine Specific [place] 1.031 Urine Protein 300 OR GREATER mg/dL Urine Glucose (UA) NEG mg/dL Urine Ketones TRACE mg/dL Urine Occult Blood LARGE Urine Nitrite POS Urine Bilirubin NEG Urine Leukocyte Esterase NEGATIVE Urine RBC /hpf Microscopic Urinalysis Comment CULTURE INDICATED Blood Urea Nitrogen 17 MG/DL Creatinine 1.09 MG/DL Random Glucose 114 MG/DL Total Protein 6.4 GM/DL Albumin 3.3 GM/DL Calcium Level 8.4 MG/DL Alkaline Phosphatase 77 U/L Aspartate Amino Transf (AST/SGOT) 21 U/L Alanine Aminotransferase (ALT/SGPT) 14 U/L Total Bilirubin 0.7 MG/DL Sodium Level 142 MEQ/L Potassium Level 4.3 MEQ/L Chloride Level 111 MEQ/L Carbon Dioxide Level 23.5 MEQ/L Anion Gap 8 MEQ/L Estimat Glomerular Filtration Rate 64 ML/MIN MDM Medical Decision Making Medical Screen Exam Complete: Yes Emergency Medical Condition: Yes Interpretation(s) Last Impressions Abdomen/Pelvis CT 01/20/182005 Signed Impressions: Service Date/Time: Saturday, January 20, 2018 21:00 - CONCLUSION: 1. Nonobstructing 6 mm calculus left kidney. Bilateral renal cysts mostly in the parapelvic region. 2. Enlarged prostate. Mild dependent density in the bladder could represent some bladder hemorrhage given history of hematuria. Heladio Garrett MD Differential Diagnosis Renal calculi, UTI, bladder hemorrhage, metabolic disturbance, anemia, hematuria Narrative Course Patient was seen and examined. Initial laboratory and radiological studies were ordered. IV was established patient was placed on cardiac monitoring. Discussed patient with urologist recommends having 18 Vietnamese catheter placed for irrigated as needed. IV antibiotics Cipro was ordered. Discussed patient with Dr. Mcgraw, who saw and evaluated the patient is in agreement plan of care disposition. Discussed patient with hospitalist is agreeable to admit the patient. Discussed all findings plan of care with patient and family. Patient is agreeable for admission. All questions were answered. Patient remained stable throughout ED course. Physician Communication Physician Communication [id number] Holman urologist on-call recommends placing 18 Vietnamese with irrigation as needed. Admit to hospitalist. [id number] Tobin, who is agreeable to admit the patient. Diagnosis Primary Impression: Bladder hemorrhage Additional Impression: UTI (urinary tract infection) Qualified Codes: N39.0 - Urinary tract infection, site not specified; R31.9 - Hematuria, unspecified Admitting Information Admitting Physician Requests: Admit Condition: Stable Kervin De Los Santos Jan 20, 2018 20:14
[2018-01-20] MEDS ORDERED: SODIUM CHLORIDE 0.9% FLUSH 10 ML FLUSH IV FLUSH PRN (20:15)
[2018-01-20 20:59] LABS: AUTOMATED NEUTROPHIL # 4.5 TH/MM3 (1.8-7.7); BASOPHIL % 0.6 % (0.0-2.0); EOSINOPHIL # 0.1 TH/MM3 (0-0.4); EOSINOPHIL % 1.8 % (0.0-4.0); HEMATOCRIT 37.1 % (39.0-51.0); HEMOGLOBIN 12.8 GM/DL (13.0-17.0); LYMPH % 24.1 % (9.0-44.0); LYMPHOCYTE # 1.8 TH/MM3 (1.0-4.8); MEAN CELL VOLUME 94.5 FL (80.0-100.0); MEAN CORPUSCULAR HEMOGLOBIN 32.6 PG (27.0-34.0); MEAN CORPUSCULAR HGB CONC 34.4 % (32.0-36.0); MEAN PLATELET VOLUME 9.8 FL (7.0-11.0); MONO % 12.5 % (0.0-8.0); MONOCYTE # 0.9 TH/MM3 (0-0.9); PLATELET COUNT 185 TH/MM3 (150-450); RED BLOOD COUNT 3.92 MIL/MM3 (4.50-5.90); RED CELL DISTRIBUTION WIDTH 14.3 % (11.6-17.2); WHITE BLOOD COUNT 7.4 TH/MM3 (4.0-11.0)
[2018-01-20 21:17] LABS: INTERNATIONAL NORMALIZED RATIO 1.2 RATIO
[2018-01-20 21:27] LABS: ALT (GPT) 14 U/L (12-78)
--- NOTE | 2018-01-20 21:28 | RADRPT ---
EXAM DATE/TIME: 01/20/2018 21:00 [facility] COMPARISON: No previous studies available for comparison. INDICATIONS : Hematuria. ORAL CONTRAST: No oral contrast ingested. RADIATION DOSE: 14.33 CTDIvol (mGy) MEDICAL HISTORY : Cardiovascular disease. Hypertension. SURGICAL HISTORY : Appendectomy. Prostatectomy. ENCOUNTER: Initial ACUITY: 1 day PAIN SCALE: 4/10 LOCATION: Bilateral flank TECHNIQUE: Volumetric scanning of the abdomen and pelvis was performed. Using automated exposure control and ad justment of the mA and/or kV according to patient size, radiation dose was kept as low as reasonably achievable to obtain optimal diagnostic quality images. DICOM format image data is available electro nically for review and comparison. FINDINGS: Minimal basilar dependent atelectasis and scarring. Calcified granuloma left lower lobe. No acute findings in the liver, spleen, adrenals or pancreas. Bilateral renal parapelvic cysts with n onobstructing 6 mm calcification midpole right kidney. There is no free fluid. No bowel obstruction. No adenopathy. Prostate is enlarged. Questionable depen dent density within the bladder. Mild scoliosis. CONCLUSION: 1. Nonobstructing 6 mm calculus left kidney. Bilateral renal cysts mostly in the parapelvic region. 2. Enlarged prostate. Mild dependent density in the bladder could represent some bladder hemorrhage g iven history of hematuria. Heladio Garrett MD on January 20, 2018 at 21:20 Board Certified Radiologist. This report was verified electronically.
[2018-01-20 21:29] LABS: ALKALINE PHOSPHATASE 77 U/L (45-117); TOTAL BILIRUBIN ADULT 0.7 MG/DL (0.2-1.0); TOTAL PROTEIN 6.4 GM/DL (6.4-8.2)
[2018-01-20 21:30] LABS: ALBUMIN 3.3 GM/DL (3.4-5.0); AST (GOT) 21 U/L (15-37); BICARBONATE 23.5 MEQ/L (21.0-32.0); BLOOD UREA NITROGEN 17 MG/DL (7-18); CALCIUM 8.4 MG/DL (8.5-10.1); CHLORIDE 111 MEQ/L (98-107); CREATININE 1.09 MG/DL (0.60-1.30); GLOMERULAR FILTRATION RATE 64 ML/MIN (>89); GLUCOSE,RANDOM 114 MG/DL (74-106); SODIUM (NA) 142 MEQ/L (136-145)
[2018-01-20 21:42] LABS: URINE COLOR RED (YELLW/STRAW)
[2018-01-20 21:43] LABS: BILIRUBIN, URINE NEG (NEG); BLOOD, URINE LARGE (NEG); GLUCOSE,URINE NEG (NEG); KETONE, URINE TRACE mg/dL (NEG); NITRITE,URINE POS (NEG); PH, URINE 6.5 (5.0-8.5); URINE LEUKOCYTE ESTERASE NEGATIVE (NEG)
[2018-01-20] MEDS ORDERED: CIPROFLOXACIN 400 MG PREMIX 200 ML IV ONE (22:00)
--- NOTE | 2018-01-20 22:09 | PD ---
Physical Exam Date Seen by Provider: Jan 20, 2018 Time Seen by Provider: 21:00 Narrative I, Dr. Mcgraw, have reviewed the advance practice practitioner's documentation and am in agreement, met with the patient face to face, made the diagnosis, and the medical decision making was done by me. *My assessment and Findings: Patient seen and evaluated with PA, please see PA note for further details. Patient is on Pradaxa, here with hematuria. H&H is stable. CAT scan is showing possible clots within the bladder, and a UTI, and case was discussed with urology on-call who would like us to put in a three-way catheter. Planning to treat with antibiotics. Abdomen was fairly benign on evaluation, he is no longer bleeding here in the ER. Case was then discussed with hospitalist for admission. Laboratory Tests Test 01/20/18 20:30 Red Blood Count 3.92 MIL/MM3 (4.50-5.90) Hemoglobin 12.8 GM/DL (13.0-17.0) Hematocrit 37.1 % (39.0-51.0) Monocytes (%) (Auto) 12.5 % (0.0-8.0) Prothrombin Time 12.0 SEC (9.8-11.6) Activated Partial Thromboplast Time 33.8 SEC (24.3-30.1) Urine Color RED (YELLW/STRAW) Urine Turbidity CLOUDY (CLEAR) Urine Protein 300 OR GREATER mg/dL Urine Ketones TRACE mg/dL (NEG) Urine Occult Blood LARGE (NEG) Urine Nitrite POS (NEG) Random Glucose 114 MG/DL (74-106) Albumin 3.3 GM/DL (3.4-5.0) Calcium Level 8.4 MG/DL (8.5-10.1) Chloride Level 111 MEQ/L (98-107) Estimat Glomerular Filtration Rate 64 ML/MIN (>89) Last 24 hours Impressions Abdomen/Pelvis CT 01/20/182005 Signed Impressions: Service Date/Time: Saturday, January 20, 2018 21:00 - CONCLUSION: 1. Nonobstructing 6 mm calculus left kidney. Bilateral renal cysts mostly in the parapelvic region. 2. Enlarged prostate. Mild dependent density in the bladder could represent some bladder hemorrhage given history of hematuria. Heladio Garrett MD Data Data Last Documented VS Vital Signs Date Time Temp Pulse Resp B/P (MAP) Pulse Ox O2 Delivery O2 Flow Rate FiO2 01/20/18 19:51 97.7 64 20 153/78 (103) 94 Orders Orders Complete Blood Count With Diff (01/20/18 20:06) Comprehensive Metabolic Panel (01/20/18 20:06) Prothrombin Time / Inr (Pt) (01/20/18 20:06) Act Partial Throm Time (Ptt) (01/20/18 20:06) Urinalysis - C+S If Indicated (01/20/18 20:06) Ct Abd/Pel W/O Iv Contrast (01/20/18 20:06) Iv Access Insert/Monitor (01/20/18 20:06) Ecg Monitoring (01/20/18 20:06) Oximetry (01/20/18 20:06) Sodium Chloride 0.9% Flush (Ns Flush) (01/20/18 20:15) Urine Culture (01/20/18 20:30) Continue Lee/Suprapubic Cath (01/20/18 21:47) Admit Order (Ed Use Only) (01/20/18 21:56) Ciprofloxacin 400 Mg Premix (Cipro 400 M (01/20/18 22:00) Labs Laboratory Tests Test 01/20/18 20:30 White Blood Count 7.4 TH/MM3 Red Blood Count 3.92 MIL/MM3 Hemoglobin 12.8 GM/DL Hematocrit 37.1 % Mean Corpuscular Volume 94.5 FL Mean Corpuscular Hemoglobin 32.6 PG Mean Corpuscular Hemoglobin Concent 34.4 % Red Cell Distribution Width 14.3 % Platelet Count 185 TH/MM3 Mean Platelet Volume 9.8 FL Neutrophils (%) (Auto) 61.0 % Lymphocytes (%) (Auto) 24.1 % Monocytes (%) (Auto) 12.5 % Eosinophils (%) (Auto) 1.8 % Basophils (%) (Auto) 0.6 % Neutrophils # (Auto) 4.5 TH/MM3 Lymphocytes # (Auto) 1.8 TH/MM3 Monocytes # (Auto) 0.9 TH/MM3 Eosinophils # (Auto) 0.1 TH/MM3 Basophils # (Auto) 0.0 TH/MM3 CBC Comment DIFF FINAL Differential Comment Prothrombin Time 12.0 SEC Prothromb Time International Ratio 1.2 RATIO Activated Partial Thromboplast Time 33.8 SEC Urine Color RED Urine Turbidity CLOUDY Urine pH 6.5 Urine Specific [place] 1.031 Urine Protein 300 OR GREATER mg/dL Urine Glucose (UA) NEG mg/dL Urine Ketones TRACE mg/dL Urine Occult Blood LARGE Urine Nitrite POS Urine Bilirubin NEG Urine Leukocyte Esterase NEGATIVE Urine RBC /hpf Microscopic Urinalysis Comment CULTURE INDICATED Blood Urea Nitrogen 17 MG/DL Creatinine 1.09 MG/DL Random Glucose 114 MG/DL Total Protein 6.4 GM/DL Albumin 3.3 GM/DL Calcium Level 8.4 MG/DL Alkaline Phosphatase 77 U/L Aspartate Amino Transf (AST/SGOT) 21 U/L Alanine Aminotransferase (ALT/SGPT) 14 U/L Total Bilirubin 0.7 MG/DL Sodium Level 142 MEQ/L Potassium Level 4.3 MEQ/L Chloride Level 111 MEQ/L Carbon Dioxide Level 23.5 MEQ/L Anion Gap 8 MEQ/L Estimat Glomerular Filtration Rate 64 ML/MIN [facility] Medical Record Reviewed: Yes Supervised Visit with JAN: Yes Diagnosis Primary Impression: Bladder hemorrhage Additional Impression: UTI (urinary tract infection) Qualified Codes: N39.0 - Urinary tract infection, site not specified; R31.9 - Hematuria, unspecified Admitting Information Admitting Physician Requests: it Bakari Mcgraw MD Jan 20, 2018 22:09
[2018-01-20] MEDS ORDERED: HYOSCYAMINE SOLN 0.125 MG/ML 15 ML BTL PO PRN (22:15)
[2018-01-20 22:25] VITALS: O2SAT 95
[2018-01-20 22:50] VITALS: BP 148/86; PULSE 72; RESP 18; TEMP 97.4; O2SAT 94
[2018-01-21 03:43] VITALS: BP 135/76; PULSE 70; RESP 17; TEMP 97.4; O2SAT 97
[2018-01-21 06:26] LABS: AUTOMATED NEUTROPHIL # 3.1 TH/MM3 (1.8-7.7); BASOPHIL % 0.5 % (0.0-2.0); EOSINOPHIL # 0.1 TH/MM3 (0-0.4); EOSINOPHIL % 1.9 % (0.0-4.0); HEMATOCRIT 36.1 % (39.0-51.0); HEMOGLOBIN 12.4 GM/DL (13.0-17.0); LYMPHOCYTE # 1.8 TH/MM3 (1.0-4.8); MEAN CELL VOLUME 94.9 FL (80.0-100.0); MEAN CORPUSCULAR HEMOGLOBIN 32.6 PG (27.0-34.0); MEAN CORPUSCULAR HGB CONC 34.4 % (32.0-36.0); MONO % 11.5 % (0.0-8.0); MONOCYTE # 0.6 TH/MM3 (0-0.9); NEUT % 54.1 % (16.0-70.0); PLATELET COUNT 163 TH/MM3 (150-450); RED CELL DISTRIBUTION WIDTH 14.4 % (11.6-17.2); WHITE BLOOD COUNT 5.6 TH/MM3 (4.0-11.0)
[2018-01-21 06:39] LABS: BICARBONATE 26.5 MEQ/L (21.0-32.0); CALCIUM 8.2 MG/DL (8.5-10.1); CREATININE 0.86 MG/DL (0.60-1.30)
--- NOTE | 2018-01-21 07:50 | HHI.HP ---
HPI Service [facility] Hospitalists Primary Care Physician Marco Antonio Faye MD Admission Diagnosis Bladder hemorrhage, UTI Chief Complaint: "peeing blood" Travel History International Travel<30 Days: No Contact w/Intl Traveler <30 Da: No Traveled to Known Affected Are: No History of Present Illness Patient is a pleasant 86-year-old male with multiple medical problems including hypertension, atrial fibrillation on Pradaxa, hypertension, hyperlipidemia, GERD , BPH status post TURP 2012, and Parkinson's disease with mild dementia. Most recently patient was hospitalized at [facility] due to dysphagia/esophageal stricture 11/27/17 to 11/30/17. Patient presented tot he ER last night due to hematuria. Patient has report patient awoke approximately 10:00 yesterday morning noticed red blood/ urine in brief. Then again a few hours later patient was sitting on toilet passing jeanmarie red blood. Patient presented and proceeded to the emergency department for further evaluation and treatment. Patient denies pain or burning. Patient is on Pradaxa but denies any recent changes in medications. Patient did have TURP [place] [address] Dale has not had any recent bladder interventions catheterizations or trauma. Patient denies feeling lightheaded, dizzy, nausea, vomiting, diarrhea, constipation, fevers, chills, shortness of breath or chest pain. Past Family Social History Past Medical History 1) hypertension 2) atrial fibrillation - on pradaxa - pt follows with Dr. Chapa 3) hyperlipidemia 4) dementia 5) esophageal stricture, status post dilation 6) pulmonary hypertension, mild 7) GERD 8) BPH - TURP 08/10/13 - TURP done by Dr. Dale 9) diverticulosis 10) Peyronie's disease/erectile dysfunction, patient follows with urology 11) small right inguinal hernia - Evaluated by surgery in the past but surgical correction not recommended 12) essential tremor 13) carotid disease, mild 14) chronic kidney disease, stage II 15) bilateral gynecomastia 16) atherosclerosis of the aorta 17) Parkinson's disease with mild dementia Past Surgical History 1. History of Appendectomy 193 2. History of Cataract Surgery left eye in 2007 3. History of Complete Colonoscopy Colonoscopy on: 03-07-04 (diverticuloisis in the descending and sigmoid colon); 04-02-11 (normal colon) 4. History of Diagnostic Esophagogastroduodenoscopy 08/31/[address] Campos revealed gastritis in the antrum, stricture at the GE junction dilated to 14 mm and a sessile polyp in the body of the stomach. Pathology revealed mild chronic active gastritis and a hyperplastic polyp.f/u in six weeks.EGD on: 07-22-16 (food impaction distal esophagus; stricture of distal esophagus); 07-26-16 (dilation of an esophageal stricture , gastritis, gastric polyps, hiatal hernia) 5. History of Discission Of Secondary Membranous Cataract By Laser 6. History of Esophageal Dilation patient has had multiple dilations in the past. Last two: 06-17-05; (EGD with dilation of stricture at GE junction, gastritis, polyp in stomach) 7. History of Repair Of Retinal Detachment left eye 1994 8. History of Sigmoidoscopy (Fiberoptic) 9. History of Stress Test By Pharmacologic Challenge A myocardial perfusion scan on 06-25-16 was negative with an EF of 68%. 10. History of Total Knee Arthroplasty right knee 1997 11. History of Transurethral Resection Of Prostate (TURP) TURP on 08-10-13 Reported Medications Hyosyne Liq Drops (Hyoscyamine Sulfate) 0.125 Mg/Ml Soln 0.125 Mg PO Q4HR PRN 30 Days Pradaxa (Dabigatran) 150 Mg Cap 150 Mg PO BID resume on 07/27 Aricept (Donepezil) 23 Mg Tab 5 Mg PO HS Do not split, crushed or chewed. Carbidopa-Levodopa 25-250 Mg Tab 0.5 Tab PO TID taken at 0800, 1300, 1800 Vitamin D3 (Cholecalciferol) 1,000 Unit Tab 1,000 Units PO DAILY Pantoprazole (Pantoprazole Sodium) 40 Mg Tab 40 Mg PO BID Memantine 10 Mg Tab 10 Mg PO BID Norvasc (Amlodipine Besylate) 5 Mg Tab 5 Mg PO BID Lipitor (Atorvastatin Calcium) 40 Mg Tab 40 Mg PO HS Atenolol 25 Mg Tab 25 Mg PO DAILY Allergies: Coded Allergies: Sulfa (Sulfonamide Antibiotics) (Verified Allergy, Severe, MIGRAINES, RED EYES, 01/20/18) Family History Noncontributory Social History - - Retired - Former smoker - No alcohol use - no illicit street drugs Physical Exam Vital Signs Vital Signs Date Time Temp Pulse Resp B/P (MAP) Pulse Ox O2 Delivery O2 Flow Rate FiO2 01/21/18 03:43 97.4 70 17 135/76 (95) 97 01/20/18 22:50 97.4 72 18 148/86 (106) 94 01/20/18 22:25 95 Room Air 01/20/18 19:51 97.7 64 20 153/78 (103) 94 Physical Exam GENERAL: This is a well-nourished, well-developed patient, in no apparent distress. SKIN: No rashes, ecchymoses or lesions. Cool and dry. HEAD: Atraumatic. Normocephalic. No temporal or scalp tenderness. EYES: Extraocular motions intact. No scleral icterus. No injection or drainage. CARDIOVASCULAR: Irregularly irregular RESPIRATORY: Clear to auscultation. Breath sounds equal bilaterally. GASTROINTESTINAL: Abdomen soft, non-tender, nondistended. GENITOURINARY: Harry in place draining red urine MUSCULOSKELETAL: Extremities without clubbing, cyanosis, or edema. No joint tenderness, effusion, or edema noted. No calf tenderness. Negative Homans sign bilaterally. NEUROLOGICAL: Awake and alert. Motor and sensory grossly within normal limits. Five out of 5 muscle strength in all muscle groups. Normal speech. Laboratory Laboratory Tests Test 01/20/18 20:30 01/21/18 04:25 White Blood Count 7.4 5.6 Red Blood Count 3.92 3.80 Hemoglobin 12.8 12.4 Hematocrit 37.1 36.1 Mean Corpuscular Volume 94.5 94.9 Mean Corpuscular Hemoglobin 32.6 32.6 Mean Corpuscular Hemoglobin Concent 34.4 34.4 Red Cell Distribution Width 14.3 14.4 Platelet Count 185 163 Mean Platelet Volume 9.8 10.0 Neutrophils (%) (Auto) 61.0 54.1 Lymphocytes (%) (Auto) 24.1 32.0 Monocytes (%) (Auto) 12.5 11.5 Eosinophils (%) (Auto) 1.8 1.9 Basophils (%) (Auto) 0.6 0.5 Neutrophils # (Auto) 4.5 3.1 Lymphocytes # (Auto) 1.8 1.8 Monocytes # (Auto) 0.9 0.6 Eosinophils # (Auto) 0.1 0.1 Basophils # (Auto) 0.0 0.0 CBC Comment DIFF FINAL DIFF FINAL Differential Comment Prothrombin Time 12.0 Prothromb Time International Ratio 1.2 Activated Partial Thromboplast Time 33.8 Urine Color RED Urine Turbidity CLOUDY Urine pH 6.5 Urine Specific [place] 1.031 Urine Protein 300 OR GREATER Urine Glucose (UA) NEG Urine Ketones TRACE Urine Occult Blood LARGE Urine Nitrite POS Urine Bilirubin NEG Urine Leukocyte Esterase NEGATIVE Urine RBC Microscopic Urinalysis Comment CULTURE INDICATED Blood Urea Nitrogen 17 15 Creatinine 1.09 0.86 Random Glucose 114 100 Total Protein 6.4 Albumin 3.3 Calcium Level 8.4 8.2 Alkaline Phosphatase 77 Aspartate Amino Transf (AST/SGOT) 21 Alanine Aminotransferase (ALT/SGPT) 14 Total Bilirubin 0.7 Sodium Level 142 144 Potassium Level 4.3 3.7 Chloride Level 111 110 Carbon Dioxide Level 23.5 26.5 Anion Gap 8 8 Estimat Glomerular Filtration Rate 64 84 Date/Time Source Procedure Growth Status 01/20/18 20:30 Urine Random Urine Urine Culture Pending Received Result Diagram: 01/21/185 01/21/185 Imaging Last Impressions Abdomen/Pelvis CT 01/20/182005 Signed Impressions: Service Date/Time: Saturday, January 20, 2018 21:00 - CONCLUSION: 1. Nonobstructing 6 mm calculus left kidney. Bilateral renal cysts mostly in the parapelvic region. 2. Enlarged prostate. Mild dependent density in the bladder could represent some bladder hemorrhage given history of hematuria. Heladio Garrett MD Caprini VTE Risk Assessment Caprini VTE Risk Assessment: Mod/High Risk (score >= 2) Caprini Risk Assessment Model Point Value = 1 Point Value = 2 Point Value = 3 Point Value = 5 Age 41-60 Minor surgery BMI > 25 kg/m2 Swollen legs Varicose veins or History of unexplained or recurrent spontaneous Oral contraceptives or hormone replacement Sepsis (< 1 month) Serious lung disease, including pneumonia (< 1 month) Abnormal pulmonary function Acute myocardial infarction Congestive heart failure (< 1 month) History of inflammatory bowel disease Medical patient at bed rest Age 61-74 Arthroscopic surgery Major open surgery (> 45 min) Laparoscopic surgery (> 45 min) Malignancy Confined to bed (> 72 hours) Immobilizing plaster cast Central venous access Age >= 75 History of VTE Family history of VTE Factor V Leiden Prothrombin [id number] Lupus anticoagulant Anticardiolipin antibodies Elevated serum homocysteine Heparin-induced thrombocytopenia Other congenital or acquired thrombophilia Stroke (< 1 month) Elective arthroplasty Hip, pelvis, or leg fracture Acute spinal cord injury (< 1 month) Prophylaxis Regimen Total Risk Factor Score Risk Level Prophylaxis Regimen 0-1 Low Early ambulation 2 Moderate Order ONE of the following: *Sequential Compression Device (SCD) *Heparin 5000 units SQ BID 3-4 Higher Order ONE of the following medications: *Heparin 5000 units SQ TID *Enoxaparin/Lovenox 40 mg SQ daily (WT < 150 kg, CrCl > 30 mL/min) *Enoxaparin/Lovenox 30 mg SQ daily (WT < 150 kg, CrCl > 10-29 mL/min) *Enoxaparin/Lovenox 30 mg SQ BID (WT < 150 kg, CrCl > 30 mL/min) AND/OR *Sequential Compression Device (SCD) 5 or more Highest Order ONE of the following medications: *Heparin 5000 units SQ TID (Preferred with Epidurals) *Enoxaparin/Lovenox 40 mg SQ daily (WT < 150 kg, CrCl > 30 mL/min) *Enoxaparin/Lovenox 30 mg SQ daily (WT < 150 kg, CrCl > 10-29 mL/min) *Enoxaparin/Lovenox 30 mg SQ BID (WT < 150 kg, CrCl > 30 mL/min) AND *Sequential Compression Device (SCD) Assessment and Plan Problem List: (1) Hematuria ICD Codes: R31.9 - Hematuria, unspecified Plan: Hematuria Harry in place irrigate as needed H&H stable Consultation placed to Dr. Holman Await further recommendations per urology Possible UTI Urinalysis reviewed and reveals positive nitrates patient given ciprofloxacin emergency department Urine culture reveals: <10,000 gram positive amie No further abx Afib Rate is currently controlled Continue patient's home atenolol 25 mg daily Patient having hematuria will hold Pradaxa HTN (hypertension) Continue patient's home atenolol 25 mg daily and amlodipine 5 mg twice daily Diabetes mellitus type 2, diet-controlled Diet controlled we will continue diabetic diet Hyperlipidemia Continue patient's home atorvastatin 4040 mg p.o. nightly Dementia will continue patient's home carbidopa levodopa as well as Memantin (2) Afib ICD Codes: I48.91 - Unspecified atrial fibrillation (3) HTN (hypertension) ICD Codes: I10 - Essential (primary) hypertension Status: Chronic (4) Diabetes mellitus type 2, diet-controlled ICD Codes: E11.9 - Type 2 diabetes mellitus without complications Status: Chronic (5) Hyperlipidemia ICD Codes: E78.5 - Hyperlipidemia, unspecified Status: Chronic (6) Dementia ICD Codes: F03.90 - Unspecified dementia without behavioral disturbance Status: Chronic Assessment and Plan Patient examined. Assessment and plan formulated with Padmini Mulligan PA-C. I agree with the above. hematuria. harry. cont ivf. urology following. Physician Certification 2 Midnight Certification Type: Admission for Inpatient Services Order for Inpatient Services The services are ordered in accordance with Medicare regulations or non- Medicare payer requirements, as applicable. In the case of services not specified as inpatient-only, they are appropriately provided as inpatient services in accordance with the 2-midnight benchmark. Estimated LOS (days): 3 days is the estimated time the patient will need to remain in the hospital, assuming treatment plan goals are met and no additional complications. Post-Hospital Plan: Not yet determined Padmini Mulligan January 21, 2018 07:50 Leonel Nicole MD January 21, 2018 18:29
[2018-01-21 08:00] VITALS: BP 146/70; PULSE 63; RESP 16; TEMP 98; O2SAT 95
[2018-01-21] MEDS: CHOLECALCIFEROL (VIT D3) 1000 UNIT TAB PO SCH (10:00)
[2018-01-21] MEDS: ATENOLOL 25 MG TAB PO SCH (10:00)
[2018-01-21] MEDS: amLODIPine BESYLATE 5 MG TAB PO SCH ×2 (10:01→21:49)
[2018-01-21] MEDS: PANTOPRAZOLE SOD 40 MG DELAYED RELEASE TAB PO SCH ×2 (10:01→21:49)
[2018-01-21] MEDS: CARBIDOPA/LEVODOPA 25 MG/250 MG TAB PO SCH ×3 (10:01→18:30)
[2018-01-21] MEDS: MEMANTINE HCL 10 MG TAB PO SCH ×2 (10:01→21:49)
[2018-01-21 12:00] VITALS: BP 134/87; PULSE 77; RESP 16; TEMP 97.8; O2SAT 94
--- NOTE | 2018-01-21 12:58 | PD.CONS ---
HPI Service Urology Consult Requested By Dr. Tobin Reason for Consult Gross hematuria Primary Care Physician Marco Antonio Faye MD Diagnosis: (1) Hematuria ICD Code: R31.9 - Hematuria, unspecified (2) Afib ICD Code: I48.91 - Unspecified atrial fibrillation (3) HTN (hypertension) ICD Code: I10 - Essential (primary) hypertension (4) Diabetes mellitus type 2, diet-controlled ICD Code: E11.9 - Type 2 diabetes mellitus without complications (5) Hyperlipidemia ICD Code: E78.5 - Hyperlipidemia, unspecified (6) Dementia ICD Code: F03.90 - Unspecified dementia without behavioral disturbance History of Present Illness 87-year-old gentleman with history BPH status post TUR[place] [address] Sean Heath who presented to the emergency room with new onset gross hematuria. Patient has multiple medical problems including atrial fibrillation on Pradaxa. An indwelling Lee catheter was placed and a urology consult made. At the time of consultation the patient was noted to have improvement in the hematuria. During present hospitalization a CT scan of the abdomen and pelvis was performed that demonstrated a nonobstructing 6 mm left renal calculus and a markedly enlarged prostate. Review of Systems Constitutional: DENIES: Fever, Chills Cardiovascular: DENIES: Chest pain Gastrointestinal: DENIES: Nausea, Vomiting Genitourinary: COMPLAINS OF: Hematuria Except as stated in HPI: all other systems reviewed are Neg Past Family Social History Past Medical History BPH GERD Parkinson's disease Mild dementia Atrial fibrillation Esophageal stricture Pulmonary hypertension Diverticulosis Chronic kidney disease Past Surgical History Status post TURP 2012 Status post esophageal dilation Status post right knee arthroplasty Status post left cataract surgery Reported Medications Refer to EMR Allergies: Coded Allergies: Sulfa (Sulfonamide Antibiotics) (Verified Allergy, Severe, MIGRAINES, RED EYES, 01/20/18) Active Ordered Medications Refer to EMR Family History Reviewed and noncontributory Social History Former smoker Denies alcohol or intravenous drug abuse history Physical Exam Vital Signs Date Time Temp Pulse Resp B/P (MAP) Pulse Ox O2 Delivery O2 Flow Rate FiO2 01/21/18 12:00 97.8 77 16 134/87 (103) 94 01/21/18 08:00 98.0 63 16 146/70 (95) 95 01/21/18 03:43 97.4 70 17 135/76 (95) 97 01/20/18 22:50 97.4 72 18 148/86 (106) 94 01/20/18 22:25 95 Room Air 01/20/18 19:51 97.7 64 20 153/78 (103) 94 Physical Exam GENERAL: This is a well-nourished, well-developed patient, in no apparent distress. SKIN: No rashes, ecchymoses or lesions. Cool and dry. HEAD: Atraumatic. Normocephalic. No temporal or scalp tenderness. EYES: Pupils equal round and reactive. Extraocular motions intact. No scleral icterus. No injection or drainage. ENT: Nose without bleeding, purulent drainage or septal hematoma. Throat without erythema, tonsillar hypertrophy or exudate. Uvula midline. Airway patent. NECK: Trachea midline. No JVD or lymphadenopathy. Supple, nontender, no meningeal signs. GASTROINTESTINAL: Abdomen soft, non-tender, nondistended. No hepato-splenomegaly , or palpable masses. No guarding. GENITOURINARY: Bladder not distended, Lee catheter draining medium red urine without clots MUSCULOSKELETAL: Extremities without clubbing, cyanosis, or edema. No joint tenderness, effusion, or edema noted. No calf tenderness. Negative Homans sign bilaterally. NEUROLOGICAL: Awake and alert. Cranial nerves II through XII intact. Motor and sensory grossly within normal limits. Five out of 5 muscle strength in all muscle groups. Normal speech. Lab results reviewed: Yes Laboratory Tests Test 01/20/18 20:30 01/21/18 04:25 White Blood Count 7.4 5.6 Red Blood Count 3.92 3.80 Hemoglobin 12.8 12.4 Hematocrit 37.1 36.1 Mean Corpuscular Volume 94.5 94.9 Mean Corpuscular Hemoglobin 32.6 32.6 Mean Corpuscular Hemoglobin Concent 34.4 34.4 Red Cell Distribution Width 14.3 14.4 Platelet Count 185 163 Mean Platelet Volume 9.8 10.0 Neutrophils (%) (Auto) 61.0 54.1 Lymphocytes (%) (Auto) 24.1 32.0 Monocytes (%) (Auto) 12.5 11.5 Eosinophils (%) (Auto) 1.8 1.9 Basophils (%) (Auto) 0.6 0.5 Neutrophils # (Auto) 4.5 3.1 Lymphocytes # (Auto) 1.8 1.8 Monocytes # (Auto) 0.9 0.6 Eosinophils # (Auto) 0.1 0.1 Basophils # (Auto) 0.0 0.0 CBC Comment DIFF FINAL DIFF FINAL Differential Comment Prothrombin Time 12.0 Prothromb Time International Ratio 1.2 Activated Partial Thromboplast Time 33.8 Urine Color RED Urine Turbidity CLOUDY Urine pH 6.5 Urine Specific [place] 1.031 Urine Protein 300 OR GREATER Urine Glucose (UA) NEG Urine Ketones TRACE Urine Occult Blood LARGE Urine Nitrite POS Urine Bilirubin NEG Urine Leukocyte Esterase NEGATIVE Urine RBC Microscopic Urinalysis Comment CULTURE INDICATED Blood Urea Nitrogen 17 15 Creatinine 1.09 0.86 Random Glucose 114 100 Total Protein 6.4 Albumin 3.3 Calcium Level 8.4 8.2 Alkaline Phosphatase 77 Aspartate Amino Transf (AST/SGOT) 21 Alanine Aminotransferase (ALT/SGPT) 14 Total Bilirubin 0.7 Sodium Level 142 144 Potassium Level 4.3 3.7 Chloride Level 111 110 Carbon Dioxide Level 23.5 26.5 Anion Gap 8 8 Estimat Glomerular Filtration Rate 64 84 Date/Time Source Procedure Growth Status 01/20/18 20:30 Urine Random Urine Urine Culture - Preliminary <10,000 CFU/ML GRAM POSITIVE MASOUD Resulted Result Diagram: 01/21/18 0425 01/21/18 0425 Personally reviewed images: Yes Imaging Last Impressions Abdomen/Pelvis CT 01/20/182005 Signed Impressions: Service Date/Time: Saturday, January 20, 2018 21:00 - CONCLUSION: 1. Nonobstructing 6 mm calculus left kidney. Bilateral renal cysts mostly in the parapelvic region. 2. Enlarged prostate. Mild dependent density in the bladder could represent some bladder hemorrhage given history of hematuria. Heladio Garrett MD Assessment and Plan Assessment and Plan Urologic impression: 1. History BPH status post TURP 2. New onset gross hematuria likely related to BPH history with use of Pradaxa 3. 6 mm nonobstructing left renal calculus Recommendations: 1. Maintain Lee catheter to gravity drainage until urine remains clear yellow in appearance for at least 48 hours 2. Office follow-up visit 3-4 weeks after hospital discharge for reevaluation 3. Conservative management of the nonobstructing left renal calculus. Omar Holman MD January 21, 2018 12:58
[2018-01-21 16:00] VITALS: BP 146/84; PULSE 96; RESP 16; TEMP 97.9; O2SAT 92
[2018-01-21] MEDS: SODIUM CHLOR 0.9% 1000 ML INJ 1,000 ML IV SCH ×2 (18:30→21:58)
[2018-01-21 20:52] VITALS: BP 110/63; PULSE 60; RESP 18; TEMP 98.3; O2SAT 94
[2018-01-21] MEDS: ATORVASTATIN 40 MG TAB PO SCH (21:49)
[2018-01-21] MEDS: DONEPEZIL HCL 5 MG TAB PO SCH (21:49)
[2018-01-21 22:48] VITALS: BP 114/58; PULSE 93; RESP 18; TEMP 97.6; O2SAT 96
[2018-01-22 07:06] LABS: AUTOMATED NEUTROPHIL # 3.5 TH/MM3 (1.8-7.7); BASOPHIL % 0.6 % (0.0-2.0); EOSINOPHIL # 0.2 TH/MM3 (0-0.4); EOSINOPHIL % 2.5 % (0.0-4.0); HEMATOCRIT 36.6 % (39.0-51.0); HEMOGLOBIN 12.6 GM/DL (13.0-17.0); LYMPH % 27.2 % (9.0-44.0); LYMPHOCYTE # 1.7 TH/MM3 (1.0-4.8); MEAN CELL VOLUME 94.3 FL (80.0-100.0); MEAN CORPUSCULAR HEMOGLOBIN 32.6 PG (27.0-34.0); MEAN CORPUSCULAR HGB CONC 34.5 % (32.0-36.0); MEAN PLATELET VOLUME 10.2 FL (7.0-11.0); MONO % 12.2 % (0.0-8.0); MONOCYTE # 0.7 TH/MM3 (0-0.9); NEUT % 57.5 % (16.0-70.0); PLATELET COUNT 159 TH/MM3 (150-450); RED BLOOD COUNT 3.88 MIL/MM3 (4.50-5.90); RED CELL DISTRIBUTION WIDTH 14.4 % (11.6-17.2); WHITE BLOOD COUNT 6.2 TH/MM3 (4.0-11.0)
[2018-01-22 08:00] VITALS: BP 136/96; PULSE 69; RESP 18; TEMP 97.5; O2SAT 93
[2018-01-22] MEDS: ATENOLOL 25 MG TAB PO SCH (08:26)
[2018-01-22] MEDS: PANTOPRAZOLE SOD 40 MG DELAYED RELEASE TAB PO SCH ×2 (08:27→20:28)
[2018-01-22] MEDS: MEMANTINE HCL 10 MG TAB PO SCH ×2 (08:27→20:28)
[2018-01-22] MEDS: CARBIDOPA/LEVODOPA 25 MG/250 MG TAB PO SCH ×3 (08:27→17:40)
[2018-01-22] MEDS: CHOLECALCIFEROL (VIT D3) 1000 UNIT TAB PO SCH (08:27)
[2018-01-22] MEDS: amLODIPine BESYLATE 5 MG TAB PO SCH ×2 (08:27→20:28)
[2018-01-22] MEDS: SODIUM CHLOR 0.9% 1000 ML INJ 1,000 ML IV SCH ×2 (08:30→20:28)
--- NOTE | 2018-01-22 10:49 | HHI.PR ---
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, some bloody sediment in the Lee but overall improving No complaints of abd pain Complains of some burning pain at the Lee insertion site Objective Vitals Vital Signs Date Time Temp Pulse Resp B/P (MAP) Pulse Ox O2 Delivery O2 Flow Rate FiO2 01/22/18 08:00 97.5 69 18 136/96 (109) 93 01/21/18 23:48 Room Air 01/21/18 22:48 97.6 93 18 114/58 (76) 96 01/21/18 20:52 98.3 60 18 110/63 (79) 94 01/21/18 16:00 97.9 96 16 146/84 (104) 92 01/21/18 12:00 97.8 77 16 134/87 (103) 94 Result Diagram: 01/22/18 0404 01/21/18 0425 Other Results Laboratory Tests Test 01/20/18 20:30 01/21/18 04:25 01/22/18 04:04 White Blood Count 7.4 TH/MM3 5.6 TH/MM3 6.2 TH/MM3 Red Blood Count 3.92 MIL/MM3 3.80 MIL/MM3 3.88 MIL/MM3 Hemoglobin 12.8 GM/DL 12.4 GM/DL 12.6 GM/DL Hematocrit 37.1 % 36.1 % 36.6 % Mean Corpuscular Volume 94.5 FL 94.9 FL 94.3 FL Mean Corpuscular Hemoglobin 32.6 PG 32.6 PG 32.6 PG Mean Corpuscular Hemoglobin Concent 34.4 % 34.4 % 34.5 % Red Cell Distribution Width 14.3 % 14.4 % 14.4 % Platelet Count 185 TH/MM3 163 TH/MM3 159 TH/MM3 Mean Platelet Volume 9.8 FL 10.0 FL 10.2 FL Neutrophils (%) (Auto) 61.0 % 54.1 % 57.5 % Lymphocytes (%) (Auto) 24.1 % 32.0 % 27.2 % Monocytes (%) (Auto) 12.5 % 11.5 % 12.2 % Eosinophils (%) (Auto) 1.8 % 1.9 % 2.5 % Basophils (%) (Auto) 0.6 % 0.5 % 0.6 % Neutrophils # (Auto) 4.5 TH/MM3 3.1 TH/MM3 3.5 TH/MM3 Lymphocytes # (Auto) 1.8 TH/MM3 1.8 TH/MM3 1.7 TH/MM3 Monocytes # (Auto) 0.9 TH/MM3 0.6 TH/MM3 0.7 TH/MM3 Eosinophils # (Auto) 0.1 TH/MM3 0.1 TH/MM3 0.2 TH/MM3 Basophils # (Auto) 0.0 TH/MM3 0.0 TH/MM3 0.0 TH/MM3 CBC Comment DIFF FINAL DIFF FINAL DIFF FINAL Differential Comment Prothrombin Time 12.0 SEC Prothromb Time International Ratio 1.2 RATIO Activated Partial Thromboplast Time 33.8 SEC Urine Color RED Urine Turbidity CLOUDY Urine pH 6.5 Urine Specific [place] 1.031 Urine Protein 300 OR GREATER mg/dL Urine Glucose (UA) NEG mg/dL Urine Ketones TRACE mg/dL Urine Occult Blood LARGE Urine Nitrite POS Urine Bilirubin NEG Urine Leukocyte Esterase NEGATIVE Urine RBC /hpf Microscopic Urinalysis Comment CULTURE INDICATED Blood Urea Nitrogen 17 MG/DL 15 MG/DL Creatinine 1.09 MG/DL 0.86 MG/DL Random Glucose 114 MG/DL 100 MG/DL Total Protein 6.4 GM/DL Albumin 3.3 GM/DL Calcium Level 8.4 MG/DL 8.2 MG/DL Alkaline Phosphatase 77 U/L Aspartate Amino Transf (AST/SGOT) 21 U/L Alanine Aminotransferase (ALT/SGPT) 14 U/L Total Bilirubin 0.7 MG/DL Sodium Level 142 MEQ/L 144 MEQ/L Potassium Level 4.3 MEQ/L 3.7 MEQ/L Chloride Level 111 MEQ/L 110 MEQ/L Carbon Dioxide Level 23.5 MEQ/L 26.5 MEQ/L Anion Gap 8 MEQ/L 8 MEQ/L Estimat Glomerular Filtration Rate 64 ML/MIN 84 ML/MIN Imaging Last Impressions Abdomen/Pelvis CT 01/20/182005 Signed Impressions: Service Date/Time: Saturday, January 20, 2018 21:00 - CONCLUSION: 1. Nonobstructing 6 mm calculus left kidney. Bilateral renal cysts mostly in the parapelvic region. 2. Enlarged prostate. Mild dependent density in the bladder could represent some bladder hemorrhage given history of hematuria. Heladio Garrett MD Objective Remarks General: NAD, Awake and alert Chest: CTA Cardiac: Irregular Abd: +BS, soft ND/NT Ext: No edema A/P Problem List: (1) Hematuria ICD Codes: R31.9 - Hematuria, unspecified Plan: Hematuria - Pt is an 86 y/o male with hypertension, atrial fibrillation on Pradaxa, hypertension, hyperlipidemia, GERD, BPH status post TURP 2012, and Parkinson's disease with mild dementia - He presented to the ED on 01/20/18 with complaints of hematuria - Lee in place irrigate as needed - H&H stable - Appreciate consultation from Dr. Manda rhodes he is recommending to maintain Lee catheter to gravity drainage until urine remains clear yellow in appearance for at least 48 hours Possible UTI - Urinalysis reviewed and reveals positive nitrates patient given ciprofloxacin emergency department - Urine culture reveals: <10,000 gram positive amie - No further abx Afib - Rate is currently controlled - Continue patient's home atenolol 25 mg daily - Patient having hematuria will hold Pradaxa. Will need to discuss with Urology when Pradaxa can be resumed HTN (hypertension) - Continue patient's home atenolol 25 mg daily and amlodipine 5 mg twice daily Diabetes mellitus type 2, diet-controlled - Diet controlled pt refusing diabetic diet Hyperlipidemia - Continue patient's home atorvastatin 40 mg p.o. nightly Dementia - Will continue patient's home carbidopa levodopa as well as Memantine (2) Afib ICD Codes: I48.91 - Unspecified atrial fibrillation (3) HTN (hypertension) ICD Codes: I10 - Essential (primary) hypertension Status: Chronic (4) Diabetes mellitus type 2, diet-controlled ICD Codes: E11.9 - Type 2 diabetes mellitus without complications Status: Chronic (5) Hyperlipidemia ICD Codes: E78.5 - Hyperlipidemia, unspecified Status: Chronic (6) Dementia ICD Codes: F03.90 - Unspecified dementia without behavioral disturbance Status: Chronic Assessment and Plan Patient examined. Assessment and plan formulated with Jeanie Alonso PA-C. I agree with the above. if hematuria still improved tomorrow will call urology and plan for d/c Jeanie Alonso January 22, 2018 10:49 Leonel Nicole MD January 22, 2018 12:13
[2018-01-22 12:00] VITALS: BP 128/75; PULSE 71; RESP 18; TEMP 98.3; O2SAT 94
[2018-01-22 16:00] VITALS: BP 117/66; PULSE 70; RESP 18; TEMP 97.7; O2SAT 93
[2018-01-22 19:42] VITALS: BP 114/59; PULSE 55; RESP 18; TEMP 98.6; O2SAT 95
[2018-01-22] MEDS: ATORVASTATIN 40 MG TAB PO SCH (20:28)
[2018-01-22] MEDS: DONEPEZIL HCL 5 MG TAB PO SCH (20:29)
[2018-01-23 00:01] VITALS: BP 127/72; PULSE 78; RESP 18; TEMP 97.6; O2SAT 93
[2018-01-23 08:00] VITALS: BP 137/88; PULSE 78; RESP 16; TEMP 97.6; O2SAT 95
[2018-01-23] MEDS: ATENOLOL 25 MG TAB PO SCH (08:43)
[2018-01-23] MEDS: amLODIPine BESYLATE 5 MG TAB PO SCH ×2 (08:44→22:39)
[2018-01-23] MEDS: CARBIDOPA/LEVODOPA 25 MG/250 MG TAB PO SCH ×3 (08:44→18:20)
[2018-01-23] MEDS: CHOLECALCIFEROL (VIT D3) 1000 UNIT TAB PO SCH (08:45)
[2018-01-23] MEDS: MEMANTINE HCL 10 MG TAB PO SCH ×2 (08:45→22:39)
[2018-01-23] MEDS: PANTOPRAZOLE SOD 40 MG DELAYED RELEASE TAB PO SCH ×2 (08:45→22:39)
[2018-01-23 12:00] VITALS: BP 115/44; PULSE 53; RESP 16; TEMP 97.3; O2SAT 96
--- NOTE | 2018-01-23 12:34 | HHI.PR ---
Subjective Remarks no complaints Objective Vitals heart reg lung cta abd s/nt ext no edema harry...some blood tinged urine in bag yellow urine in tube Vital Signs Date Time Temp Pulse Resp B/P (MAP) Pulse Ox O2 Delivery O2 Flow Rate FiO2 01/23/18 08:00 97.6 78 16 137/88 (104) 95 01/23/18 00:01 97.6 78 18 127/72 (90) 93 01/22/18 22:18 Room Air 01/22/18 19:42 98.6 55 18 114/59 (77) 95 01/22/18 16:00 97.7 70 18 117/66 (83) 93 01/23/18 01/23/18 01/24/18 15:00 23:00 07:00 Output Total 1200 ml Balance -1200 ml Output Urine Total 1200 ml Result Diagram: 01/22/18 0404 01/21/18 0425 Imaging Last Impressions Abdomen/Pelvis CT 01/20/182005 Signed Impressions: Service Date/Time: Saturday, January 20, 2018 21:00 - CONCLUSION: 1. Nonobstructing 6 mm calculus left kidney. Bilateral renal cysts mostly in the parapelvic region. 2. Enlarged prostate. Mild dependent density in the bladder could represent some bladder hemorrhage given history of hematuria. Heladio Garrett MD A/P Problem List: (1) Hematuria ICD Codes: R31.9 - Hematuria, unspecified Status: Acute Plan: Hematuria - Pt is an 86 y/o male with hypertension, atrial fibrillation on Pradaxa, hypertension, hyperlipidemia, GERD, BPH status post TURP 2012, and Parkinson's disease with mild dementia - He presented to the ED on 01/20/18 with complaints of hematuria - Harry in place irrigate as needed - H&H stable - Appreciate consultation from Dr. Holman he is recommending to maintain Harry catheter to gravity drainage until urine remains clear yellow in appearance for at least 48 hours He thinks the likely source is from the enlarged vascular prostate. Possible UTI - Urinalysis reviewed and reveals positive nitrates patient given ciprofloxacin emergency department - Urine culture reveals: <10,000 gram positive amie - No further abx Afib - Rate is currently controlled - Continue patient's home atenolol 25 mg daily - Patient having hematuria will hold Pradaxa. Urology says resume 5 days after urine is yellow. HTN (hypertension) - Continue patient's home atenolol 25 mg daily and amlodipine 5 mg twice daily Diabetes mellitus type 2, diet-controlled - Diet controlled pt refusing diabetic diet Hyperlipidemia - Continue patient's home atorvastatin 40 mg p.o. nightly Dementia - Will continue patient's home carbidopa levodopa as well as Memantine (2) Afib ICD Codes: I48.91 - Unspecified atrial fibrillation (3) HTN (hypertension) ICD Codes: I10 - Essential (primary) hypertension Status: Chronic (4) Diabetes mellitus type 2, diet-controlled ICD Codes: E11.9 - Type 2 diabetes mellitus without complications Status: Chronic (5) Hyperlipidemia ICD Codes: E78.5 - Hyperlipidemia, unspecified Status: Chronic (6) Dementia ICD Codes: F03.90 - Unspecified dementia without behavioral disturbance Status: Chronic Leonel Nicole MD January 23, 2018 12:34
[2018-01-23] MEDS: SODIUM CHLOR 0.9% 1000 ML INJ 1,000 ML IV SCH (13:24)
[2018-01-23 15:21] VITALS: BP 113/60; PULSE 72; RESP 18; TEMP 97.5; O2SAT 95
[2018-01-23 20:00] VITALS: BP 130/67; PULSE 68; RESP 18; TEMP 97.7; O2SAT 96
[2018-01-23] MEDS: DONEPEZIL HCL 5 MG TAB PO SCH (22:39)
[2018-01-23] MEDS: ATORVASTATIN 40 MG TAB PO SCH (22:39)
[2018-01-24 00:01] VITALS: BP 145/73; PULSE 79; RESP 18; TEMP 98.5; O2SAT 96
[2018-01-24] MEDS: SODIUM CHLOR 0.9% 1000 ML INJ 1,000 ML IV SCH ×2 (03:42→11:15)
[2018-01-24 08:00] VITALS: BP 133/80; PULSE 81; RESP 16; TEMP 97.7; O2SAT 93
[2018-01-24] MEDS: MEMANTINE HCL 10 MG TAB PO SCH ×2 (08:05→21:33)
[2018-01-24] MEDS: amLODIPine BESYLATE 5 MG TAB PO SCH ×2 (08:05→21:33)
[2018-01-24] MEDS: CHOLECALCIFEROL (VIT D3) 1000 UNIT TAB PO SCH (08:05)
[2018-01-24] MEDS: CARBIDOPA/LEVODOPA 25 MG/250 MG TAB PO SCH ×3 (08:05→17:20)
[2018-01-24] MEDS: PANTOPRAZOLE SOD 40 MG DELAYED RELEASE TAB PO SCH ×2 (08:05→21:33)
[2018-01-24] MEDS: ATENOLOL 25 MG TAB PO SCH (08:09)
[2018-01-24 11:47] VITALS: BP 115/60; PULSE 75; RESP 16; TEMP 98.3; O2SAT 96
[2018-01-24] MEDS ORDERED: MAGNESIUM HYDROXIDE SUSP 30 ML CUP PO PRN (12:45)
--- NOTE | 2018-01-24 13:25 | HHI.PR ---
Subjective Remarks left knee swollen. urine yellow Objective Vitals heart reg lung cta abd s/nt ext left knee mild effusion and reduced rom harry. yellow. Vital Signs Date Time Temp Pulse Resp B/P (MAP) Pulse Ox O2 Delivery O2 Flow Rate FiO2 01/24/18 11:47 98.3 75 16 115/60 (78) 96 01/24/18 08:00 97.7 81 16 133/80 (97) 93 01/24/18 07:31 Room Air 01/24/18 00:01 98.5 79 18 145/73 (97) 96 01/23/18 20:00 97.7 68 18 130/67 (88) 96 01/23/18 15:21 97.5 72 18 113/60 (77) 95 Result Diagram: 01/22/18 0404 01/21/18 0425 Imaging Last Impressions Abdomen/Pelvis CT 01/20/182005 Signed Impressions: Service Date/Time: Saturday, January 20, 2018 21:00 - CONCLUSION: 1. Nonobstructing 6 mm calculus left kidney. Bilateral renal cysts mostly in the parapelvic region. 2. Enlarged prostate. Mild dependent density in the bladder could represent some bladder hemorrhage given history of hematuria. Heladio Garrett MD A/P Problem List: (1) Hematuria ICD Codes: R31.9 - Hematuria, unspecified Status: Acute Plan: Hematuria - Pt is an 86 y/o male with hypertension, atrial fibrillation on Pradaxa, hypertension, hyperlipidemia, GERD, BPH status post TURP 2012, and Parkinson's disease with mild dementia - He presented to the ED on 01/20/18 with complaints of hematuria - Harry in place irrigate as needed - H&H stable - Appreciate consultation from Dr. Holman he is recommending to maintain Harry catheter to gravity drainage until urine remains clear yellow in appearance for at least 48 hours He thinks the likely source is from the enlarged vascular prostate. if urine clear in AM..then d/c harry His left knee is swollen. most likely reactive from arthritis. dose prednisone and recheck. Possible UTI - Urinalysis reviewed and reveals positive nitrates patient given ciprofloxacin emergency department - Urine culture reveals: <10,000 gram positive amie - No further abx Afib - Rate is currently controlled - Continue patient's home atenolol 25 mg daily - Patient having hematuria will hold Pradaxa. Urology says resume 5 days after urine is yellow. HTN (hypertension) - Continue patient's home atenolol 25 mg daily and amlodipine 5 mg twice daily Diabetes mellitus type 2, diet-controlled - Diet controlled pt refusing diabetic diet Hyperlipidemia - Continue patient's home atorvastatin 40 mg p.o. nightly Dementia - Will continue patient's home carbidopa levodopa as well as Memantine (2) Afib ICD Codes: I48.91 - Unspecified atrial fibrillation (3) HTN (hypertension) ICD Codes: I10 - Essential (primary) hypertension Status: Chronic (4) Diabetes mellitus type 2, diet-controlled ICD Codes: E11.9 - Type 2 diabetes mellitus without complications Status: Chronic (5) Hyperlipidemia ICD Codes: E78.5 - Hyperlipidemia, unspecified Status: Chronic (6) Dementia ICD Codes: F03.90 - Unspecified dementia without behavioral disturbance Status: Chronic Leonel Nicole MD January 24, 2018 13:25
[2018-01-24] MEDS ORDERED: predniSONE 20 MG TAB PO ONE (13:30)
[2018-01-24] MEDS: DOCUSATE SODIUM 100 MG CAP PO SCH ×2 (13:57→21:33)
[2018-01-24 16:00] VITALS: BP 130/67; PULSE 69; RESP 16; TEMP 98.6; O2SAT 95
[2018-01-24 20:00] VITALS: BP 106/64; PULSE 67; RESP 16; TEMP 99.1; O2SAT 95
[2018-01-24] MEDS: DONEPEZIL HCL 5 MG TAB PO SCH (21:33)
[2018-01-24] MEDS: ATORVASTATIN 40 MG TAB PO SCH (21:33)
[2018-01-25] VITALS: BP 123/68; PULSE 83; RESP 17; TEMP 98.2; O2SAT 94
[2018-01-25 08:00] VITALS: BP_SYST 116; BP_SYST 127; BP_DIAS 53; BP_DIAS 80; PULSE 86; PULSE 91; RESP 17; TEMP 98.2; TEMP 98.6; O2SAT 95; O2SAT 96
[2018-01-25] MEDS: CHOLECALCIFEROL (VIT D3) 1000 UNIT TAB PO SCH (10:19)
[2018-01-25] MEDS: PANTOPRAZOLE SOD 40 MG DELAYED RELEASE TAB PO SCH (10:19)
[2018-01-25] MEDS: MEMANTINE HCL 10 MG TAB PO SCH (10:19)
[2018-01-25] MEDS: CARBIDOPA/LEVODOPA 25 MG/250 MG TAB PO SCH ×2 (10:19→14:38)
[2018-01-25] MEDS: ATENOLOL 25 MG TAB PO SCH (10:19)
[2018-01-25] MEDS: amLODIPine BESYLATE 5 MG TAB PO SCH (10:19)
[2018-01-25] MEDS: DOCUSATE SODIUM 100 MG CAP PO SCH (10:20)
--- NOTE | 2018-01-25 10:52 | HHI.PR ---
Subjective Remarks left knee pain appears resolved. able to bend the knee eager for d/c. urine clear. Objective Vitals heart reg lung cta abd s/nt ext left knee swelling better has FROM now. harry. yellow urine. Vital Signs Date Time Temp Pulse Resp B/P (MAP) Pulse Ox O2 Delivery O2 Flow Rate FiO2 01/25/18 08:00 98.6 86 17 127/80 (96) 95 01/25/18 00:00 98.2 83 17 123/68 (86) 94 01/24/18 20:00 99.1 67 16 106/64 (78) 95 01/24/18 16:00 98.6 69 16 130/67 (88) 95 01/24/18 11:47 98.3 75 16 115/60 (78) 96 01/25/18 01/25/18 01/26/18 15:00 23:00 07:00 Intake Total 450 ml Output Total 650 ml Balance -200 ml Intake Oral 450 ml Output Urine Total 650 ml Result Diagram: 01/22/18 0404 01/21/18 0425 Imaging Last Impressions Abdomen/Pelvis CT 01/20/182005 Signed Impressions: Service Date/Time: Saturday, January 20, 2018 21:00 - CONCLUSION: 1. Nonobstructing 6 mm calculus left kidney. Bilateral renal cysts mostly in the parapelvic region. 2. Enlarged prostate. Mild dependent density in the bladder could represent some bladder hemorrhage given history of hematuria. Heladio Garrett MD A/P Problem List: (1) Hematuria ICD Codes: R31.9 - Hematuria, unspecified Status: Acute Plan: Hematuria - Pt is an 86 y/o male with hypertension, atrial fibrillation on Pradaxa, hypertension, hyperlipidemia, GERD, BPH status post TURP 2012, and Parkinson's disease with mild dementia - He presented to the ED on 01/20/18 with complaints of hematuria - Harry in place irrigate as needed - H&H stable - Appreciate consultation from Dr. Holman he is recommending to maintain Harry catheter to gravity drainage until urine remains clear yellow in appearance for at least 48 hours He thinks the likely source is from the enlarged vascular prostate. urine yellow. remove harry\ left knee effusion and pain resolved with a dose of prednisone reevaluate his ambulation status with PT today before deciding on home... is concerned about his balance. Possible UTI - Urinalysis reviewed and reveals positive nitrates patient given ciprofloxacin emergency department - Urine culture reveals: <10,000 gram positive amie - No further abx Afib - Rate is currently controlled - Continue patient's home atenolol 25 mg daily - Patient having hematuria will hold Pradaxa. Urology says resume 5 days after urine is yellow. HTN (hypertension) - Continue patient's home atenolol 25 mg daily and amlodipine 5 mg twice daily Diabetes mellitus type 2, diet-controlled - Diet controlled pt refusing diabetic diet Hyperlipidemia - Continue patient's home atorvastatin 40 mg p.o. nightly Dementia - Will continue patient's home carbidopa levodopa as well as Memantine (2) Afib ICD Codes: I48.91 - Unspecified atrial fibrillation (3) HTN (hypertension) ICD Codes: I10 - Essential (primary) hypertension Status: Chronic (4) Diabetes mellitus type 2, diet-controlled ICD Codes: E11.9 - Type 2 diabetes mellitus without complications Status: Chronic (5) Hyperlipidemia ICD Codes: E78.5 - Hyperlipidemia, unspecified Status: Chronic (6) Dementia ICD Codes: F03.90 - Unspecified dementia without behavioral disturbance Status: Chronic Leonel Nicole MD January 25, 2018 10:52
[2018-01-25 11:53] VITALS: BP 108/56; PULSE 55; RESP 17; TEMP 97.2; O2SAT 94
--- NOTE | 2018-01-25 12:00 | HHI.DCPOC ---
Discharge Care Plan Diagnosis: (1) Hematuria (2) Atrial fibrillation (3) Diabetes mellitus type 2, diet-controlled (4) HTN (hypertension) (5) Dementia (6) Parkinson disease Goals to Promote Your Health * To prevent worsening of your condition and complications * To maintain your health at the optimal level Directions to Meet Your Goals Take your medications as prescribed Follow your dietary instruction Follow activity as directed Keep your appointments as scheduled Take your immunizations and boosters as scheduled If your symptoms worsen call your PCP, if no PCP go to Urgent Care Center or Emergency Room Smoking is Dangerous to Your Health. Avoid second hand smoke Call the 24-hour hour crisis hotline for domestic abuse at Leonel Nicole MD January 25, 2018 12:00
[2018-01-25] MEDS ORDERED: PRAD150C PO (12:03)
== END 2018-01-25 18:50 | DRG 726 ==
LOC: NEPC 19:48 → NEDA 21:58 → N06A 22:43
PROVIDERS: ADMIT Hospitalist; ATTEND Hospitalist
DX: N40.1 Benign prostatic hyperplasia with lower urinary tract symptoms (principal); E11.22 Type 2 diabetes mellitus with diabetic chronic kidney disease; G20 Parkinson's disease; N39.0 Urinary tract infection, site not specified; R31.0 Gross hematuria; K21.9 Gastro-esophageal reflux disease without esophagitis; I27.20 Pulmonary hypertension, unspecified; F02.80 Dementia in other diseases classified elsewhere, unspecified severity, without behavioral disturbance, psychotic disturbance, mood disturbance, and anxiety; E78.5 Hyperlipidemia, unspecified; I48.91 Unspecified atrial fibrillation; N18.2 Chronic kidney disease, stage 2 (mild); N20.0 Calculus of kidney; I12.9 Hypertensive chronic kidney disease with stage 1 through stage 4 chronic kidney disease, or unspecified chronic kidney disease; Z88.2 Allergy status to sulfonamides; Z87.891 Personal history of nicotine dependence
CPT/HCPCS: 74176; 80048; 80053; 81001; 85025; 85610; 85730; 87086; J0744; J7030; J7512